=== PATIENT | female | born 1955 | race Caucasian/White ===

== ENCOUNTER 2022-03-10 06:55 | Inpatient (IN) | payer MEDICARE ==
[2022-03-10] MEDS ORDERED: SODIUM CHLORIDE 0.9% 1,000 ML IV ONE (07:05)
[2022-03-10] MEDS ORDERED: ASPIRIN 325 MG TAB ONE (07:05)
--- NOTE | 2022-03-10 07:07 | P.CRDCN ---
History of Present Illness History of present illness: HISTORY OF PRESENTING ILLNESS This is a pleasant 66-year-old with past medical history significant for depression/anxiety and no other medical problems. She has never had any prior cardiology complaints. She states she has had off-and-on mild upset stomach and heartburn type sensation or last 2 days however is fairly mild and then woke her up from her sleep at 5 AM this morning and felt somewhat diaphoretic. Patient therefore presented to [facility] and was found to have ST elevation. EKG showed sinus rhythm with ST elevation V1 and V2 and a lateral leads. Patient therefore was transferred to [facility] for heart catheterization and possible PCI. She denies any hematochezia or melena. No ALLERGIES other than penicillin. REVIEW OF SYSTEMS At the time of my exam: CONSTITUTIONAL: Denies fever or chills. CARDIOVASCULAR: +chest/ epigastric pain, +mild shortness of breath, no orthopnea, PND or palpitations. RESPIRATORY: Denies cough. GASTROINTESTINAL: Denies abdominal pain, diarrhea, constipation, +nausea no vomiting. MUSCULOSKELETAL: Denies myalgias. NEUROLOGIC: Denies numbness, tingling or weakness. ENDOCRINE: Denies fatigue, weight change, polydipsia or polyurina. GENITOURINARY: Denies burning, hematuria or urgency with micturation. HEMATOLOGIC: Denies history of anemia or bleeding. PHYSICAL EXAMINATION Vital signs reviewed. CONSTITUTIONAL: Mildly ill-appearing HEENT: Head is normocephalic. Pupils are equal, round. Sclerae anicteric. Mucous membranes of the mouth are moist. No JVD. No carotid bruit. CHEST EXAMINATION: Lungs are clear to auscultation. No chest wall tenderness is noted on palpation or with deep breathing. HEART EXAMINATION: Regular rate and rhythm. S1, S2 heard. No murmurs, gallops or rub. ABDOMEN: Soft, nontender. Positive bowel sounds. EXTREMITIES: 2+ peripheral pulses, no lower extremity edema and no calf tenderne ss. NEUROLOGIC EXAMINATION: Patient is awake, alert and oriented x3. ASSESSMENT 1. Anterolateral STEMI 2. History of depression/anxiety PLAN Discussed findings of EKG and risks and benefits of heart catheterization and possible PCI and patient is agreeable. Aspirin, heparin, check 2-D echo. Further recommendations to follow.
[2022-03-10] MEDS ORDERED: fentaNYL (PF) 50 MCG/ML 2 ML AMP ONE (07:08)
[2022-03-10] MEDS ORDERED: HEPARIN SODIUM 1,000 UN/ML (10ML VL) ONE (07:08)
[2022-03-10] MEDS ORDERED: LIDOCAINE 1% INJ 10MG/ML (5 ML VIAL-PF) SQ ONE (07:10)
[2022-03-10] MEDS ORDERED: fentaNYL (PF) 50 MCG/ML 2 ML AMP IV ONE (07:10)
[2022-03-10] MEDS ORDERED: MIDAZOLAM 2 MG/2 ML VIAL IV ONE (07:10)
[2022-03-10] MEDS ORDERED: VERAPAMIL SYRINGE (5 MG/10 ML) INTRAARTER ONE (07:14)
[2022-03-10] MEDS ORDERED: TICAGRELOR 90 MG TAB ONE (07:20)
[2022-03-10] MEDS ORDERED: TICAGRELOR 90 MG TAB PO ONE (07:20)
[2022-03-10] MEDS: HEPARIN SODIUM 1,000 UN/ML (10ML VL) IV ONE ×3 (07:20→07:41)
[2022-03-10] MEDS: NITROGLYCERIN 1000MCG/10ML SYRINGE INTRACORON ONE ×4 (07:34→07:50)
[2022-03-10] MEDS ORDERED: IOPAMIDOL-370 125ML BTL INJ ONE (07:45)
[2022-03-10] MEDS ORDERED: IOPAMIDOL-370 100ML BTL INJ ONE (07:55)
[2022-03-10] MEDS ORDERED: ZOLPIDEM 5 MG TAB PO PRN (08:07)
[2022-03-10] MEDS ORDERED: NITROGLYCERIN SL TABS 0.4 MG TAB SUBLINGUAL PRN (08:07)
[2022-03-10] MEDS ORDERED: ATROPINE SULFATE 0.1 MG/ML 10ML SYRINGE IV PRN (08:07)
[2022-03-10] MEDS ORDERED: RX INFO: IV CONTRAST WAS GIVEN 1 EACH MISC MISCELLANE PRN (08:07)
--- NOTE | 2022-03-10 08:07 | P.PRCINT ---
Percutaneous Coronary Int. - Percutaneous Coronary Intervention Percutaneous Coronary Intervention: PROCEDURES PERFORMED: Left heart catheterization, bilateral coronary angiography, PCI proximal LAD with a 3.0 x 15 mm Xience TJ post dilated with a 3.25 NC balloon, PCI mid LAD with a 2.75 x 8mm Xience TJ INDICATION: Anterior STEMI HISTORY: Patient is a pleasant 66-year-old female with family history of CAD, anxiety and GERD who presents with heartburn sensation as well as chest pain with associated diaphoresis and was found to have anterior lateral STEMI. She was transferred to [facility] from [facility]. CONSENT:I have discussed the risks, benefits and alternative therapies for the a rodolfo-mentioned procedure and for both sedation/analgesia as well as necessary blood product administration, if indicated, as they pertain to this patient. The patient has indicated understanding and acceptance of the risks and procedures discussed. PROCEDURE: After the risks, benefits and alternatives of the above mentioned procedure explained in detail with the patient, informed consent was obtained. Patient was taken to the catheterization lab and prepped and draped in usual fashion. 1% lidocaine was used to anesthetize the right radial artery. A 6- Serbian sheath was placed in the right radial artery using modified Seldinger technique. Left coronary angiography was performed with a 5-Serbian JL 3.5 catheter and right coronary angiography was performed with a 5-Serbian JR5 catheter in various views. The decision was made to perform PCI of the LAD. Heparin was given for ACT greater than 250. Initially a 6-Serbian CLS 3.0 catheter was attempted however somewhat of a superior takeoff and unable to reach. A 6-Serbian FL 3.5 catheter was also attempted however not able to easily engage. Therefore a 6-Serbian CLS 3.5 guide was used to engage the left main. A 0.014 BMW wire was advanced into the distal LAD. Predilation was performed with a 2.5 x 12 mm balloon. Next a 3.0 x 15 mm Xience TJ was placed proximally. There was a focal mid LAD 90% stenosis which was unimproved with any nitroglycerin and therefore PCI was performed of the mid LAD with a 2.75 x 8 mm Xience TJ. The proximal stent was postdilated with a 3.25 x 8 mm NC balloon. The wire was pulled and final an giograms were performed. Pre-intervention there was 100% stenosis and GINO 0 flow with an additional 90% mid LAD stenosis. Postintervention there was 0% stenosis and GINO-3 flow. There was mild to moderate diffuse distal LAD 40-50% stenosis felt best treated medically and likely some component of vasospasm. A 5-Serbian FR5 catheter was inserted into the left ventricle and pressure measurements were obtained. The right radial sheath was removed and a TR band was placed with hemostasis achieved. The patient tolerated the procedure well. Patient was transported back to the post catheterization holding area in stable condition. Conscious Sedation: Patient was monitored under the direct supervision of vision of myself for conscious sedation using Versed and fentanyl for a total duration of 50 minutes HEMODYNAMICS: Aorta: 105/71 LV: 93/8, LVEDP 15 SELECTIVE CORONARY ARTERIOGRAPHY: LEFT MAIN: The left main is a large caliber vessel which bifurcates into the LAD and circumflex. There is no significant stenosis. LEFT ANTERIOR DESCENDING CORONARY ARTERY: LAD is a large caliber vessel which wraps around to the apex. There is a proximal LAD 100% stenosis and a more focal mid LAD 90% stenosis. There is diffuse distal LAD 40-50% stenosis likely some component of vasospasm. LEFT CIRCUMFLEX CORONARY ARTERY: Left circumflex is a moderate caliber vessel with mild luminal irregularities. RIGHT CORONARY ARTERY: The right coronary artery is a large caliber vessel which gives off a PDA and PLV branch and is the dominant vessel. There is a mid RCA 50% stenosis and otherwise mild luminal irregularities. FINAL IMPRESSION: 1. CAD as described above including 100% proximal LAD, 90% mid LAD and 40-50% mid RCA stenosis. 2. S/p successful PCI proximal LAD with a 3.0 x 15 mm Xience TJ post dilated with a 3.25 NC balloon, PCI mid LAD with a 2.75 x 8mm Xience TJ 3. Borderline elevated left sided filling pressures PLAN: 1. Aggressive risk factor modification per most recent ACC/AHA guidelines. 2. Continue aspirin and Brillinta for a total of 12 months.
[2022-03-10 08:36] LABS: Glucose,Whole Blood 114 mg/dL (75-99)
--- NOTE | 2022-03-10 09:04 | P.PN ---
Subjective Progress Note Date: 03/10/22 The patient is a 66-year-old female with no significant past medical history who presented to the hospital this morning with new onset of chest discomfort with associated diaphoresis. The patient was subsequently diagnosed with an anterolateral ST elevated myocardial infarction. She underwent coronary an giogram where she received PCI to proximal and mid LAD. The patient is also noted to have an intermediate lesion in the mid RCA. The patient was interviewed and examined lying comfortably in ICU bed. She just returned from the [employer] lab[employer]. She states she is feeling much better since her stents were placed, although she may have some residual discomfort in her chest. No difficulty breathing. No heart racing or fluttering. GENERAL: Well-appearing, well-nourished and in no acute distress. NECK: Supple without JVD or thyromegaly. LUNGS: Breath sounds clear to auscultation bilaterally. Respiration equal and unlabored. No wheezes, rales or rhonchi. HEART: Regular rate and rhythm without murmurs, rubs or gallops. S1 and S2 heard. EXTREMITIES: Normal range of motion, no edema. No clubbing or cyanosis. Peripheral pulses intact and strong, TR band on the right wrist. TELEMETRY: Sinus mechanism IMPRESSION: ST elevated myocardial infarction, anterolateral, stenting to LAD PLAN: Echocardiogram pending Continue dual antiplatelet therapy and beta catarina Patient to be started on statin therapy Further recommendations will be based upon clinical course I am dictating on behalf of Dr Richard Rojas's history/physical and assessment/plan. Objective - Vital Signs Vital signs: Intake & Output 03/09/22 03/10/22 03/10/22 18:59 06:59 18:59 Intake Total 150 Balance 150 Weight 59 kg Intake: IV 150 - Labs Labs: Abnormal Lab Results - Last 24 Hours (Table) 03/10/22 Range/Units 08:35 POC Glucose (mg/dL) 114 H (75-99) mg/dL
[2022-03-10] MEDS: MAG HYDROX/AL HYDROX/SIMETH 30 ML CUP PO PRN (09:30)
[2022-03-10] MEDS: METOPROLOL TARTRATE 12.5 MG TAB PO SCH ×2 (09:30→20:03)
[2022-03-10] MEDS: SODIUM CHLORIDE 0.9% 1,000 ML in EMPTY BAG 1 BAG IV SCH (09:31)
[2022-03-10 10:22] VITALS: BMI 20.9
--- NOTE | 2022-03-10 12:01 | CA ---
Transthoracic Echo Report Name: La Matthews Age: 66 Gender: F : 1955 Exam Date: 03/10/2022 09:50 Exam Location: [place] [facility] Ht (in): 66 Wt (lb): 130 Ordering Physician: Rachel Hargrove Attending/Referring Phys: [id number], [employer] Teacher Valerie Yanez RDCS Procedure CPT: Indications: stemi Cardiac Hx: Technical Quality: Fair Contrast 1: Total Dose (mL): Contrast 2: Total Dose (mL): MEASUREMENTS (Male / Female) Normal Values 2D ECHO LV Diastolic Diameter PLAX 4.4 cm 4.2 - 5.9 / 3.9 - 5.3 cm LV Systolic Diameter PLAX 2.8 cm IVS Diastolic Thickness 1.3 cm 0.6 - 1.0 / 0.6 - 0.9 cm LVPW Diastolic Thickness 1.2 cm 0.6 - 1.0 / 0.6 - 0.9 cm LV Relative Wall Thickness 0.6 RV Internal Dim ED PLAX 2.7 cm LA Volume 56.1 cm??? 18 - 58 / 22 - 52 cm??? M-MODE Aortic Root Diameter MM 3.1 cm LA Systolic Diameter MM 3.3 cm LA Ao Ratio MM 1.1 AV Cusp Separation MM 1.9 cm DOPPLER AV Peak Velocity 96.0 cm/s AV Peak Gradient 3.7 mmHg LVOT Peak Velocity 90.1 cm/s LVOT Peak Gradient 3.2 mmHg MV Area PHT 2.7 cm??? Mitral E Point Velocity 54.7 cm/s Mitral A Point Velocity 56.1 cm/s Mitral E to A Ratio 1.0 MV Deceleration Time 276.1 ms MV E' Velocity 4.5 cm/s Mitral E to MV E' Ratio 12.1 TR Peak Velocity 214.9 cm/s TR Peak Gradient 18.5 mmHg Right Ventricular Systolic Press 23.5 mmHg FINDINGS Left Ventricle Mildly increased left ventricular wall thickness. Left ventricular cavity size normal. [place] hypokinetic. Apical anterior, Apical Inferior, Apical septal, Apical lateral wall Hypokinesis. Left ventricular ejection fraction is estimated at 30 to 35%. Right Ventricle Normal right ventricular size and function. Right ventricular systolic pressure within normal limits. Right Atrium Normal right atrial size. Left Atrium Mildly increased left atrial volume. No evidence for an atrial septal defect. Mitral Valve Mild mitral annular calcification. Mitral valve thickened. Mild mitral regurgitation. Aortic Valve Trileaflet aortic valve. Aortic valve sclerosis. No aortic valve stenosis or regurgitation. Tricuspid Valve Structurally normal tricuspid valve. Mild tricuspid regurgitation. Pulmonic Valve Structurally normal pulmonic valve. Trace pulmonic regurgitation. Pericardium No pericardial effusion. Aorta Normal size aortic root and proximal ascending aorta. CONCLUSIONS #1. Normal liver and left ankle size with severe hypokinesia of the apical segment anteroapical and inferoapical segment with severely impaired LV function and an ejection fraction of 30-35%. #2. Mild mitral regurgitation and tricuspid regurgitation Previewed by: Dr. Heath Kearney MD (Electronically Signed) Final Date: 10 March 2022 12:00
[2022-03-10] MEDS: FLUoxetine HCL 20 MG CAP PO SCH (12:24)
[2022-03-10] MEDS: ACETAMINOPHEN TAB 325 MG TAB PO PRN ×2 (12:24→20:07)
[2022-03-10] MEDS: PANTOPRAZOLE 40 MG/10 ML VIAL IVP SCH (12:25)
--- NOTE | 2022-03-10 13:54 | P.HPIM ---
History of Present Illness H&P Date: 03/10/22 Chief Complaint: Chest pain Patient is a 66-year-old female with a known history of anxiety/depression and GERD presents to ER with complaints of chest pain. Patient states that she woke up around 5 AM this morning with mid retrosternal chest pain. Initially she thought it might be due to her GERD symptoms but pain is not relieving. Associated shortness of breath and left arm aching feeling. Did have nausea. No episodes of vomiting. She felt diaphoretic and told her her roommate who brought her to ER. Initially patient presented to [facility] and found to have ST elevation in the anterior leads. She was transferred to [facility] for cardiac catheterization and stent placement. Otherwise patient denies any cough or sputum production. Recent illnesses. No exertional dyspnea. No leg swelling. No dizziness or palpitations. Patient underwent cardiac catheterization and stent placement x2 to LAD and patient was transferred to MICU for monitoring. Review of Systems Constitutional: Patient denies any fever or chills . No generalized weakness or weight loss. Abdomen: Patient denied nausea vomiting and diarrhea and abdominal pain. Cardiovascular: Patient denies any chest pain or short of breath no palpitations. Respiratory: patient denied any cough is from production. No shortness of breath Neurologic: Patient denied any numbness or tingling headache. Musculoskeletal: Patient denies any complaints of joint swelling or deformity. Skin: Negative Psychiatric: Negative Endocrine: No heat or cold intolerance. No recent weight gain. Genitourinary: No dysuria or hematuria. All other 14 point ROS negative except the above Past Medical History Past Medical History: GERD/Reflux, Myocardial Infarction (non Q-wave) Last Myocardial Infarction Date:: t History of Any Multi-Drug Resistant Organisms: None Reported Past Surgical History: No Surgical Hx Reported, Heart Catheterization With Stent Past Anesthesia/Blood Transfusion Reactions: No Reported Reaction Date of Last Stent Placement:: 03/10/2022 Past Psychological History: Anxiety, Depression Smoking Status: Current some day smoker Medications and Allergies Home Medications Medication Instructions Recorded Confirmed Type FLUoxetine HCL 40 mg PO DAILY 03/10/22 03/10/22 History Omeprazole 20 mg PO DAILY 03/10/22 03/10/22 History Allergies Allergy/AdvReac Type Severity Reaction Status Date / Time Penicillins AdvReac Rash/Hives Verified 03/10/22 11:29 Physical Exam Vitals: Vital Signs Temp Pulse Resp BP Pulse Ox 03/10/22 11:30 67 7 L 116/73 98 03/10/22 11:00 66 10 L 114/74 99 03/10/22 10:30 65 12 114/74 98 03/10/22 10:00 65 8 L 121/66 99 03/10/22 09:30 41 H 121/66 96 03/10/22 09:00 98.0 F 67 10 L 101/73 97 03/10/22 08:30 49 H 101/73 96 03/10/22 08:21 17 Intake and Output 03/09/22 03/10/22 03/10/22 22:59 06:59 14:59 Intake Total 866 Output Total 0 Balance 866 Intake: IV 150 Intake, IV Titration 236 Amount Sodium Chloride 0.9% 1, 236 000 ml In Empty Bag 1 bag @ 1 ML/KG/HR 59 mls/hr IV .[id number] [facility] Rx#: [id number] Oral 480 Output: Urine 0 Other: Weight 59 kg PHYSICAL EXAMINATION: Patient is lying in the bed comfortably, no acute distress, awake alert and oriented.. HEENT: Normocephalic. Neck is supple. Pupils reactive. Nostrils clear. Oral cavity is moist. Neck reveals no JVD, carotid bruits, or thyromegaly. CHEST EXAMINATION: Trachea is central. Symmetrical expansion. Lung musa clear to auscultation and percussion. CARDIAC: Normal S1, S2 with no gallops. No murmurs ABDOMEN: Soft. Bowel sounds normal. No organomegaly. No abdominal bruits. Extremities: reveal no edema. No clubbing or cyanosis Neurologically awake, alert, oriented x3 with well-coordinated movements. No focal deficits noted Skin: No rash or skin lesions. Psychiatric: Coperative. Nonsuicidal Musculoskeletal: No joint swelling or deformity. Normal range of motion. Results Labs: Abnormal Lab Results - Last 24 Hours (Table) 03/10/22 Range/Units 08:35 POC Glucose (mg/dL) 114 H (75-99) mg/dL Thrombosis Risk Factor Assmnt - DVT/VTE Prophylaxis DVT/VTE Prophylaxis: Pharmacologic Prophylaxis ordered - Choose All That Apply Any of the Below Risk Factors Present?: Yes Each Factor Represents 1 point: Acute [place] Each Risk Factor Represents 2 Points: Age 61-74 years Thrombosis Risk Factor Assessment Total Risk Factor Score: 3 Thrombosis Risk Factor Assessment Level: Moderate Risk Assessment and Plan Assessment: Acute ST elevated [place] status post stent placement x2 to LAD Anxiety/depression GERD DVT prophylaxis with heparin subcu Plan: Patient will be continued on telemetry monitoring, continue with aspirin, Brilinta and metoprolol was started. Continue with statins and close monitoring in the MICU. Cardiology is on board. Current with home medications and follow- up closely. Time with Patient: Greater than 30
[2022-03-10] MEDS: HEPARIN SODIUM,PORCINE/PF 5,000 UNIT/0.5 ML SYRINGE SQ SCH (19:10)
[2022-03-10] MEDS: ATORVASTATIN 80 MG TAB PO SCH (20:03)
[2022-03-11] MEDS: HEPARIN SODIUM,PORCINE/PF 5,000 UNIT/0.5 ML SYRINGE SQ SCH ×3 (00:15→18:52)
[2022-03-11 06:12] LABS: Basophils # (A) 0.1 k/uL (0-0.2); Basophils % (A) 1 %; Eosinophils # (A) 0.1 k/uL (0-0.7); Eosinophils % (A) 1 %; HGB 11.4 gm/dL (11.4-16.0); Hypochromasia Slight; Lymphocytes # (A) 1.7 k/uL (1.0-4.8); Lymphocytes % (A) 21 %; MCH 25.6 pg (25.0-35.0); MCHC 30.1 g/dL (31.0-37.0); MCV 84.9 fL (80.0-100.0); Mean Platelet Volume 7.2; Monocytes # (A) 0.4 k/uL (0-1.0); Monocytes % (A) 5 %; Neutrophils # (A) 5.7 k/uL (1.3-7.7); Neutrophils % (A) 72 %; Platelet Count 326 k/uL (150-450); RBC 4.48 m/uL (3.80-5.40); RDW 14.6 % (11.5-15.5); WBC 7.9 k/uL (3.8-10.6)
[2022-03-11] MEDS: PANTOPRAZOLE 40 MG/10 ML VIAL IVP SCH (06:54)
[2022-03-11 06:55] LABS: African American GFR (CKD) 85 (>60 ml/min/1.73 sqM); Anion Gap 4 mmol/L; Blood Urea Nitrogen 17 mg/dL (7-17); Calcium 8.7 mg/dL (8.4-10.2); Carbon Dioxide 25 mmol/L (22-30); Chloride 104 mmol/L (98-107); Glucose 101 mg/dL (74-99); Non-African American GFR(CKD) 74 (>60 ml/min/1.73 sqM); Potassium 4.6 mmol/L (3.5-5.1); Sodium 133 mmol/L (137-145)
[2022-03-11] MEDS: SODIUM CHLORIDE 0.9% 1,000 ML in EMPTY BAG 1 BAG IV SCH ×2 (08:34→18:52)
[2022-03-11] MEDS: METOPROLOL TARTRATE 25 MG TAB PO SCH ×2 (08:35→20:54)
[2022-03-11] MEDS: FLUoxetine HCL 20 MG CAP PO SCH (08:35)
[2022-03-11] MEDS: TICAGRELOR 90 MG TAB PO SCH ×2 (08:35→20:54)
[2022-03-11] MEDS: ASPIRIN 81 MG PO SCH (08:35)
--- NOTE | 2022-03-11 09:10 | P.PN ---
Subjective Progress Note Date: 03/11/22 The patient is a 66-year-old female with no significant past medical history who presented to the hospital this morning with new onset of chest discomfort with associated diaphoresis. The patient was subsequently diagnosed with an anterolateral ST elevated myocardial infarction. She underwent coronary an giogram where she received PCI to proximal and mid LAD. The patient is also noted to have an intermediate lesion in the mid RCA. Echocardiogram reveals reduced LV function at 30-35% with apical hypokinesis. No significant valvular abnormalities. The patient was interviewed and examined lying comfortably in ICU bed. She states she did well overnight. She is feeling much better since her initial presentation. No chest pain or chest pressure. No heart racing or fluttering. No dizziness or orthopnea. GENERAL: Well-appearing, well-nourished and in no acute distress. NECK: Supple without JVD or thyromegaly. LUNGS: Breath sounds clear to auscultation bilaterally. Respiration equal and unlabored. No wheezes, rales or rhonchi. HEART: Regular rate and rhythm without murmurs, rubs or gallops. S1 and S2 heard. EXTREMITIES: Normal range of motion, no edema. No clubbing or cyanosis. Periph eral pulses intact and strong, +2 pulse right wrist. Minimal bruising VITALS: Blood pressure 106/71 pulse 66, temp 98.4F, SpO2 93% on room air TELEMETRY: Sinus mechanism with heart rates in the 60s to 70s LAB DATA: WBC 7.9, hemoglobin 11.4, hematocrit 38.0, platelet 326, sodium 133, potassium 4 .6, BUN 17, creatinine 0.82, TSH 2.5 IMPRESSION: ST elevated myocardial infarction, anterolateral, stenting to LAD Ischemic cardiomyopathy, EF 30-35% History of anxiety and depression PLAN: Increase metoprolol to 25 mg twice daily Consideration for starting spironolactone Patient may be transferred to stepdown unit Further recommendations will be based upon clinical course I am dictating on behalf of Dr Richard Rojas's history/physical and assessment/plan. Objective - Vital Signs Vital signs: Vital Signs Temp 98.4 F 03/11/22 08:30 Pulse 66 03/11/22 08:30 Resp 18 03/11/22 08:30 BP 106/71 03/11/22 08:30 Pulse Ox 93 L 03/11/22 08:30 FiO2 Intake & Output 03/10/22 03/11/22 03/11/22 18:59 06:59 18:59 Intake Total 1639 59 240 Output Total 350 600 0 Balance 1289 -541 240 Weight 59 kg 71.3 kg Intake: IV 150 Intake, IV Titration 649 59 Amount Sodium Chloride 0.9% 1, 649 59 000 ml In Empty Bag 1 bag @ 1 ML/KG/HR 59 mls/hr IV .[id number] [facility] Rx#: [id number] Oral 840 240 Output: Urine 350 600 0 - Labs CBC & Chem 7: 03/11/22 05:58 03/11/22 05:58 Labs: Abnormal Lab Results - Last 24 Hours (Table) 03/11/22 03/11/22 Range/Units 05:58 05:58 MCHC 30.1 L (31.0-37.0) g/dL Sodium 133 L (137-145) mmol/L Glucose 101 H (74-99) mg/dL
[2022-03-11 17:34] LABS: Chol/HDL Ratio 4.71 Ratio; LDL Cholesterol,Calculated 152.1 mg/dL (0.0-131.0)
--- NOTE | 2022-03-11 20:52 | P.PN ---
Subjective Progress Note Date: 03/11/22 Patient is a 66-year-old female with a known history of anxiety/depression and GERD presents to ER with complaints of chest pain. Patient states that she woke up around 5 AM this morning with mid retrosternal chest pain. Initially she thought it might be due to her GERD symptoms but pain is not relieving. Associated shortness of breath and left arm aching feeling. Did have nausea. No episodes of vomiting. She felt diaphoretic and told her her roommate who brought her to ER. Initially patient presented to [facility] and found to have ST elevation in the anterior leads. She was transferred to [facility] for cardiac catheterization and stent placement. Otherwise patient denies any cough or sputum production. Recent illnesses. No exertional dyspnea. No leg swelling. No dizziness or palpitations. Patient underwent cardiac catheterization and stent placement x2 to LAD and patient was transferred to MICU for monitoring. 03/11/2022 Patient is seen in follow up today and is status post stents being placed to the LAD. Cardiology following and recommend to continue telemetry monitoring. Patient possibly to be transferred out of the ICU to selective unit today if bed is available. Patient is afebrile and denies chest pain or shortness of breath. Patient reports to being lethargic today and not much sleep last night. Patient encouraged to increase activity as tolerated and encouraged oral intake. Review of systems: Constitutional: reports of fatigue, no fever, or chills Cardiovascular: No reports of chest pain or palpitations Respiratory: No reports of shortness of breath or cough GI: No reports of nausea, no reports of of vomiting : No reports of dysuria or retention Neurovascular: no reports of generalized weakness All medications have been reviewed PHYSICAL EXAMINATION: Patient is lying in the bed comfortably, no acute distress, awake alert and oriented.. HEENT: Normocephalic. Neck is supple. Pupils reactive. Nostrils clear. Oral cavity is moist. Neck reveals no JVD, carotid bruits, or thyromegaly. CHEST EXAMINATION: Trachea is central. Symmetrical expansion. Lung musa clear to auscultation and percussion. CARDIAC: Normal S1, S2 with no gallops. No murmurs ABDOMEN: Soft. Bowel sounds normal. No organomegaly. No abdominal bruits. Extremities: reveal no edema. No clubbing or cyanosis Neurologically awake, alert, oriented x3 with well-coordinated movements. No focal deficits noted Skin: No rash or skin lesions. Psychiatric: Cooperative. Non-suicidal Musculoskeletal: No joint swelling or deformity. Normal range of motion. Assessment: Acute ST elevated [place] status post stent placement x2 to LAD Anxiety/depression GERD DVT prophylaxis with heparin subcu GI prophylaxis Full code Plan: Patient will be continued on telemetry monitoring, continue with aspirin, Brilinta and metoprolol was started. Continue with statins and close monitoring in the MICU. Possible transfer to selective unit out of ICU today. Cardiology is on board. Encouraged oral intake and increased activity as tolerated. Discussed lifestyle modifications and diet preferences. Follow up with am labs and possible discharge in 24 hours. The impression and plan of care has been dictated by Alanna Bingham, Nurse Practitioner as directed. Dr. Kati MD I have performed a history and examination and MDM of this patient, discussed the same with the dictator, and agree with the dictator's assessment and plan as written ,documented as a scribe. Based on total visit time, I have performed more than 50% of the visit. Objective - Vital Signs Vital signs: Vital Signs Temp 98.4 F 03/11/22 08:30 Pulse 66 03/11/22 08:30 Resp 18 03/11/22 08:30 BP 106/71 03/11/22 08:30 Pulse Ox 93 L 03/11/22 08:30 FiO2 Intake & Output 03/10/22 03/11/22 03/11/22 18:59 06:59 18:59 Intake Total 1639 59 240 Output Total 350 600 0 Balance 1289 -541 240 Weight 59 kg 71.3 kg Intake: IV 150 Intake, IV Titration 649 59 Amount Sodium Chloride 0.9% 1, 649 59 000 ml In Empty Bag 1 bag @ 1 ML/KG/HR 59 mls/hr IV .[id number] [facility] Rx#: [id number] Oral 840 240 Output: Urine 350 600 0 - Labs CBC & Chem 7: 03/11/22 05:58 03/11/22 05:58 Labs: Abnormal Lab Results - Last 24 Hours (Table) 03/11/22 03/11/22 Range/Units 05:58 05:58 MCHC 30.1 L (31.0-37.0) g/dL Sodium 133 L (137-145) mmol/L Glucose 101 H (74-99) mg/dL
[2022-03-11] MEDS: ATORVASTATIN 80 MG TAB PO SCH (20:53)
[2022-03-11 22:11] LABS: Glucose,Whole Blood 110 mg/dL (75-99)
[2022-03-12] MEDS: HEPARIN SODIUM,PORCINE/PF 5,000 UNIT/0.5 ML SYRINGE SQ SCH ×4 (00:33→23:24)
[2022-03-12] MEDS: PANTOPRAZOLE 40 MG TABLET PO SCH (06:26)
[2022-03-12 07:44] LABS: Calcium 8.7 mg/dL (8.4-10.2); Potassium 4.7 mmol/L (3.5-5.1)
[2022-03-12] MEDS ORDERED: SPIRONOLACTONE 25 MG TAB PO SCH ×2 (09:15→21:00)
[2022-03-12] MEDS: FLUoxetine HCL 20 MG CAP PO SCH (09:35)
[2022-03-12] MEDS: ASPIRIN 81 MG PO SCH (09:36)
[2022-03-12] MEDS: TICAGRELOR 90 MG TAB PO SCH ×2 (09:36→19:40)
[2022-03-12] MEDS: METOPROLOL TARTRATE 25 MG TAB PO SCH ×2 (09:36→19:40)
--- NOTE | 2022-03-12 11:05 | XR ---
EXAMINATION TYPE: XR chest 1V portable DATE OF EXAM: 03/12/2022 COMPARISON: NONE HISTORY: Shortness of breath TECHNIQUE: Single frontal view of the chest is obtained. FINDINGS: Minimal bilateral apical pleural thickening. Suspected COPD changes. Grossly unremarkable lungs other constantino. No sizable pleural effusion or definite pneumothorax. No cardiomegaly. Questionable small sliding hia pa hernia. No gross aggressive bone lesion. IMPRESSION: As above.
--- NOTE | 2022-03-12 13:04 | P.PN ---
Subjective This is a pleasant 66-year-old with past medical history significant for depression/anxiety and no other medical problems. She has never had any prior cardiology complaints. 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 Patient initially presented to [facility] with off-and-on mild upset stomach and heartburn type sensation or last 2 days, she woke her up from her sleep felt somewhat diaphoretic. Patient therefore presented to [facility] and was found to have ST elevation. EKG showed sinus rhythm with ST elevation V1 and V2 and a lateral leads. Patient was transferred to [facility] for heart catheterization and possible PCI. 03/10/2022- Patient underwent cardiac catheterization with Dr. Loyd, which revealed 100% proximal LAD, 90% mid LAD and 40-50% mid RCA stenosis. She underwent successful PCI to proximal LAD and mid LAD. Echocardiogram revealed reduced LV function at 30-35% with apical hypokinesis. No significant valvular abnormalities. 03/12/2022 Patient seen and examined at bedside, no acute distress. She denies any chest pain. Overnight she did wake up with shortness of breath x 1. No acute events on telemetry. No hypertension noted. no hypoxia. She was placed back on Oxygen and no further events occurred. Blood pressure 104/65, heart rate 61, she is maintaining sinus mechanism with heart rate in the 60s to 70s. She is currently maintained on dual antiplatelet therapy with aspirin and Brilinta, atorvastatin 80 mg nightly, metoprolol tartrate 25 mg twice a day. PHYSICAL EXAMINATION Vital signs reviewed. CONSTITUTIONAL: No acute distress. HEENT: Neck Supple. No JVD. No carotid bruit. CHEST EXAMINATION: Lungs are clear to auscultation. No chest wall tenderness is noted on palpation or with deep breathing. HEART EXAMINATION: Regular rate and rhythm. S1, S2 heard. No murmurs, gallops or rub. ABDOMEN: Soft, nontender. Positive bowel sounds. EXTREMITIES: 2+ peripheral pulses, no lower extremity edema and no calf tenderness. NEUROLOGIC EXAMINATION: Patient is awake, alert and oriented x3. SKIN: right radial cath site clean dry intact no hematoma ASSESSMENT Anterolateral STEMI Status post PCI to proximal LAD and mid LAD on 03/10/2022 Ischemic cardiomyopathy with EF 30-35% Hypotension Dyslipidemia History of depression/anxiety Episode of shortness of breath 6/7 night, possibly related to Brilinta will monitor PLAN Add Spironolactone 12.5mg daily Check BMP tomorrow Dual antiplatelet therapy with aspirin and Brilinta Continue statin and metoprolol Not on ACEI secondary to hypotension Case management consulted for Brilinta coverage, $141 for 3 month supply, 1 month free. Continue to monitor patient for additional 24 hours. Further recommendations based on clinical course Nurse practitioner note has been reviewed by physician. Signing provider agrees with the documented findings, assessment, and plan of care. Objective - Vital Signs Vital signs: Vital Signs Temp 98.1 F 03/12/22 08:00 Pulse 61 03/12/22 12:00 Resp 18 03/12/22 12:00 BP 104/65 03/12/22 12:00 Pulse Ox 98 03/12/22 12:00 FiO2 Intake & Output 03/11/22 03/12/22 03/12/22 18:59 06:59 18:59 Intake Total 1080 240 Output Total 600 Balance 480 240 Intake: Oral 1080 240 Output: Urine 600 Other: Voiding Method Toilet # Voids 0 - Labs CBC & Chem 7: 03/11/22 05:58 03/12/22 06:37 Labs: Abnormal Lab Results - Last 24 Hours (Table) 03/11/22 03/11/22 03/12/22 Range/Units 05:58 22:08 06:37 Sodium 131 L (137-145) mmol/L Carbon Dioxide 21 L (22-30) mmol/L Glucose 100 H (74-99) mg/dL POC Glucose (mg/dL) 110 H (75-99) mg/dL Triglycerides 165.00 H (0.00-149.00) mg/dL Cholesterol 235.00 H (0.00-200.00) mg/dL LDL Cholesterol, Calc 152.1 H (0.0-131.0) mg/dL
--- NOTE | 2022-03-12 14:39 | P.PN ---
Subjective Progress Note Date: 03/12/22 Patient is a 66-year-old female with a known history of anxiety/depression and GERD presents to ER with complaints of chest pain. Patient states that she woke up around 5 AM this morning with mid retrosternal chest pain. Initially she thought it might be due to her GERD symptoms but pain is not relieving. Associated shortness of breath and left arm aching feeling. Did have nausea. No episodes of vomiting. She felt diaphoretic and told her her roommate who brought her to ER. [facility] patient presented to [facility] and found to have ST elevation in the anterior leads. She was transferred to [facility] for cardiac catheterization and stent placement. Otherwise patient denies any cough or sputum production. Recent illnesses. No exertional dyspnea. No leg swelling. No dizziness or palpitations. Patient underwent cardiac catheterization and stent placement x2 to LAD and patient was transferred to MICU for monitoring. 03/11/2022 Patient is seen in follow up today and is status post stents being placed to the LAD. Cardiology following and recommend to continue telemetry monitoring. Patient possibly to be transferred out of the ICU to selective unit today if bed is available. Patient is afebrile and denies chest pain or shortness of breath. Patient reports to being lethargic today and not much sleep last night. Patient encouraged to increase activity as tolerated and encouraged oral intake. 03/12/2022 Patient is seen in follow-up today currently maintained on 2 L as patient reports she had some mild shortness of breath overnight and was placed on oxygen and is feeling better. Patient blood pressure on the lower side as well with multiple medication adjustments with cardiology following closely. Case management working on insurance verification of coverage for HOSTEXta. Will order chest x-ray. Sodium on the lower side at 131 and patient reports tonight eating very much and not having much of an appetite. Patient also reports she d id have severe epigastric discomfort prior to ER admission which has since resolved. Patient is maintained on Protonix and will continue for now. Patient is afebrile and denies any chest pain. Patient was also started on low- dose Aldactone and encourage the patient to increase activity as tolerated and will also order incentive spirometer. Family member at the bedside and questions and concerns were answered. Review of systems: Constitutional: reports of fatigue, no fever, or chills Cardiovascular: No reports of chest pain or palpitations Respiratory: No reports of shortness of breath or cough GI: No reports of nausea, no reports of of vomiting : No reports of dysuria or retention Neurovascular: no reports of generalized weakness All medications have been reviewed Active Medications Acetaminophen (Acetaminophen Tab 325 Mg Tab) 650 mg PO Q4HR PRN PRN Reason: Fever and/ or MILD Pain Last Admin: 03/10/22 20:07 Dose: 650 mg Al Hydroxide/Mg Hydroxide (Mag Hydrox/Al Hydrox/Simeth 30 Ml Cup) 30 ml PO Q4HR PRN PRN Reason: Heartburn Last Admin: 03/10/22 09:30 Dose: 30 ml Aspirin (Aspirin 81 Mg) 81 mg PO DAILY [facility] Last Admin: 03/12/22 09:36 Dose: 81 mg Atorvastatin Calcium (Atorvastatin 80 Mg Tab) 80 mg PO HS [facility] Last Admin: 03/11/22 20:53 Dose: 80 mg Atropine Sulfate (Atropine Sulfate 0.1 Mg/Ml 10ml Syringe) 0.5 mg IV ONCE PRN PRN Reason: Symptomatic Bradycardia Fluoxetine HCl (Fluoxetine Hcl 20 Mg Cap) 40 mg PO DAILY [facility] Last Admin: 03/12/22 09:35 Dose: 40 mg Heparin Sodium (Porcine) (Heparin Sodium,Porcine/Pf 5,000 Unit/0.5 Ml Syringe) 5,000 unit SQ Q8HR [facility] Last Admin: 03/12/22 09:36 Dose: 5,000 unit Sodium Chloride 1,000 ml/ IV (Solution) 1,000 mls @ 59 mls/hr IV .[id number] [facility] Last Admin: 03/11/22 18:52 Dose: Not Given Metoprolol Tartrate (Metoprolol Tartrate 25 Mg Tab) 25 mg PO BID [facility] Last Admin: 03/12/22 09:36 Dose: 25 mg Nitroglycerin (Nitroglycerin Sl Tabs 0.4 Mg Tab) 0.4 mg SUBLINGUAL Q5M PRN PRN Reason: Chest Pain Pantoprazole Sodium (Pantoprazole 40 Mg Tablet) 40 mg PO [id number] [facility] Last Admin: 03/12/22 06:26 Dose: 40 mg Spironolactone (Spironolactone 25 Mg Tab) 12.5 mg PO DAILY [facility] Last Admin: 03/12/22 09:36 Dose: 12.5 mg Ticagrelor (Ticagrelor 90 Mg Tab) 90 mg PO BID [facility]; Protocol Last Admin: 03/12/22 09:36 Dose: 90 mg Zolpidem Tartrate (Zolpidem 5 Mg Tab) 5 mg PO HS PRN PRN Reason: Insomnia PHYSICAL EXAMINATION: Patient is sitting up in the bed comfortably, no acute distress, awake alert and oriented.. HEENT: Normocephalic. Neck is supple. Pupils reactive. Nostrils clear. Oral cavity is moist. Neck reveals no JVD, carotid bruits, or thyromegaly. CHEST EXAMINATION: Trachea is central. Symmetrical expansion. Diminished breath sounds bilaterally otherwise Lung musa clear to auscultation and percussion. CARDIAC: Normal S1, S2 with no gallops. No murmurs ABDOMEN: Soft. Bowel sounds normal. No organomegaly. No abdominal bruits. Extremities: reveal no edema. No clubbing or cyanosis Neurologically awake, alert, oriented x3 with well-coordinated movements. No focal deficits noted Skin: No rash or skin lesions. Psychiatric: Cooperative. Non-suicidal Musculoskeletal: No joint swelling or deformity. Normal range of motion. Assessment: Acute ST elevated CT status post stent placement x2 to LAD Anxiety/depression GERD DVT prophylaxis with heparin subcu GI prophylaxis Full code Plan: Patient will be continued on telemetry monitoring, continue with aspirin, Brilinta and metoprolol and low-dose Aldactone also being added. Patient is currently on the selected unit on 3 S. Patient had some shortness of breath overnight and was placed on 2 L of oxygen and reports some continued shortness of breath and chest x-ray was done which showed minimal bilateral apical pleural thickening suspected COPD changes with grossly unremarkable lungs otherwise with no sizable pleural effusion or definite pneumothorax with a questionable small sliding hiatal hernia. Will add incentive spirometer and encouraged increased activity as tolerated. Will follow-up with repeat labs in the morning and continue to monitor closely. Cardiology is on board. Discussed lifestyle modifications and diet preferences. Follow up with am labs and possible discharge in 24-48 hours. The impression and plan of care has been dictated by Alanna Bingham, Nurse Practitioner as directed. Dr. Kati MD I have performed a history and examination and MDM of this patient, discussed the same with the dictator, and agree with the dictator's assessment and plan as written ,documented as a scribe. Based on total visit time, I have performed more than 50% of the visit. Objective - Vital Signs Vital signs: Vital Signs Temp 98 F 03/12/22 04:00 Pulse 69 03/12/22 04:00 Resp 18 03/12/22 04:00 BP 109/66 03/12/22 04:00 Pulse Ox 96 03/12/22 04:00 FiO2 Intake & Output 03/11/22 03/12/22 03/12/22 18:59 06:59 18:59 Intake Total 1080 Output Total 600 Balance 480 Intake: Oral 1080 Output: Urine 600 Other: Voiding Method Toilet # Voids 0 - Labs CBC & Chem 7: 03/11/22 05:58 03/12/22 06:37 Labs: Abnormal Lab Results - Last 24 Hours (Table) 03/11/22 03/11/22 03/12/22 Range/Units 05:58 22:08 06:37 Sodium 131 L (137-145) mmol/L Carbon Dioxide 21 L (22-30) mmol/L Glucose 100 H (74-99) mg/dL POC Glucose (mg/dL) 110 H (75-99) mg/dL Triglycerides 165.00 H (0.00-149.00) mg/dL Cholesterol 235.00 H (0.00-200.00) mg/dL LDL Cholesterol, Calc 152.1 H (0.0-131.0) mg/dL
[2022-03-12] MEDS: SODIUM CHLORIDE 0.9% 1,000 ML in EMPTY BAG 1 BAG IV SCH (19:07)
[2022-03-12] MEDS: ALPRAZolam 0.25 MG TAB PO PRN (19:40)
[2022-03-12] MEDS: ATORVASTATIN 80 MG TAB PO SCH (19:40)
[2022-03-13] MEDS: SODIUM CHLORIDE 0.9% 1,000 ML in EMPTY BAG 1 BAG IV SCH ×2 (05:49→20:04)
[2022-03-13] MEDS: PANTOPRAZOLE 40 MG TABLET PO SCH (06:02)
[2022-03-13 08:06] LABS: Calcium 8.9 mg/dL (8.4-10.2); Magnesium 2.1 mg/dL (1.6-2.3); Potassium 4.5 mmol/L (3.5-5.1)
[2022-03-13] MEDS ORDERED: SODIUM CHLORIDE 0.9% 500 ML 250 ML IV ONE (08:54)
[2022-03-13] MEDS: FLUoxetine HCL 20 MG CAP PO SCH (09:14)
[2022-03-13] MEDS: ASPIRIN 81 MG PO SCH (09:15)
[2022-03-13] MEDS: TICAGRELOR 90 MG TAB PO SCH ×2 (09:15→20:11)
[2022-03-13] MEDS: METOPROLOL TARTRATE 25 MG TAB PO SCH ×2 (09:15→20:11)
[2022-03-13] MEDS: HEPARIN SODIUM,PORCINE/PF 5,000 UNIT/0.5 ML SYRINGE SQ SCH ×3 (09:15→22:51)
--- NOTE | 2022-03-13 13:14 | P.PN ---
Subjective This is a pleasant 66-year-old with past medical history significant for depression/anxiety and no other medical problems. She has never had any prior cardiology complaints. 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 Patient initially presented to [facility] with off-and-on mild upset stomach and heartburn type sensation or last 2 days, she woke her up from her sleep felt somewhat diaphoretic. Patient therefore presented to [facility] and was found to have ST elevation. EKG showed sinus rhythm with ST elevation V1 and V2 and a lateral leads. Patient was transferred to [facility] for heart catheterization and possible PCI. 03/10/2022- Patient underwent cardiac catheterization with Dr. Loyd, which revealed 100% proximal LAD, 90% mid LAD and 40-50% mid RCA stenosis. She underwent successful PCI to proximal LAD and mid LAD. Echocardiogram revealed reduced LV function at 30-35% with apical hypokinesis. No significant valvular abnormalities. 03/13/2022 Patient seen and examined at bedside, she states she is not feeling well. BP is low after starting spironolactone. Some symptoms of chest tightness and shortness of breath. No further acute shortness of breath overnight. No acute events on telemetry. Blood pressure 87/61, heart rate 59, she is maintaining sinus mechanism with heart rate in the 55 to 60s. She is currently maintained on dual antiplatelet therapy with aspirin and Brilinta, atorvastatin 80 mg nightly, metoprolol tartrate 25 mg twice a day, Spironolactone 12.5mg daily Sodium 134, potassium 4.5, BUN 14, serum creatinine 0.9, magnesium 2.1 PHYSICAL EXAMINATION Vital signs reviewed. CONSTITUTIONAL: No acute distress. HEENT: Neck Supple. No JVD. No carotid bruit. CHEST EXAMINATION: Lungs are clear to auscultation. No chest wall tenderness is noted on palpation or with deep breathing. HEART EXAMINATION: Regular rate and rhythm. S1, S2 heard. No murmurs, gallops or rub. ABDOMEN: Soft, nontender. Positive bowel sounds. EXTREMITIES: 2+ peripheral pulses, no lower extremity edema and no calf tenderness. NEUROLOGIC EXAMINATION: Patient is awake, alert and oriented x3. SKIN: right radial cath site clean dry intact no hematoma ASSESSMENT Anterolateral STEMI Status post PCI to proximal LAD and mid LAD on 03/10/2022 Ischemic cardiomyopathy with EF 30-35% Hypotension Dyslipidemia History of depression/anxiety Episode of shortness of breath 6/7 night, possibly related to Brilinta will monitor PLAN Stop Spironolactone Check BMP and CBC tomorrow Dual antiplatelet therapy with aspirin and Brilinta Continue statin and metoprolol Not on ACEI or spironolactone secondary to hypotension Case management consulted for Brilinta coverage, $141 for 3 month supply, 1 month free. Discussed with patient Continue to monitor patient for additional 24-48 hours Further recommendations based on clinical course Nurse practitioner note has been reviewed by physician. Signing provider agrees with the documented findings, assessment, and plan of care. Objective - Vital Signs Vital signs: Vital Signs Temp 97.8 F 03/13/22 07:40 Pulse 56 L 03/13/22 12:00 Resp 18 03/13/22 12:00 BP 103/51 03/13/22 12:00 Pulse Ox 100 03/13/22 12:00 FiO2 Intake & Output 03/12/22 03/13/22 03/13/22 18:59 06:59 18:59 Intake Total 480 240 Balance 480 240 Intake: Oral 480 240 Other: Voiding Method Toilet # Voids 3 1 - Labs CBC & Chem 7: 03/11/22 05:58 03/13/22 07:01 Labs: Abnormal Lab Results - Last 24 Hours (Table) 03/13/22 Range/Units 07:01 Sodium 134 L (137-145) mmol/L Glucose 102 H (74-99) mg/dL
--- NOTE | 2022-03-13 15:11 | P.PN ---
Subjective Progress Note Date: 03/13/22 Patient is a 66-year-old female with a known history of anxiety/depression and GERD presents to ER with complaints of chest pain. Patient states that she woke up around 5 AM this morning with mid retrosternal chest pain. Initially she thought it might be due to her GERD symptoms but pain is not relieving. Associated shortness of breath and left arm aching feeling. Did have nausea. No episodes of vomiting. She felt diaphoretic and told her her roommate who brought her to ER. Initially patient presented to [facility] and found to have ST elevation in the anterior leads. She was transferred to [facility] for cardiac catheterization and stent placement. Otherwise patient denies any cough or sputum production. Recent illnesses. No exertional dyspnea. No leg swelling. No dizziness or palpitations. Patient underwent cardiac catheterization and stent placement x2 to LAD and patient was transferred to MICU for monitoring. 03/11/2022 Patient is seen in follow up today and is status post stents being placed to the LAD. Cardiology following and recommend to continue telemetry monitoring. Patient possibly to be transferred out of the ICU to selective unit today if bed is available. Patient is afebrile and denies chest pain or shortness of breath. Patient reports to being lethargic today and not much sleep last night. Patient encouraged to increase activity as tolerated and encouraged oral intake. 03/12/2022 Patient is seen in follow-up today currently maintained on 2 L as patient reports she had some mild shortness of breath overnight and was placed on oxygen and is feeling better. Patient blood pressure on the lower side as well with multiple medication adjustments with cardiology following closely. Case management working on insurance verification of coverage for [employer]. Will order chest x-ray. Sodium on the lower side at 131 and patient reports tonight eating very much and not having much of an appetite. Patient also reports she d id have severe epigastric discomfort prior to ER admission which has since resolved. Patient is maintained on Protonix and will continue for now. Patient is afebrile and denies any chest pain. Patient was also started on low- dose Aldactone and encourage the patient to increase activity as tolerated and will also order incentive spirometer. Family member at the bedside and questions and concerns were answered. 03/13/2022 Patient is seen this morning with daughter at the bedside continues to have some weakness and intermittent shortness of breath and continued on 2 L via nasal cannula. Patient also having some hypotension and was recently started on Aldactone although being discontinued with cardiology following closely. Sodium has improved on today's labs and is currently 134 other labs within normal limits. Plan is for close observation with continue telemetry overnight and repeat labs in the a.m. and evaluate patient in the morning. Patient is getting a small IV fluid bolus for a blood pressure of 89/47 and will continue to monitor with frequent vital signs. This was discussed with the patient as well as the nursing staff. Patient is afebrile and denies chest pains or shortness of breath. Patient oxygen saturation is 99-100% on 2 L and discussed with nursing staff as well about weaning and monitoring while patient is up with exertion her oxygen saturations. Also discussed with the patient at length about getting up slowly and sitting at the edge of the bed for 1-2 minutes and then proceeding with getting up and is feeling any dizziness or lightheadedness to let nursing staff know. Review of systems: Constitutional: reports of fatigue, no fever, or chills, reports not feeling well and was low blood pressure Cardiovascular: No reports of chest pain or palpitations Respiratory: No reports of shortness of breath or cough GI: No reports of nausea, no reports of of vomiting, not much of an appetite at this time : No reports of dysuria or retention Neurovascular: no reports of generalized weakness All medications have been reviewed Active Medications Acetaminophen (Acetaminophen Tab 325 Mg Tab) 650 mg PO Q4HR PRN PRN Reason: Fever and/ or MILD Pain Last Admin: 03/10/22 20:07 Dose: 650 mg Al Hydroxide/Mg Hydroxide (Mag Hydrox/Al Hydrox/Simeth 30 Ml Cup) 30 ml PO Q4HR PRN PRN Reason: Heartburn Last Admin: 03/10/22 09:30 Dose: 30 ml Alprazolam (Alprazolam 0.25 Mg Tab) 0.25 mg PO BID PRN PRN Reason: Anxiety Last Admin: 03/12/22 19:40 Dose: 0.25 mg Aspirin (Aspirin 81 Mg) 81 mg PO DAILY MANUELA Last Admin: 03/13/22 09:15 Dose: 81 mg Atorvastatin Calcium (Atorvastatin 80 Mg Tab) 80 mg PO HS MANUELA Last Admin: 03/12/22 19:40 Dose: 80 mg Atropine Sulfate (Atropine Sulfate 0.1 Mg/Ml 10ml Syringe) 0.5 mg IV ONCE PRN PRN Reason: Symptomatic Bradycardia Fluoxetine HCl (Fluoxetine Hcl 20 Mg Cap) 40 mg PO DAILY [facility] Last Admin: 03/13/22 09:14 Dose: 40 mg Heparin Sodium (Porcine) (Heparin Sodium,Porcine/Pf 5,000 Unit/0.5 Ml Syringe) 5,000 unit SQ Q8HR [facility] Last Admin: 03/13/22 09:15 Dose: 5,000 unit Sodium Chloride 1,000 ml/ IV (Solution) 1,000 mls @ 59 mls/hr IV .[id number] [facility] Last Admin: 03/13/22 05:49 Dose: Not Given Metoprolol Tartrate (Metoprolol Tartrate 25 Mg Tab) 25 mg PO BID [facility] Last Admin: 03/13/22 09:15 Dose: 25 mg Nitroglycerin (Nitroglycerin Sl Tabs 0.4 Mg Tab) 0.4 mg SUBLINGUAL Q5M PRN PRN Reason: Chest Pain Pantoprazole Sodium (Pantoprazole 40 Mg Tablet) 40 mg PO [id number] [facility] Last Admin: 03/13/22 06:02 Dose: 40 mg Ticagrelor (Ticagrelor 90 Mg Tab) 90 mg PO BID [facility]; Protocol Last Admin: 03/13/22 09:15 Dose: 90 mg Zolpidem Tartrate (Zolpidem 5 Mg Tab) 5 mg PO HS PRN PRN Reason: Insomnia PHYSICAL EXAMINATION: Patient is sitting up in the bed comfortably, no acute distress, awake alert and oriented.. HEENT: Normocephalic. Neck is supple. Pupils reactive. Nostrils clear. Oral cavity is moist. Neck reveals no JVD, carotid bruits, or thyromegaly. CHEST EXAMINATION: Trachea is central. Symmetrical expansion. Diminished breath sounds bilaterally otherwise Lung musa clear to auscultation and percussion. CARDIAC: Normal S1, S2 with no gallops. No murmurs ABDOMEN: Soft. Bowel sounds normal. No organomegaly. No abdominal bruits. Extremities: reveal no edema. No clubbing or cyanosis Neurologically awake, alert, oriented x3 with well-coordinated movements. No focal deficits noted Skin: No rash or skin lesions. Psychiatric: Cooperative. Non-suicidal Musculoskeletal: No joint swelling or deformity. Normal range of motion. Assessment: Acute ST elevated [place] status post stent placement x2 to LAD Hypotension possibly secondary to Aldactone Anxiety/depression GERD DVT prophylaxis with heparin subcu GI prophylaxis Full code Plan: Patient will be continued on telemetry monitoring, continue with aspirin, Brilinta and metoprolol and Aldactone was discontinued today as patient is hypotensive. Given a small fluid bolus and recommend continue monitoring vital signs and continue with telemetry monitoring. Patient is currently on the selected unit on 3 S. Patient denying any further episodes of shortness of breath although continues on 2 L of oxygen and discussed with nursing staff about weaning FiO2 as tolerated and monitor vital signs and oxygen saturations while patient is up with exertion. incentive spirometer encouraged to be used at least 10 times every hour while awake and also increased activity as tolerated. Will follow-up with repeat labs in the morning and continue to monitor closely. Cardiology is on board. Discussed lifestyle modifications and diet preferences. Follow up with am labs and possible discharge in 24-48 hours. The impression and plan of care has been dictated by Alanna Bingham, Nurse Practitioner as directed. Dr. Kati MD I have performed a history and examination and MDM of this patient, discussed the same with the dictator, and agree with the dictator's assessment and plan as written ,documented as a scribe. Based on total visit time, I have performed more than 50% of the visit. Objective - Vital Signs Vital signs: Vital Signs Temp 97.8 F 03/13/22 07:40 Pulse 59 L 03/13/22 07:40 Resp 18 03/13/22 07:40 BP 89/47 03/13/22 07:40 Pulse Ox 99 03/13/22 07:40 FiO2 Intake & Output 03/12/22 03/13/22 03/13/22 18:59 06:59 18:59 Intake Total 480 Balance 480 Intake: Oral 480 Other: Voiding Method Toilet # Voids 3 1 - Labs CBC & Chem 7: 03/11/22 05:58 03/13/22 07:01 Labs: Abnormal Lab Results - Last 24 Hours (Table) 03/13/22 Range/Units 07:01 Sodium 134 L (137-145) mmol/L Glucose 102 H (74-99) mg/dL
[2022-03-13] MEDS: MAG HYDROX/AL HYDROX/SIMETH 30 ML CUP PO PRN (17:39)
[2022-03-13] MEDS: ATORVASTATIN 80 MG TAB PO SCH (20:11)
[2022-03-13] MEDS: ALPRAZolam 0.25 MG TAB PO PRN (20:11)
[2022-03-14] MEDS: PANTOPRAZOLE 40 MG TABLET PO SCH (06:54)
[2022-03-14] MEDS: HEPARIN SODIUM,PORCINE/PF 5,000 UNIT/0.5 ML SYRINGE SQ SCH (09:11)
[2022-03-14] MEDS: ASPIRIN 81 MG PO SCH (09:12)
[2022-03-14] MEDS: FLUoxetine HCL 20 MG CAP PO SCH (09:12)
[2022-03-14] MEDS: METOPROLOL TARTRATE 25 MG TAB PO SCH (09:12)
[2022-03-14] MEDS: TICAGRELOR 90 MG TAB PO SCH (09:12)
[2022-03-14 09:18] VITALS: RESP 17; TEMP 97.4
[2022-03-14 10:25] VITALS: BP 100/65; PULSE 64
[2022-03-14 12:29] LABS: Basophils % (A) 0 %; Eosinophils # (A) 0.1 k/uL (0-0.7); Eosinophils % (A) 1 %; HCT 35.4 % (34.0-46.0); HGB 11.1 gm/dL (11.4-16.0); Hypochromasia Moderate; Lymphocytes % (A) 12 %; MCH 26.6 pg (25.0-35.0); MCHC 31.3 g/dL (31.0-37.0); MCV 84.9 fL (80.0-100.0); Mean Platelet Volume 7.7; Monocytes # (A) 0.3 k/uL (0-1.0); Monocytes % (A) 4 %; Neutrophils # (A) 6.7 k/uL (1.3-7.7); Neutrophils % (A) 81 %; Platelet Count 297 k/uL (150-450); RBC 4.17 m/uL (3.80-5.40); WBC 8.3 k/uL (3.8-10.6)
--- NOTE | 2022-03-14 12:45 | P.PN ---
Subjective This is a pleasant 66-year-old with past medical history significant for depression/anxiety and no other medical problems. She has never had any prior cardiology complaints. She does not follow with a city director. Patient initially presented [facility] with off-and-on mild upset stomach and heartburn type sensation or last 2 days, she woke her up from her sleep felt somewhat diaphoretic. Patient therefore presented to [facility] and was found to have ST elevation. EKG showed sinus rhythm with ST elevation V1 and V2 and a lateral leads. Patient was transferred to [facility] for heart catheterization and possible PCI. 03/10/2022- Patient underwent cardiac catheterization with Dr. Loyd, which revealed 100% proximal LAD, 90% mid LAD and 40-50% mid RCA stenosis. She underwent successful PCI to proximal LAD and mid LAD. Echocardiogram revealed reduced LV function at 30-35% with apical hypokinesis. No significant valvular abnormalities. 03/13/2022 Patient seen and examined at bedside, she states she is not feeling well. BP is low after starting spironolactone. Some symptoms of chest tightness and shortness of breath. No further acute shortness of breath overnight. No acute events on telemetry. Blood pressure 87/61, heart rate 59, she is maintaining sinus mechanism with heart rate in the 55 to 60s. 03/14/2022 Patient seen and examined at bedside, she is feeling much better than yesterday. Denies any chest pain or shortness of breath. Spironolactone held. BP 109/63 HR 64, afebrile 98% on room air. She is currently maintained on dual antiplatelet therapy with aspirin and Brilinta, atorvastatin 80 mg nightly, metoprolol tartrate 25 mg twice a day PHYSICAL EXAMINATION Vital signs reviewed. CONSTITUTIONAL: No acute distress. HEENT: Neck Supple. No JVD. No carotid bruit. CHEST EXAMINATION: Lungs are clear to auscultation. No chest wall tenderness is noted on palpation or with deep breathing. HEART EXAMINATION: Regular rate and rhythm. S1, S2 heard. No murmurs, gallops or rub. ABDOMEN: Soft, nontender. Positive bowel sounds. EXTREMITIES: 2+ peripheral pulses, no lower extremity edema and no calf tenderness. NEUROLOGIC EXAMINATION: Patient is awake, alert and oriented x3. SKIN: right radial cath site clean dry intact no hematoma ASSESSMENT Anterolateral STEMI Status post PCI to proximal LAD and mid LAD on 03/10/2022 Ischemic cardiomyopathy with EF 30-35% Hypotension Dyslipidemia History of depression/anxiety Episode of shortness of breath 6/7 night, possibly related to Brilinta will monitor PLAN Orthostatics negative, patient is feeling well today, no acute events overnight. Patient cannot tolerate, ACEI or spironolactone secondary to hypotension Dual antiplatelet therapy with aspirin and Brilinta Continue statin and metoprolol Case management consulted for Brilinta coverage, $141 for 3 month supply, 1 month free. Discussed with patient she is agreeable From cardiology perspective, patient be discharged home. Follow up outpatient in one week with Dr. Loyd Nurse practitioner note has been reviewed by physician. Signing provider agrees with the documented findings, assessment, and plan of care. Objective - Vital Signs Vital signs: Vital Signs Temp 97.4 F L 03/14/22 08:00 Pulse 64 03/14/22 10:23 Resp 17 03/14/22 08:00 BP 100/65 03/14/22 10:23 Pulse Ox 98 03/14/22 10:23 FiO2 Intake & Output 03/13/22 03/14/22 03/14/22 18:59 06:59 18:59 Intake Total 600 240 Balance 600 240 Intake: Oral 600 240 Other: Voiding Method Toilet # Voids 1 1 - Labs CBC & Chem 7: 03/14/22 12:00 03/13/22 07:01 Labs: Abnormal Lab Results - Last 24 Hours (Table) 03/14/22 Range/Units 12:00 Hgb 11.1 L (11.4-16.0) gm/dL
[2022-03-14 13:03] LABS: Potassium 4.8 mmol/L (3.5-5.1)
--- NOTE | 2022-03-15 07:43 | P.DS ---
Providers Date of admission: 03/10/22 07:03 Expected date of discharge: 03/14/22 Attending physician: Emily Horn Consults: 03/10/22 08:07 Consult Physician Routine Consulting Provider: [facility] Consult Reason/Comments: Post Interventional patient Do you want consulting provider notified?: Already Contacted Primary care physician: Antonia Cee Hospital Course: Final Diagnosis Acute ST elevated [place] status post stent placement x2 to LAD Hypotension possibly secondary to Aldactone Anxiety/depression GERD DVT prophylaxis with heparin subcu GI prophylaxis Full code Discharge disposition Patient is being discharged in a stable condition with guarded prognosis to home. Patient will follow-up with Dr. Antonia Cee upon discharge. Patient will continue with brilinta bid and other cardiac medications as mentioned below. Patient needs follow up with Dr. Loyd in one week. Total time taken is greater than 35 minutes. Hospital course. 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 Patient will need close outpatient follow up with cardiology and pcp. Patient was started on low dose aldactone although unable to tolerate due to hypotension. Life style modifications including diet and exercise with restrictions discussed. Recommend follow up appointment and repeat labs in one week. Patient feeling much better and would like to go home. Daughter at the bedside with questions and concerns answered. Currently no reports of chest pain, shortness of breath, or palpitations. Patient is afebrile. No reports of nausea or vomiting and patient is tolerating diet. Patient will discharge home today. Physical exam: Gen: This is a 66 year old female awake and alert x 3. well developed and well nourished HEENT: Head is atraumatic, normocephalic. Pupils equal, round. Sclerae is anicteric. NECK: Supple. No JVD. No lymphadenopathy. No thyromegaly. LUNGS: diminished breath sounds bilaterally with no wheezing or rhonchi. No intercostal retractions. HEART: Regular rate and rhythm. No murmur. ABDOMEN: Soft.Bowel sounds are present. No masses. No tenderness. EXTREMITIES: No pedal edema. No calf tenderness. NEUROLOGICAL: Patient is awake, alert and oriented x3. Please refer to medication reconciliation sheet for a list of medications. The impression and plan of care has been dictated by Alanna Bingham, Nurse Practitioner as directed. Dr. Dena MD I have performed a history and examination and MDM of this patient, discussed the same with the dictator, and agree with the dictator's assessment and plan as written ,documented as a scribe. Based on total visit time, I have performed more than 50% of the visit. Patient Condition at Discharge: Stable Plan - Discharge Summary Discharge Rx Participant: No New Discharge Prescriptions: New Aspirin 81 mg PO DAILY 90 Days #90 tab Nitroglycerin Sl Tabs [Nitrostat] 0.4 mg SUBLINGUAL Q5M PRN #25 tab PRN Reason: Chest Pain Ticagrelor [Brilinta] 90 mg PO BID 90 Days #180 tab Atorvastatin [Lipitor] 80 mg PO HS 90 Days #90 tab Metoprolol Tartrate [Lopressor] 25 mg PO BID 30 Days #60 tab Acetaminophen Tab [Tylenol] 650 mg PO Q4HR PRN tab PRN Reason: Fever and/ or MILD Pain ALPRAZolam [Xanax] 0.25 mg PO BID PRN #6 tab PRN Reason: Anxiety Continue FLUoxetine HCL 40 mg PO DAILY Omeprazole 20 mg PO DAILY Discharge Medication List FLUoxetine HCL 40 mg PO DAILY 03/10/22 [History] Omeprazole 20 mg PO DAILY 03/10/22 [History] Aspirin 81 mg PO DAILY 90 Days #90 tab 03/12/22 [Rx] Atorvastatin [Lipitor] 80 mg PO HS 90 Days #90 tab 03/12/22 [Rx] Nitroglycerin Sl Tabs [Nitrostat] 0.4 mg SUBLINGUAL Q5M PRN #25 tab 03/12/22 [Rx] Ticagrelor [Brilinta] 90 mg PO BID 90 Days #180 tab 03/12/22 [Rx] ALPRAZolam [Xanax] 0.25 mg PO BID PRN #6 tab 03/14/22 [Rx] Acetaminophen Tab [Tylenol] 650 mg PO Q4HR PRN tab 03/14/22 [Rx] Metoprolol Tartrate [Lopressor] 25 mg PO BID 30 Days #60 tab 03/14/22 [Rx] Follow up Appointment(s)/Referral(s): Jeancarlos Loyd DO [STAFF PHYSICIAN] - 1 Week (office will call you to schedule- if you do not hear from them by Thursday -please call. ) Antonia Cee DO [Primary Care Provider] - 1 Week (please schedule follow up. ) Patient Instructions/Handouts: *Surgery [facility] - After Heart Catheterization - [facility] Instructions Activity/Diet/Wound Care/Special Instructions: Aly is $141 for a 90 day supply and will receive 1st month free. Activity Limited until follow-up Follow-up with cardiology and they will call you for an appointment, if not call them on Thursday afternoon Continue with heart healthy diet Continue with medications as prescribed When getting up get up slowly and sit at the side of the bed or chair for 1-2 minutes and slowly get up and if dizzy or lightheaded continue to sit down Follow-up with primary care provider on discharge Discharge Disposition: HOME SELF-CARE
== END 2022-03-14 15:15 | disposition home or self-care (01) | DRG 247 ==
LOC: 2SICU 07:03 → 3SCARD 03-11 23:57
PROVIDERS: ADMIT Hospitalist; ATTEND Hospitalist
PROC: B2111ZZ Fluoroscopy of Multiple Coronary Arteries using Low Osmolar Contrast (ICD-10-PCS; 2022-03-10)
PROC: B2151ZZ Fluoroscopy of Left Heart using Low Osmolar Contrast (ICD-10-PCS; 2022-03-10)
PROC: 027035Z Dilation of Coronary Artery, One Artery with Two Drug-eluting Intraluminal Devices, Percutaneous Approach (ICD-10-PCS; principal; 2022-03-10 06:58)
PROC: 4A023N7 Measurement of Cardiac Sampling and Pressure, Left Heart, Percutaneous Approach (ICD-10-PCS; 2022-03-10 06:58)
DX: I21.09 ST elevation (STEMI) myocardial infarction involving other coronary artery of anterior wall (principal); E78.5 Hyperlipidemia, unspecified; F17.200 Nicotine dependence, unspecified, uncomplicated; F32.A Depression, unspecified; F41.9 Anxiety disorder, unspecified; I25.10 Atherosclerotic heart disease of native coronary artery without angina pectoris; K21.9 Gastro-esophageal reflux disease without esophagitis; I25.5 Ischemic cardiomyopathy; Z79.899 Other long term (current) drug therapy; Z88.0 Allergy status to penicillin; Z82.49 Family history of ischemic heart disease and other diseases of the circulatory system; I95.2 Hypotension due to drugs; T50.0X5A Adverse effect of mineralocorticoids and their antagonists, initial encounter
CPT/HCPCS: 71045; 80048; 80061; 83735; 84443; 85025; 93306; 93458; 94760

== ENCOUNTER 2022-04-14 12:36 | Observation (INO) | payer MEDICARE ==
[2022-04-14] MEDS ORDERED: NITROGLYCERIN OINT 1 INCH/GM PACKET TOPICAL STA (12:50)
--- NOTE | 2022-04-14 12:52 | ED ---
General Adult HPI - General Stated complaint: Chest Pain Time Seen by Provider: 04/14/22 12:36 Source: patient, RN notes reviewed, old records reviewed - History of Present Illness Initial comments: This is a 66-year-old female who presents emergency Department complaining that she has chest pain for the last hour. Patient states the pressure sensation across her chest and she became really short of breath. Patient states that she took 2 nitroglycerin with the ambulance and an aspirin at home. Patient states it decreased the chest pressure but she still feels short of breath. Patient states she had a stent placed in March. Patient states she also has a strong family history. But she denies diabetes hypertension and she doesn't know about high cholesterol. Patient denies any recent fever chills or cough. Patient denies any back pain. Patient denies radiation of the pain. Patient denies any abdominal pain patient denies nausea vomiting diarrhea. Patient has swelling to legs or calf tenderness. - Related Data Home Medications Medication Instructions Recorded Confirmed FLUoxetine HCL 40 mg PO DAILY 03/10/22 04/14/22 Omeprazole 20 mg PO DAILY 03/10/22 04/14/22 busPIRone HCl [Buspar] 10 mg PO DAILY PRN 04/14/22 04/14/22 busPIRone HCl [Buspar] 10 mg PO HS 04/14/22 04/14/22 Previous Rx's Medication Instructions Recorded Aspirin 81 mg PO DAILY 90 Days #90 tab 03/12/22 Atorvastatin [Lipitor] 80 mg PO HS 90 Days #90 tab 03/12/22 Nitroglycerin Sl Tabs [Nitrostat] 0.4 mg SUBLINGUAL Q5M PRN #25 tab 03/12/22 Ticagrelor [Brilinta] 90 mg PO BID 90 Days #180 tab 03/12/22 Acetaminophen Tab [Tylenol] 650 mg PO Q4HR PRN tab 03/14/22 Metoprolol Tartrate [Lopressor] 25 mg PO BID 30 Days #60 tab 03/14/22 Allergies Allergy/AdvReac Type Severity Reaction Status Date / Time Penicillins Allergy Rash/Hives Verified 04/14/22 14:07 Review of Systems ROS Statement: Those systems with pertinent positive or pertinent negative responses have been documented in the HPI. ROS Other: All systems not noted in ROS Statement are negative. Past Medical History Past Medical History: GERD/Reflux, Myocardial Infarction (non Q-wave) Last Myocardial Infarction Date:: t History of Any Multi-Drug Resistant Organisms: None Reported Past Surgical History: No Surgical Hx Reported, Heart Catheterization With Stent Past Anesthesia/Blood Transfusion Reactions: No Reported Reaction Date of Last Stent Placement:: 03/10/2022 Past Psychological History: Anxiety, Depression Smoking Status: Current some day smoker General Exam - General Exam Comments Initial Comments: GENERAL: Patient is well-developed and well-nourished. Patient is nontoxic and well-hydrated and is in mild distress. ENT: Neck is soft and supple. No significant lymphadenopathy is noted. Oropharynx is clear. Moist mucous membranes. Neck has full range of motion without eliciting any pain. EYES: The sclera were anicteric and conjunctiva were pink and moist. Extraocular movements were intact and pupils were equal round and reactive to light. Eyelids were unremarkable. PULMONARY: Unlabored respirations. Good breath sounds bilaterally. No audible rales rhonchi or wheezing was noted. CARDIOVASCULAR: There is a regular rate and rhythm without any murmurs gallops or rubs. ABDOMEN: Soft and nontender with normal bowel sounds. SKIN: Skin is clear with no lesions or rashes and otherwise unremarkable. NEUROLOGIC: Patient is alert and oriented x3. Cranial nerves II through XII are grossly intact. Motor and sensory are also intact. Normal speech, volume and content. Symmetrical smile. MUSCULOSKELETAL: Normal extremities with adequate strength and full range of motion. No lower extremity swelling or edema. No calf tenderness. LYMPHATICS: No significant lymphadenopathy is noted PSYCHIATRIC: Normal psychiatric evaluation. Course Vital Signs 04/14/22 04/14/22 04/14/22 12:54 13:10 14:37 Temperature 98.6 F Pulse Rate 56 L 61 Respiratory 20 18 18 Rate Blood Pressure 109/62 103/68 O2 Sat by Pulse 97 96 Oximetry Medical Decision Making - Medical Decision Making EKG shows sinus bradycardia 56 bpm SC interval is on a 55 QRS is 78 QT interval 460 QTC is 451. Patient's EKG shows T-wave inversions in V1 2 and 3. Chest x-ray shows no acute abnormality. I will back into the patient's room to reevaluate the patient she stated her chest pain was improved though she was just feels overall weaker. I spoke with Dr. Esqueda he agreed to admit the patient admitted the patient I wrote admitting orders. - Lab Data Result diagrams: 04/14/22 13:10 04/14/22 13:10 Lab Results 04/14/22 04/14/22 04/14/22 Range/Units 13:10 13:10 13:10 WBC 6.9 (3.8-10.6) k/uL RBC 4.02 (3.80-5.40) m/uL Hgb 10.9 L (11.4-16.0) gm/dL Hct 33.7 L (34.0-46.0) % MCV 83.8 (80.0-100.0) fL MCH 27.0 (25.0-35.0) pg MCHC 32.2 (31.0-37.0) g/dL RDW 14.8 (11.5-15.5) % Plt Count 380 (150-450) k/uL MPV 7.8 Neutrophils % 81 % Lymphocytes % 11 % Monocytes % 5 % Eosinophils % 2 % Basophils % 0 % Neutrophils # 5.5 (1.3-7.7) k/uL Lymphocytes # 0.8 L (1.0-4.8) k/uL Monocytes # 0.3 (0-1.0) k/uL Eosinophils # 0.1 (0-0.7) k/uL Basophils # 0.0 (0-0.2) k/uL Hypochromasia Slight Sodium 134 L (137-145) mmol/L Potassium 4.6 (3.5-5.1) mmol/L Chloride 103 (98-107) mmol/L Carbon Dioxide 21 L (22-30) mmol/L Anion Gap 10 mmol/L BUN 18 H (7-17) mg/dL Creatinine 0.77 (0.52-1.04) mg/dL Est GFR (CKD-EPI)AfAm >90 (>60 ml/min/1.73 sqM) Est GFR (CKD-EPI)NonAf 80 (>60 ml/min/1.73 sqM) Glucose 116 H (74-99) mg/dL Calcium 8.6 (8.4-10.2) mg/dL Magnesium 1.9 (1.6-2.3) mg/dL Total Bilirubin 0.6 (0.2-1.3) mg/dL AST 27 (14-36) U/L ALT 11 (4-34) U/L Alkaline Phosphatase 93 (38-126) U/L Troponin I <0.012 (0.000-0.034) ng/mL Total Protein 5.9 L (6.3-8.2) g/dL Albumin 3.2 L (3.5-5.0) g/dL Disposition Clinical Impression: Chest pain Disposition: ADMITTED IP TO THIS HOSP Referrals: Antonia Cee DO [Primary Care Provider] - 1-2 days Time of Disposition: 15:16
--- NOTE | 2022-04-14 13:33 | XR ---
EXAMINATION TYPE: XR chest 2V DATE OF EXAM: 04/14/2022 COMPARISON: Chest x-ray March 12, 2022 HISTORY: Chest pain and shortness of breath. History of myocardial infarction. TECHNIQUE: Frontal and lateral views of the chest are obtained. FINDINGS: There is no suspicious new focal air space opacity, pleural effusion, or pneumothorax seen . The cardiac silhouette size remains within normal limits. The osseous structures are intact. Ove rlying EKG leads are redemonstrated. IMPRESSION: No acute process. No significant change from prior.
[2022-04-14 14:01] LABS: ALT 11 U/L (4-34); African American GFR (CKD) >90 (>60 ml/min/1.73 sqM); Albumin 3.2 g/dL (3.5-5.0); Anion Gap 10 mmol/L; Blood Urea Nitrogen 18 mg/dL (7-17); Calcium 8.6 mg/dL (8.4-10.2); Carbon Dioxide 21 mmol/L (22-30); Chloride 103 mmol/L (98-107); Glucose 116 mg/dL (74-99); Non-African American GFR(CKD) 80 (>60 ml/min/1.73 sqM); Sodium 134 mmol/L (137-145); Total Bilirubin 0.6 mg/dL (0.2-1.3); Total Protein 5.9 g/dL (6.3-8.2)
[2022-04-14 14:02] LABS: Basophils % (A) 0 %; Eosinophils # (A) 0.1 k/uL (0-0.7); Eosinophils % (A) 2 %; HCT 33.7 % (34.0-46.0); HGB 10.9 gm/dL (11.4-16.0); Hypochromasia Slight; Lymphocytes # (A) 0.8 k/uL (1.0-4.8); Lymphocytes % (A) 11 %; MCHC 32.2 g/dL (31.0-37.0); MCV 83.8 fL (80.0-100.0); Mean Platelet Volume 7.8; Monocytes # (A) 0.3 k/uL (0-1.0); Monocytes % (A) 5 %; Neutrophils # (A) 5.5 k/uL (1.3-7.7); Neutrophils % (A) 81 %; Platelet Count 380 k/uL (150-450); RBC 4.02 m/uL (3.80-5.40); RDW 14.8 % (11.5-15.5); WBC 6.9 k/uL (3.8-10.6)
[2022-04-14 14:06] LABS: AST 27 U/L (14-36); Alkaline Phosphatase 93 U/L (38-126); Magnesium 1.9 mg/dL (1.6-2.3); Potassium 4.6 mmol/L (3.5-5.1)
[2022-04-14 15:14] LABS: INR 0.9 (<1.2); Prothrombin Time 10.4 sec (9.0-12.0)
[2022-04-14 15:16] LABS: Partial Thromboplastin Time 21.2 sec (22.0-30.0)
[2022-04-14] MEDS ORDERED: NITROGLYCERIN SL TABS 0.4 MG TAB SUBLINGUAL PRN (15:16)
[2022-04-14] MEDS: NITROGLYCERIN OINT 1 INCH/GM PACKET TOPICAL SCH (17:49)
[2022-04-14] MEDS ORDERED: FLUoxetine HCL 10 MG CAP PO PRN (19:44)
[2022-04-14] MEDS ORDERED: busPIRone HCl 10 MG TAB PO PRN (20:18)
[2022-04-14] MEDS: TICAGRELOR 90 MG TAB PO SCH (20:23)
[2022-04-14] MEDS: METOPROLOL TARTRATE 25 MG TAB PO SCH (20:35)
[2022-04-14] MEDS ORDERED: ATORVASTATIN 80 MG TAB PO SCH (21:00)
[2022-04-14] MEDS ORDERED: FLUoxetine HCL 10 MG CAP PO SCH (21:00)
[2022-04-14] MEDS ORDERED: busPIRone HCl 10 MG TAB PO SCH (21:00)
[2022-04-15] MEDS: NITROGLYCERIN OINT 1 INCH/GM PACKET TOPICAL SCH ×2 (02:45→06:14)
[2022-04-15] MEDS ORDERED: PANTOPRAZOLE 40 MG TABLET PO SCH (07:30)
[2022-04-15 07:42] VITALS: PULSE 68; RESP 15
[2022-04-15] MEDS ORDERED: REGADENOSON 0.4 MG/5 ML SYRINGE IV PRN (08:28)
[2022-04-15] MEDS ORDERED: CAFFEINE CITRATE 60 MG/3 ML VIAL IV PRN (08:28)
[2022-04-15] MEDS ORDERED: AMINOPHYLLINE 500 MG/20 ML VIAL IV PRN (08:28)
[2022-04-15] MEDS: METOPROLOL TARTRATE 25 MG TAB PO SCH (08:41)
[2022-04-15] MEDS: TICAGRELOR 90 MG TAB PO SCH (08:48)
[2022-04-15] MEDS ORDERED: FLUoxetine HCL 20 MG CAP PO SCH (09:00)
[2022-04-15] MEDS ORDERED: FLUoxetine HCL 10 MG CAP PO SCH (09:00)
[2022-04-15] MEDS ORDERED: ASPIRIN 325 MG TAB PO SCH (09:00)
[2022-04-15] MEDS ORDERED: ASPIRIN 81 MG PO SCH (09:00)
[2022-04-15 09:36] LABS: Chol/HDL Ratio 2.81 Ratio; LDL Cholesterol,Calculated 53.1 mg/dL (0.0-131.0); VLDL Calculation 14.52 mg/dL (5.00-40.00)
--- NOTE | 2022-04-15 10:11 | P.CRDCN ---
History of Present Illness History of present illness: This is a 66 year old female with a past medical history of recent STEMI on 03/2022 s/p PCI to the mid and proximal LAD, ischemic cardiomyopathy with EF 30- 35%, mild mitral regurgitation, hypotension on aldactone last admission. She follows with Dr. Loyd. We are asked to see the patient in consultation for chest pain. Patient states yesterday she had episode of chest heaviness midster nal/left side of her chest, she had generalized fatigue/weakness, states she felt "shaky". She endorses her chest discomfort is similar to her prior GA last month but not as severe. She had some shortness of breath. She denies any associated lightheadedness, dizziness, nausea, vomiting or diaphoresis. She does endorse having diarrhea 4 days prior to episode. Chest discomfort is non- radiating, non-exertional. No specific aggravating or alleviating factors. She is compliant with her medications at home. She states she takes her blood pressure at home and it is not low. She is a non-diabetic, non-smoker. Chest discomfort has resolved since presentation to the hospital. DIAGNOSTICS EKG revealssinus bradycardia, heart rate 56, ST-T wave abnormalities suggest of prior anterior GA. EKG this morning with similar findings, T wave inversions in anterolateral leads. Last Cardiac Catheterization 03/10/2022 revealed coronary artery disease with 100% proximal LAD, 90% mid LAD and 40-50% mid RCA stenosis.Patient underwent successful PCI proximal LAD 03/10/2022 Echocardiogram revealed reduced LV function at 30-35% with apical hypokinesis. No significant valvular abnormalities. Telemetry tracings indicate sinus rhythm heart rate [id number] Chest xray no acute cardiopulmonary process Laboratory reviewed, troponin negative 3, WBC 6.9, hemoglobin 10.9, platelets 380, sodium 134, potassium 4.6, chloride 103,Co2 21, BUN 18, serum crit 0.7, magnesium 1.9, triglycerides 72, cholesterol 105, LDL 53, HDL 37 Current home medications include aspirin 81 mg daily, Brilinta 90 mg twice a day, metoprolol titrate 25 mg twice a day, when necessary nitro, atorvastatin 80 mg nightly REVIEW OF SYSTEMS At the time of my exam: CONSTITUTIONAL: Denies fever or chills. CARDIOVASCULAR: Denies chest pain, shortness of breath, orthopnea, PND or palpitations. RESPIRATORY: Denies cough. GASTROINTESTINAL: Denies abdominal pain, diarrhea, constipation, nausea or vomiting. MUSCULOSKELETAL: Denies myalgias. NEUROLOGIC: Denies numbness, tingling, headache or weakness. ENDOCRINE: Denies fatigue, weight change, polydipsia or polyurina. GENITOURINARY: Denies burning, hematuria or urgency with micturation. HEMATOLOGIC: Denies history of anemia or bleeding. PHYSICAL EXAMINATION Blood pressure 116/72, heart rate 60, afebrile, saturations 90% room air CONSTITUTIONAL: No apparent distress. HEENT: Head is normocephalic. Pupils are equal, round. Sclerae anicteric. Mucous membranes of the mouth are moist. No JVD. No carotid bruit. CHEST EXAMINATION: Lungs are clear to auscultation. No chest wall tenderness is noted on palpation or with deep breathing. HEART EXAMINATION: Regular rate and rhythm. S1, S2 heard. No murmurs, gallops or rub. ABDOMEN: Soft, nontender. Positive bowel sounds. EXTREMITIES: 2+ peripheral pulses, no lower extremity edema and no calf tenderness. SKIN:warm, dry NEUROLOGIC EXAMINATION: Patient is awake, alert and oriented x3. ASSESSMENT Chest pain, atypical, acute coronary syndrome has been ruled out Coronary artery disease s/p STEMI on 03/10/2022 s/p PCI to proximal LAD Ischemic cardiomyopathy with EF 30-35% Hypotension on aldactone last admission PLAN An acute coronary event has been ruled out with no EKG evidence of ischemia and negative cardiac enzymes. Perform Lexiscan stress test to assess for stress induced cardiac ischemia. If abnormal will consider coronary angiography. If stress test is negative for reversible ischemia, no further inpatient workup from a cardiology perspective and recommend close follow up outpatient with Dr. Loyd. Thank you kindly for this consultation. Nurse practitioner note has been reviewed by physician. Signing provider agrees with the documented findings, assessment, and plan of care. Past Medical History Past Medical History: Coronary Artery Disease (CAD), GERD/Reflux, Hyper lipidemia, Myocardial Infarction ([place]) Last Myocardial Infarction Date:: 03/10/22 History of Any Multi-Drug Resistant Organisms: None Reported Past Surgical History: Heart Catheterization With Stent, Tubal Ligation Past Anesthesia/Blood Transfusion Reactions: No Reported Reaction Date of Last Stent Placement:: 03/10/2022 Smoking Status: Former smoker - Past Family History Mother Family Medical History: CVA/TIA Additional Family Medical History / Comment(s): TIAs, stomach issues Father Family Medical History: Cancer, Diabetes Mellitus Additional Family Medical History / Comment(s): Heart problems Medications and Allergies Home Medications Medication Instructions Recorded Confirmed Type FLUoxetine HCL 40 mg PO DAILY 03/10/22 04/14/22 History Omeprazole 20 mg PO DAILY 03/10/22 04/14/22 History Aspirin 81 mg PO DAILY 90 Days #90 tab 03/12/22 04/14/22 Rx Atorvastatin [Lipitor] 80 mg PO HS 90 Days #90 tab 03/12/22 04/14/22 Rx Nitroglycerin Sl Tabs [Nitrostat] 0.4 mg SUBLINGUAL Q5M PRN #25 tab 03/12/22 04/14/22 Rx Ticagrelor [Brilinta] 90 mg PO BID 90 Days #180 tab 03/12/22 04/14/22 Rx Acetaminophen Tab [Tylenol] 650 mg PO Q4HR PRN tab 03/14/22 04/14/22 Rx Metoprolol Tartrate [Lopressor] 25 mg PO BID 30 Days #60 tab 03/14/22 04/14/22 Rx busPIRone HCl [Buspar] 10 mg PO DAILY PRN 04/14/22 04/14/22 History busPIRone HCl [Buspar] 10 mg PO HS 04/14/22 04/14/22 History Allergies Allergy/AdvReac Type Severity Reaction Status Date / Time Penicillins Allergy Rash/Hives Verified 04/14/22 14:07 Physical Exam Vitals: Vital Signs Temp Pulse Pulse Pulse Resp BP BP 04/15/22 07:40 98.3 F 68 15 116/72 04/15/22 06:20 98 F 62 14 105/65 04/15/22 02:00 16 04/15/22 01:36 98.3 F 66 16 110/69 04/14/22 19:17 98.2 F 57 L 16 103/64 04/14/22 18:10 97.7 F 59 L 16 108/65 04/14/22 17:21 97.4 F L 64 18 96/59 04/14/22 16:43 61 18 92/51 04/14/22 15:18 56 L 18 103/60 04/14/22 14:37 61 18 103/68 04/14/22 13:10 18 04/14/22 12:54 98.6 F 56 L 20 109/62 Pulse Ox 04/15/22 07:40 99 04/15/22 06:20 96 04/15/22 02:00 04/15/22 01:36 98 04/14/22 19:17 97 04/14/22 18:10 97 04/14/22 17:21 98 04/14/22 16:43 94 L 04/14/22 15:18 98 04/14/22 14:37 96 04/14/22 13:10 04/14/22 12:54 97 Intake and Output 04/14/22 04/15/22 04/15/22 22:59 06:59 14:59 Intake Total 100 150 Balance 100 150 Intake: Oral 100 150 Other: # Voids 1 1 Weight 65.771 kg Results 04/14/22 13:10 04/14/22 13:10 Cardiac Enzymes 04/14/22 04/14/22 04/14/22 Range/Units 13:10 13:10 16:10 AST 27 (14-36) U/L Troponin I <0.012 <0.012 (0.000-0.034) ng/mL 04/14/22 Range/Units 19:14 AST (14-36) U/L Troponin I <0.012 (0.000-0.034) ng/mL Coagulation 04/14/22 Range/Units 14:46 PT 10.4 (9.0-12.0) sec APTT 21.2 L (22.0-30.0) sec CBC 04/14/22 Range/Units 13:10 WBC 6.9 (3.8-10.6) k/uL RBC 4.02 (3.80-5.40) m/uL Hgb 10.9 L (11.4-16.0) gm/dL Hct 33.7 L (34.0-46.0) % Plt Count 380 (150-450) k/uL Comprehensive Metabolic Panel 04/14/22 Range/Units 13:10 Sodium 134 L (137-145) mmol/L Potassium 4.6 (3.5-5.1) mmol/L Chloride 103 (98-107) mmol/L Carbon Dioxide 21 L (22-30) mmol/L BUN 18 H (7-17) mg/dL Creatinine 0.77 (0.52-1.04) mg/dL Glucose 116 H (74-99) mg/dL Calcium 8.6 (8.4-10.2) mg/dL AST 27 (14-36) U/L ALT 11 (4-34) U/L Alkaline Phosphatase 93 (38-126) U/L Total Protein 5.9 L (6.3-8.2) g/dL Albumin 3.2 L (3.5-5.0) g/dL Current Medications Generic Name Dose Route Start Last Admin Trade Name Freq PRN Reason Stop Dose Admin Aspirin 81 mg 04/15/22 09:00 Aspirin 81 Mg PO DAILY MANUELA Atorvastatin Calcium 80 mg 04/14/22 21:00 04/14/22 20:23 Atorvastatin 80 Mg Tab PO 80 mg HS MANUELA Administration Buspirone HCl 10 mg 04/14/22 21:00 04/14/22 20:34 Buspirone Hcl 10 Mg Tab PO 10 mg HS MANUELA Administration Buspirone HCl 10 mg 04/14/22 20:18 Buspirone Hcl 10 Mg Tab PO DAILY PRN Anxiety Fluoxetine HCl 40 mg 04/15/22 09:00 Fluoxetine Hcl 20 Mg Cap PO DAILY MANUELA Metoprolol Tartrate 25 mg 04/14/22 21:00 04/14/22 20:35 Metoprolol Tartrate 25 Mg Tab PO Not Given BID MANUELA Nitroglycerin 0.4 mg 04/14/22 15:16 Nitroglycerin Sl Tabs 0.4 Mg Tab SUBLINGUAL Q5M PRN Chest Pain Pantoprazole Sodium 40 mg 04/15/22 07:30 04/15/22 06:28 Pantoprazole 40 Mg Tablet PO 40 mg AC-BID MANUELA Administration Ticagrelor 90 mg 04/14/22 21:00 04/14/22 20:23 Ticagrelor 90 Mg Tab PO 90 mg BID MANUELA Administration Intake and Output 04/14/22 04/15/22 04/15/22 22:59 06:59 14:59 Intake Total 100 150 Balance 100 150 Intake: Oral 100 150 Other: # Voids 1 1 Weight 65.771 kg 04/14/22 13:10 04/14/22 13:10
--- NOTE | 2022-04-15 11:32 | CA ---
Lexiscan Nuclear Stress Test Report Name: La Matthews Exam Date: 04/15/2022 10:27 Exam Location: [place] Stress Ht (in): 66 Wt (lb): 145 BSA: 1.74 Ordering Phys: Veena Auguste Referring Phys: MAYA, Technologist: Javier Tena Age: 66 Gender: F : 1955 Procedure CPT: Indications: Reflex order-Stress test ICD-10 Codes: Patient History: CP, DIFFICULTY IN BREATHING, ELEVATED CHOLESTEROL LEVELS, FAMILY HX OF HEART DISEASE, PRIOR TX, CARDIAC CATHERIZATION WITH STENTING X 2. Medications: Meds past 24 hrs: Pretest Chest Pain: STRESS TEST Lexiscan Protocol Exercise Duration (min:sec): 02:[address] Depressions (mm): Angina Score: Jones Score: Resting HR (bpm): 56 Peak HR (bpm): 107 Resting BP (mmHg): 118 / 69 Peak BP (mmHg): 131 / 80 MPHR: 152 Target HR: 129 % MPHR: 70 METS: 1.0 Total Dose: Peak Dose: Atropine: Double Product: 33881 BP Response: Normal Stress Termination: Stress Symptoms: Stress Summary: ECG ANALYSIS Resting ECG: Sinus mechanism with T-wave inversion in V1 and V2 Stress ECG: No evidence of ST segment changes CONCLUSIONS 1. Nondiagnostic a electrocardiographic stress test 2. Nuclear images will be reported separately. Dr. Xi Esqueda MD (Electronically Signed) Final Date: 15 April 2022 11:31
[2022-04-15 14:13] VITALS: BP 103/65; TEMP 98.2
--- NOTE | 2022-04-15 15:20 | NM ---
EXAMINATION TYPE: NM stress lexiscan cardiolite DATE OF EXAM: 04/15/2022 COMPARISON: NONE HISTORY: Chest pain TECHNIQUE: After the intravenous administration of 10.4 mCi Tc 99m Sestamibi - Cardiolite resting SP ECT images acquired 75 minutes post injection. The patient received 0.4mg Lexiscan, 24.7 mCi Tc 99m Sestamibi - Stress images obtained [address] injection FINDINGS: Review of stress and rest SPECT images demonstrates some decreased uptake along the anteroapical sept al left ventricle on stress and rest images with some possible decreased uptake on stress as compared to rest images at the apex, decreased uptake is present along the septum on stress as compared to re st images towards the base of the heart. Gated analysis shows normal wall motion with an estimated l eft ventricular ejection fraction of 57 %. IMPRESSION: Findings suggest prior infarct with some jorge-infarct left ventricular myocardial ischemia as well as some pharmacologically induced left ventricular myocardial ischemia
--- NOTE | 2022-04-16 13:45 | P.HPIM ---
History of Present Illness H&P Date: 04/15/22 Chief Complaint: Chest pain History and Physical and Discharge Summary: This is 66-year-old female with past medical history of recent STEMI on 2021 with stents to the LAD 2, ischemic cardiomyopathy, EF 30-35%, gastroesophageal reflux disease, hyperlipidemia, anxiety, former nicotine dependence, occasional marijuana use and multiple other medical uses presented to the ER with complaints of nonradiating mild left chest pressure accompanied by shortness of breath, diarrhea, fatigue after showering yesterday. Denies nausea or vomiting. Denies abdominal pain. Denies lightheadedness dizziness or focal deficits. Reports family history of [place] as well, her father. EKG reporting sinus bradycardia, T-wave inversions anterior lateral leads. Troponins negative 3. Electrolytes, renal function within normal limits. Afebrile, normal WBC, hem oglobin 10.9, platelets 380. Chest x-ray reporting no acute process, no significant change from prior. Evaluated by cardiology, scheduled for Lexiscan stress test. Review of Systems ROS Statement: Those systems with pertinent positive or pertinent negative responses have been documented in the HPI. ROS Other: All systems not noted in ROS Statement are negative. Past Medical History Past Medical History: Coronary Artery Disease (CAD), GERD/Reflux, Hyperlipidemia, Myocardial Infarction ([place]) Last Myocardial Infarction Date:: 03/10/22 History of Any Multi-Drug Resistant Organisms: None Reported Past Surgical History: Heart Catheterization With Stent, Tubal Ligation Past Anesthesia/Blood Transfusion Reactions: No Reported Reaction Date of Last Stent Placement:: 03/10/2022 Smoking Status: Former smoker - Past Family History Mother Family Medical History: CVA/TIA Additional Family Medical History / Comment(s): TIAs, stomach issues Father Family Medical History: Cancer, Diabetes Mellitus Additional Family Medical History / Comment(s): Heart problems Medications and Allergies Home Medications Medication Instructions Recorded Confirmed Type FLUoxetine HCL 40 mg PO DAILY 03/10/22 04/14/22 History Omeprazole 20 mg PO DAILY 03/10/22 04/14/22 History Aspirin 81 mg PO DAILY 90 Days #90 tab 03/12/22 04/14/22 Rx Atorvastatin [Lipitor] 80 mg PO HS 90 Days #90 tab 03/12/22 04/14/22 Rx Nitroglycerin Sl Tabs [Nitrostat] 0.4 mg SUBLINGUAL Q5M PRN #25 tab 03/12/22 04/14/22 Rx Ticagrelor [Brilinta] 90 mg PO BID 90 Days #180 tab 03/12/22 04/14/22 Rx Acetaminophen Tab [Tylenol] 650 mg PO Q4HR PRN tab 03/14/22 04/14/22 Rx Metoprolol Tartrate [Lopressor] 25 mg PO BID 30 Days #60 tab 03/14/22 04/14/22 Rx busPIRone HCl [Buspar] 10 mg PO DAILY PRN 04/14/22 04/14/22 History busPIRone HCl [Buspar] 10 mg PO HS 04/14/22 04/14/22 History Allergies Allergy/AdvReac Type Severity Reaction Status Date / Time Penicillins Allergy Rash/Hives Verified 04/14/22 14:07 Physical Exam Vitals: Vital Signs Temp Pulse Pulse Pulse Resp BP BP 04/15/22 07:40 98.3 F 68 15 116/72 04/15/22 06:20 98 F 62 14 105/65 04/15/22 02:00 16 04/15/22 01:36 98.3 F 66 16 110/69 04/14/22 19:17 98.2 F 57 L 16 103/64 04/14/22 18:10 97.7 F 59 L 16 108/65 04/14/22 17:21 97.4 F L 64 18 96/59 04/14/22 16:43 61 18 92/51 04/14/22 15:18 56 L 18 103/60 04/14/22 14:37 61 18 103/68 04/14/22 13:10 18 04/14/22 12:54 98.6 F 56 L 20 109/62 Pulse Ox 04/15/22 07:40 99 04/15/22 06:20 96 04/15/22 02:00 04/15/22 01:36 98 04/14/22 19:17 97 04/14/22 18:10 97 04/14/22 17:21 98 04/14/22 16:43 94 L 04/14/22 15:18 98 04/14/22 14:37 96 04/14/22 13:10 04/14/22 12:54 97 Intake and Output 04/14/22 04/15/22 04/15/22 22:59 06:59 14:59 Intake Total 100 150 Balance 100 150 Intake: Oral 100 150 Other: # Voids 1 1 Weight 65.771 kg Gen: Sitting up in bed, awake and alert x 3. well developed and well nourished HEENT: Head is atraumatic, normocephalic. Pupils equal, round. Sclerae is anicteric. NECK: Supple. No JVD. No lymphadenopathy. No thyromegaly. LUNGS: diminished breath sounds bilaterally with no wheezing or rhonchi. HEART: Regular rate and rhythm. No murmur. ABDOMEN: Soft.Bowel sounds are present. No masses. No tenderness. EXTREMITIES: No pedal edema. No calf tenderness. NEUROLOGICAL: Patient is awake, alert and oriented x3. Results CBC & Chem 7: 04/14/22 13:10 04/14/22 13:10 Labs: Abnormal Lab Results - Last 24 Hours (Table) 04/14/22 04/14/22 04/14/22 Range/Units 13:10 13:10 14:46 Hgb 10.9 L (11.4-16.0) gm/dL Hct 33.7 L (34.0-46.0) % Lymphocytes # 0.8 L (1.0-4.8) k/uL APTT 21.2 L (22.0-30.0) sec Sodium 134 L (137-145) mmol/L Carbon Dioxide 21 L (22-30) mmol/L BUN 18 H (7-17) mg/dL Glucose 116 H (74-99) mg/dL Total Protein 5.9 L (6.3-8.2) g/dL Albumin 3.2 L (3.5-5.0) g/dL HDL Cholesterol (40.00-60.00) mg/dL 04/15/22 Range/Units 04:00 Hgb (11.4-16.0) gm/dL Hct (34.0-46.0) % Lymphocytes # (1.0-4.8) k/uL APTT (22.0-30.0) sec Sodium (137-145) mmol/L Carbon Dioxide (22-30) mmol/L BUN (7-17) mg/dL Glucose (74-99) mg/dL Total Protein (6.3-8.2) g/dL Albumin (3.5-5.0) g/dL HDL Cholesterol 37.40 L (40.00-60.00) mg/dL Thrombosis Risk Factor Assmnt - Choose All That Apply Any of the Below Risk Factors Present?: Yes Each Risk Factor Represents 2 Points: Age 61-74 years Other congenital or acquired thrombophilia - If yes, enter type in comment: No Thrombosis Risk Factor Assessment Total Risk Factor Score: 2 Thrombosis Risk Factor Assessment Level: Low Risk Assessment and Plan Assessment: Acute chest pain, atypical with acute coronary syndrome ruled out as per cardiology Recent STEMI status post stent placement 2 to the LAD, Ischemic cardiomyopathy, EF 30-35% Hypotension on Aldactone on previous admission Hyperlipidemia Gastroesophageal reflux disease Anxiety Depression Prior nicotine use Occasional marijuana use Plan: Continue on current medication regime ,monitoring and symptomatic treatment. Evaluated by cardiology and has been scheduled for Lexiscan stress test. Patient will be discharged home today in a stable condition with guarded prognosis pending stress test results, final DC recommendations and clearance per cardiology. Discharge Medication List FLUoxetine HCL 40 mg PO DAILY 03/10/22 [History] Omeprazole 20 mg PO DAILY 03/10/22 [History] Aspirin 81 mg PO DAILY 90 Days #90 tab 03/12/22 [Rx] Atorvastatin [Lipitor] 80 mg PO HS 90 Days #90 tab 03/12/22 [Rx] Nitroglycerin Sl Tabs [Nitrostat] 0.4 mg SUBLINGUAL Q5M PRN #25 tab 03/12/22 [Rx] Ticagrelor [Brilinta] 90 mg PO BID 90 Days #180 tab 03/12/22 [Rx] Acetaminophen Tab [Tylenol] 650 mg PO Q4HR PRN tab 03/14/22 [Rx] Metoprolol Tartrate [Lopressor] 25 mg PO BID 30 Days #60 tab 03/14/22 [Rx] busPIRone HCl [Buspar] 10 mg PO DAILY PRN 04/14/22 [History] busPIRone HCl [Buspar] 10 mg PO HS 04/14/22 [History] The impression and plan of care has been dictated as directed. : I performed a history and examination of this patient, discussed the same with the dictator. I agree with the dictator's note ,documented as a scribe. Any additional findings or plans will be noted.
== END 2022-04-15 17:00 | disposition home or self-care (01) ==
LOC: EC 12:36 → 6NMEDSUR 15:17
PROVIDERS: ADMIT Family Medicine; ATTEND Family Medicine
DX: R07.89 Other chest pain (principal); I25.5 Ischemic cardiomyopathy; I25.10 Atherosclerotic heart disease of native coronary artery without angina pectoris; E78.5 Hyperlipidemia, unspecified; I25.2 Old myocardial infarction; K21.9 Gastro-esophageal reflux disease without esophagitis; R19.7 Diarrhea, unspecified; R00.1 Bradycardia, unspecified; F32.A Depression, unspecified; F41.9 Anxiety disorder, unspecified; F17.200 Nicotine dependence, unspecified, uncomplicated; Z79.82 Long term (current) use of aspirin; Z79.02 Long term (current) use of antithrombotics/antiplatelets; Z79.899 Other long term (current) drug therapy; Z88.0 Allergy status to penicillin; Z95.5 Presence of coronary angioplasty implant and graft; Z98.51 Tubal ligation status; Z82.3 Family history of stroke; Z83.3 Family history of diabetes mellitus; Z83.79 Family history of other diseases of the digestive system; Z82.49 Family history of ischemic heart disease and other diseases of the circulatory system; Z80.9 Family history of malignant neoplasm, unspecified
CPT/HCPCS: 99285; 36415; 93005; 93017; 80061; 80053; 83735; 84484; 85025; 85610; 85730; 71046; 78452; G0378 ×2; A9500; J2785

== ENCOUNTER 2022-05-26 06:41 | Observation (INO) | payer MEDICARE ==
[2022-05-26 07:15] LABS: Basophils % (A) 0 %; Eosinophils # (A) 0.1 k/uL (0-0.7); Eosinophils % (A) 1 %; HCT 36.8 % (34.0-46.0); HGB 11.4 gm/dL (11.4-16.0); Lymphocytes # (A) 1.3 k/uL (1.0-4.8); Lymphocytes % (A) 8 %; MCH 25.7 pg (25.0-35.0); MCHC 30.9 g/dL (31.0-37.0); MCV 83.2 fL (80.0-100.0); Mean Platelet Volume 7.4; Monocytes # (A) 0.6 k/uL (0-1.0); Monocytes % (A) 4 %; Neutrophils # (A) 13.6 k/uL (1.3-7.7); Neutrophils % (A) 86 %; Platelet Count 480 k/uL (150-450); RBC 4.42 m/uL (3.80-5.40); RDW 15.2 % (11.5-15.5); WBC 15.8 k/uL (3.8-10.6)
[2022-05-26 07:26] LABS: Albumin 3.8 g/dL (3.5-5.0); Calcium 9.2 mg/dL (8.4-10.2); Magnesium 1.9 mg/dL (1.6-2.3); Potassium 3.9 mmol/L (3.5-5.1); Total Protein 6.6 g/dL (6.3-8.2)
--- NOTE | 2022-05-26 07:33 | XR ---
EXAMINATION TYPE: XR chest 1V portable DATE OF EXAM: 05/26/2022 7:28 AM COMPARISON: Chest radiographs from 04/14/2022 TECHNIQUE: XR chest 1V portable Portable AP radiograph of the chest. CLINICAL INDICATION:Female, 66 years old with history of chest pain; FINDINGS: Lungs/Pleura: There is no evidence of pleural effusion, focal consolidation, or pneumothorax. Pulmonary vascularity: Unremarkable. Heart/mediastinum: Cardiomediastinal silhouette is unremarkable. Musculoskeletal: No acute osseous pathology. IMPRESSION: No acute cardiopulmonary disease/process.
[2022-05-26 07:39] LABS: INR 0.9 (<1.2); Prothrombin Time 10.3 sec (9.0-12.0)
[2022-05-26 08:01] LABS: Partial Thromboplastin Time 21.5 sec (22.0-30.0)
--- NOTE | 2022-05-26 08:06 | ED ---
Chest Pain HPI - General Chief Complaint: Chest Pain Stated Complaint: Chest pain Time Seen by Provider: 05/26/22 07:10 Source: patient Mode of arrival: ambulatory Limitations: no limitations - History of Present Illness Initial Comments: 66-year-old female with past medical history of coronary artery disease, hyperlipidemia who presents to emergency room with reported chest pain. Patient had a heart attack back in March where she received 2 stents. She follows with Dr. Loyd. Presents today with chest pain that has been worsening over the past week and a half. She took a fall and landed on her left chest wall therefore she was unsure if it was related to her injury versus cardiac in nature. States that her pain has not been improving. Awoke this morning and felt shaky, short of breath. Upon hospital arrival the patient had a blood pressure of 64/45. Recently had her Toprol dose changed to 12.5 due to hypotension. She has been taking her Brillinta as directed without any missed doses. This morning she took one nitro and when she did not have improvement in her symptoms, she should proceeded to the emergency department. Upon review the patient's chart she had a stress test performed on April 15 which demonstrated prior infarct as well as some pharmacologically induced left ventricular myocardial ischemia. Chest pain currently is 3 out of 10. No ripping or tearing sedation to her back. No other alleviating, precipitating or modifying factors - Related Data Home Medications Medication Instructions Recorded Confirmed FLUoxetine HCL 40 mg PO DAILY 03/10/22 05/26/22 Omeprazole 20 mg PO DAILY 03/10/22 05/26/22 Metoprolol Tartrate [Lopressor] 12.5 mg PO BID 05/26/22 05/26/22 busPIRone HCL 15 mg PO HS 05/26/22 05/26/22 Previous Rx's Medication Instructions Recorded Aspirin 81 mg PO DAILY 90 Days #90 tab 03/12/22 Atorvastatin [Lipitor] 80 mg PO HS 90 Days #90 tab 03/12/22 Nitroglycerin Sl Tabs [Nitrostat] 0.4 mg SUBLINGUAL Q5M PRN #25 tab 03/12/22 Ticagrelor [Brilinta] 90 mg PO BID 90 Days #180 tab 03/12/22 Acetaminophen Tab [Tylenol] 650 mg PO Q4HR PRN tab 03/14/22 Allergies Allergy/AdvReac Type Severity Reaction Status Date / Time Penicillins Allergy Rash/Hives Verified 05/26/22 08:02 Review of Systems ROS Statement: Those systems with pertinent positive or pertinent negative responses have been documented in the HPI. ROS Other: All systems not noted in ROS Statement are negative. EKG Findings - EKG Comments: EKG Findings:: EKG done at 650 demonstrates sinus rhythm with a rate of 76. NV interval 142. QRS 79. QTC 410. Inverted T waves V2 V3. No acute ST segment elevation. Repeat EKG done at 657 continues to demonstrate sinus rhythm with ST depression V2 V3. No acute ST segment elevation. Rate of 67. NV interval 152. QRS 90. QTC of 426. Past Medical History Past Medical History: Coronary Artery Disease (CAD), GERD/Reflux, Hyperlipidemia, Myocardial Infarction ([place]) Last Myocardial Infarction Date:: 03/10/22 History of Any Multi-Drug Resistant Organisms: None Reported Past Surgical History: Heart Catheterization With Stent, Tubal Ligation Past Anesthesia/Blood Transfusion Reactions: No Reported Reaction Date of Last Stent Placement:: 03/10/2022 Smoking Status: Former smoker - Past Family History Mother Family Medical History: CVA/TIA Additional Family Medical History / Comment(s): TIAs, stomach issues Father Family Medical History: Cancer, Diabetes Mellitus Additional Family Medical History / Comment(s): Heart problems General Exam Limitations: no limitations General appearance: alert, in no apparent distress Head exam: Present: atraumatic, normocephalic, normal inspection Eye exam: Present: normal appearance, PERRL, EOMI. Absent: scleral icterus, conjunctival injection, periorbital swelling ENT exam: Present: normal exam, mucous membranes moist Neck exam: Present: normal inspection. Absent: tenderness, meningismus, lymphadenopathy Respiratory exam: Present: normal lung sounds bilaterally. Absent: respiratory distress, wheezes, rales, rhonchi, stridor Cardiovascular Exam: Present: regular rate, normal rhythm, normal heart sounds. Absent: systolic murmur, diastolic murmur, rubs, gallop, clicks GI/Abdominal exam: Present: soft, normal bowel sounds. Absent: distended, tenderness, guarding, rebound, rigid Extremities exam: Present: normal inspection, full ROM, normal capillary refill. Absent: tenderness, pedal edema, joint swelling, calf tenderness Back exam: Present: normal inspection Neurological exam: Present: alert, oriented X3, CN II-XII intact Psychiatric exam: Present: normal affect, normal mood Skin exam: Present: warm, dry, intact, normal color. Absent: rash Course Vital Signs 05/26/22 05/26/22 05/26/22 06:50 06:53 07:31 Temperature 98.3 F Pulse Rate 84 62 Pulse Rate [ 80 Apical] Respiratory 16 16 Rate Blood Pressure 64/45 112/66 Blood Pressure [Right Arm] O2 Sat by Pulse 98 96 Oximetry 05/26/22 05/26/22 05/26/22 08:20 09:54 11:18 Temperature 98.2 F 97.7 F Pulse Rate 75 67 Pulse Rate [ 67 Apical] Respiratory 16 16 Rate Blood Pressure 105/68 110/64 Blood Pressure 115/56 [Right Arm] O2 Sat by Pulse 96 99 97 Oximetry Chest Pain MDM - MDM Upon arrival patient was placed into room 7. Thorough history and physical exam was performed. Patient does have remarkably low blood pressure upon presentation and therefore IV was accessed and the patient was given a liter bolus. She did have improvement in her blood pressure. Labs were conducted and reviewed. Troponin is 0.017. Chest x-ray demonstrates no acute process. Due to the patient's symptoms, hypotension with recent normal stress test I will admit for cardiology consultation. Patient agreeable to this. Spoke with Dr. Alexis who was agreeable to admission Disposition Clinical Impression: Chest pain Disposition: ADMITTED IP TO THIS HOSP Condition: Stable Is patient prescribed a controlled substance at d/c from ED?: No Time of Disposition: 08:18 Decision to Admit Reason: Admit from EC Decision Date: 05/26/22 Decision Time: 08:18
[2022-05-26] MEDS ORDERED: NALOXONE 0.4 MG/ML 1 ML VIAL IV PRN (08:18)
[2022-05-26] MEDS: SODIUM CHLORIDE 0.9% 1,000 ML IV SCH ×2 (09:58→22:34)
[2022-05-26] MEDS ORDERED: NITROGLYCERIN SL TABS 0.4 MG TAB SUBLINGUAL PRN (11:55)
[2022-05-26] MEDS ORDERED: ALPRAZolam 0.25 MG TAB PO PRN (11:55)
[2022-05-26] MEDS ORDERED: ALPRAZolam 0.5 MG TAB PO PRN (11:55)
--- NOTE | 2022-05-26 11:55 | P.CRDCN ---
History of Present Illness Consult date: 05/26/22 History of present illness: History of Present Illness: The patient is a 66-year-old female known history of hyperlipidemia, hypertension and CAD who presented with an acute episode of dyspnea, chest discomfort and diaphoresis that occurred at night. The patient has a known history of CAD, followed by Dr. Loyd, presented to March with STEMI and underwent cardiac catheterization and was found to have significant obstructive disease involving the proximal LAD and received a stent in the proximal LAD 3.0 x 15 and 2.75 x 8 in the midsegment. She was readmitted to the hospital in April 14 with chest discomfort and at that time had no acute troponin changes, or MPI showed prior myocardial infarction in the anteroapical septal wall with some jorge-infarct ischemia. Ejection fraction was reported to be 57% although on her echocardiogram done in March she had moderate severe impairment in the systolic function. She was treated medically after admission in April and has done reasonably well, feeling fatigued and dyspneic but no chest discomfort. She has been attending rehab. She is pain-free at the time of my evaluation. She denies any dizziness or palpitation, no PND, orthopnea or peripheral edema. She has been in sinus mechanism Medications: Aspirin, Brilinta 90 mg twice a day, metoprolol 12-1/2 mg twice a day, Lipitor 80 mg daily, fluoxetine, buspirone Review of Systems: Respiratory: She has dyspnea on exertion but no recent wheezing, cough GI: No nausea or vomiting . No history of peptic ulcer disease. No recent GI bleed. : No hematuria or dysuria. Nervous System: No stroke or seizure. Physical Examination: 66-year-old female alert, oriented in no acute distress,Blood pressure 110/60, Heart rate 60 Head: Normocephalic. Eyes: Sclerae nonicteric. Neck: Good carotid upstroke, no bruit, no jugular venous distention. Lungs: Clear to auscultation. Heart: Regular rate and rhythm, S1-S2, no S3, no rub. Systolic ejection murmur. Abdomen: Soft nontender, positive bowel sounds no organomegaly. Extremities: No edema, intact distal pulses. Labs: BUN 14, creatinine 0.85, hemoglobin 11.4, troponin less than 0.012 0.017. NT proBNP 756, chest x-ray no acute infiltrate EKG: Sinus mechanism with T-wave inversion anteriorly no acute new changes Impression: 1. Symptoms of chest discomfort of unclear etiology in a patient with known history of CAD 2. Status post LAD stenting in March in the setting of her myocardial infarction 3. Prior history of cardiomyopathy 4. History of hypertension Plan: 1. resume home medications 2. Start heparin 3. Obtain an echocardiogram with Doppler 4. Proceed with cardiac catheterization to be done tomorrow by Dr. Loyd, I discussed with the patient and her family the risks and the complications 5. Thank you for this consult we will follow with you. Past Medical History Past Medical History: Coronary Artery Disease (CAD), GERD/Reflux, Hyperlipidemia, Myocardial Infarction ([place]) Additional Past Medical History / Comment(s): Recent hypotension, ischemic cardiomyopathy Last Myocardial Infarction Date:: 03/10/22 History of Any Multi-Drug Resistant Organisms: None Reported Past Surgical History: Heart Catheterization With Stent, Tubal Ligation Past Anesthesia/Blood Transfusion Reactions: No Reported Reaction Additional Past Anesthesia/Blood Transfusion Reaction / Comment(s): Pt has motion sickness Date of Last Stent Placement:: 03/10/2022 Smoking Status: Former smoker - Past Family History Mother Family Medical History: CVA/TIA Additional Family Medical History / Comment(s): TIAs, stomach issues Father Family Medical History: Cancer, Diabetes Mellitus Additional Family Medical History / Comment(s): Heart problems Medications and Allergies Home Medications Medication Instructions Recorded Confirmed Type FLUoxetine HCL 40 mg PO DAILY 03/10/22 05/26/22 History Omeprazole 20 mg PO DAILY 03/10/22 05/26/22 History Aspirin 81 mg PO DAILY 90 Days #90 tab 03/12/22 05/26/22 Rx Atorvastatin [Lipitor] 80 mg PO HS 90 Days #90 tab 03/12/22 05/26/22 Rx Nitroglycerin Sl Tabs [Nitrostat] 0.4 mg SUBLINGUAL Q5M PRN #25 tab 03/12/22 05/26/22 Rx Ticagrelor [Brilinta] 90 mg PO BID 90 Days #180 tab 03/12/22 05/26/22 Rx Acetaminophen Tab [Tylenol] 650 mg PO Q4HR PRN tab 03/14/22 05/26/22 Rx Metoprolol Tartrate [Lopressor] 12.5 mg PO BID 05/26/22 05/26/22 History busPIRone HCL 15 mg PO HS 05/26/22 05/26/22 History Allergies Allergy/AdvReac Type Severity Reaction Status Date / Time Penicillins Allergy Rash/Hives Verified 05/26/22 08:02 Physical Exam Vitals: Vital Signs Temp Pulse Pulse Resp BP Pulse Ox 05/26/22 11:18 97.7 F 67 16 110/64 97 05/26/22 09:54 75 16 105/68 99 05/26/22 07:31 62 16 112/66 96 05/26/22 06:53 80 05/26/22 06:50 98.3 F 84 16 64/45 98 Intake and Output 05/25/22 05/26/22 05/26/22 22:59 06:59 14:59 Other: Weight 65.771 kg 65.771 kg Results 05/26/22 07:00 05/26/22 07:00 Cardiac Enzymes 05/26/22 05/26/22 05/26/22 Range/Units 07:00 07:00 09:43 AST 20 (14-36) U/L Troponin I 0.017 <0.012 (0.000-0.034) ng/mL Coagulation 05/26/22 Range/Units 07:00 PT 10.3 (9.0-12.0) sec APTT 21.5 L (22.0-30.0) sec CBC 05/26/22 Range/Units 07:00 WBC 15.8 H (3.8-10.6) k/uL RBC 4.42 (3.80-5.40) m/uL Hgb 11.4 (11.4-16.0) gm/dL Hct 36.8 (34.0-46.0) % Plt Count 480 H (150-450) k/uL Comprehensive Metabolic Panel 05/26/22 Range/Units 07:00 Sodium 133 L (137-145) mmol/L Potassium 3.9 (3.5-5.1) mmol/L Chloride 100 (98-107) mmol/L Carbon Dioxide 22 (22-30) mmol/L BUN 14 (7-17) mg/dL Creatinine 0.85 (0.52-1.04) mg/dL Glucose 115 H (74-99) mg/dL Calcium 9.2 (8.4-10.2) mg/dL AST 20 (14-36) U/L ALT 10 (4-34) U/L Alkaline Phosphatase 129 H (38-126) U/L Total Protein 6.6 (6.3-8.2) g/dL Albumin 3.8 (3.5-5.0) g/dL Current Medications Generic Name Dose Route Start Last Admin Trade Name Freq PRN Reason Stop Dose Admin Sodium Chloride 1,000 mls @ 75 mls/hr 05/26/22 08:30 05/26/22 09:58 Saline 0.9% IV 75 mls/hr .[id number] MANUELA Administration Naloxone HCl 0.2 mg 05/26/22 08:18 Naloxone 0.4 Mg/Ml 1 Ml Vial IV Q2M PRN Opioid Reversal Intake and Output 05/25/22 05/26/22 05/26/22 22:59 06:59 14:59 Other: Weight 65.771 kg 65.771 kg Patient Weight 05/27/22 06:59 Weight 65.771 kg 05/26/22 07:00 05/26/22 07:00
[2022-05-26] MEDS ORDERED: HEPARIN SODIUM 1,000 UN/ML (10ML VL) IV ONE (11:56)
[2022-05-26] MEDS: HEPARIN SOD,PORK IN 0.45% NACL 25,000 UNIT in 0.45% NACL 1 250ML.BAG IV SCH (12:42)
[2022-05-26 12:44] LABS: Basophils % (A) 0 %; Eosinophils % (A) 0 %; HCT 34.4 % (34.0-46.0); HGB 10.5 gm/dL (11.4-16.0); Hypochromasia Slight; Lymphocytes # (A) 0.9 k/uL (1.0-4.8); Lymphocytes % (A) 7 %; MCH 25.9 pg (25.0-35.0); MCHC 30.5 g/dL (31.0-37.0); MCV 85.1 fL (80.0-100.0); Mean Platelet Volume 7.3; Monocytes # (A) 0.5 k/uL (0-1.0); Monocytes % (A) 4 %; Neutrophils # (A) 11.8 k/uL (1.3-7.7); Neutrophils % (A) 89 %; Platelet Count 354 k/uL (150-450); RBC 4.04 m/uL (3.80-5.40); RDW 15.2 % (11.5-15.5); WBC 13.2 k/uL (3.8-10.6)
[2022-05-26 12:59] LABS: INR 0.9 (<1.2); Prothrombin Time 10.3 sec (9.0-12.0)
[2022-05-26 13:42] LABS: Partial Thromboplastin Time 21.6 sec (22.0-30.0)
--- NOTE | 2022-05-26 18:20 | CA ---
Transthoracic Echo Report Name: La Matthews Age: 66 Gender: F : 1955 Exam Date: 05/26/2022 14:07 Exam Location: [place] [facility] Ht (in): 66 Wt (lb): 145 Ordering Physician: Xi Esqueda MD ([id number]) Attending/Referring Phys: Sales Operations Lead Valerie Yanez RDCS Procedure CPT: Indications: CAD Cardiac Hx: Technical Quality: Fair Contrast 1: Total Dose (mL): Contrast 2: Total Dose (mL): MEASUREMENTS (Male / Female) Normal Values 2D ECHO LV Diastolic Diameter PLAX 4.2 cm 4.2 - 5.9 / 3.9 - 5.3 cm LV Systolic Diameter PLAX 2.6 cm IVS Diastolic Thickness 1.2 cm 0.6 - 1.0 / 0.6 - 0.9 cm LVPW Diastolic Thickness 1.5 cm 0.6 - 1.0 / 0.6 - 0.9 cm LV Relative Wall Thickness 0.6 RV Internal Dim ED PLAX 3.1 cm LA Volume 43.1 cm??? 18 - 58 / 22 - 52 cm??? M-MODE Aortic Root Diameter MM 3.5 cm LA Systolic Diameter MM 4.1 cm LA Ao Ratio MM 1.2 AV Cusp Separation MM 2.0 cm DOPPLER AV Peak Velocity 135.6 cm/s AV Peak Gradient 7.4 mmHg LVOT Peak Velocity 125.0 cm/s LVOT Peak Gradient 6.3 mmHg MV Area PHT 2.3 cm??? Mitral E Point Velocity 75.0 cm/s Mitral A Point Velocity 89.9 cm/s Mitral E to A Ratio 0.8 MV Deceleration Time 324.2 ms MV E' Velocity 4.3 cm/s Mitral E to MV E' Ratio 17.6 TR Peak Velocity 245.7 cm/s TR Peak Gradient 24.1 mmHg Right Ventricular Systolic Press 29.1 mmHg FINDINGS Left Ventricle Mildly increased left ventricular wall thickness. Normal left ventricular systolic function with no obvious regional wall motion abnormalities. Left ventricular ejection fraction is estimated at 55-60 %. Right Ventricle Normal right ventricular size and function. Right ventricular systolic pressure within normal limits. Right Atrium Normal right atrial size. Left Atrium Normal left atrial size. No evidence for an atrial septal defect. Mitral Valve Structurally normal mitral valve. No mitral stenosis. Mild mitral regurgitation. Aortic Valve No aortic valve stenosis or regurgitation. Tricuspid Valve Mild tricuspid regurgitation.structurally normal tricuspid valve. Pulmonic Valve Trace pulmonic regurgitation.structurally normal pulmonic valve. Pericardium No pericardial effusion. Aorta Normal size aortic root and proximal ascending aorta. CONCLUSIONS 1. Normal left ventricle size and systolic function 2. Mild mitral and tricuspid regurgitation 3. No pericardial effusion Previewed by: Dr. Xi Esqueda MD (Electronically Signed) Final Date: 26 May 2022 18:19
[2022-05-26] MEDS: ATORVASTATIN 80 MG TAB PO SCH (22:33)
[2022-05-26] MEDS: METOPROLOL TARTRATE 12.5 MG TAB PO SCH (22:33)
[2022-05-26] MEDS: busPIRone HCl 5 MG TAB PO SCH (22:33)
[2022-05-26] MEDS: TICAGRELOR 90 MG TAB PO SCH (22:33)
[2022-05-26] MEDS: HEPARIN SODIUM 1,000 UN/ML (10ML VL) IV PRN (22:50)
[2022-05-27] MEDS ORDERED: ASPIRIN 325 MG TAB PO ONE (06:00)
[2022-05-27] MEDS ORDERED: ATORVASTATIN 80 MG TAB PO ONE (06:00)
[2022-05-27] MEDS ORDERED: HEPARIN SODIUM,PORCINE 2,500 UNIT in SODIUM CHLORIDE 0.9% 250 ML IRRIGATION PRN (07:00)
[2022-05-27] MEDS ORDERED: HEPARIN SODIUM,PORCINE 10,000 UNIT in SODIUM CHLORIDE 0.9% 1,000 ML IRRIGATION PRN (07:00)
[2022-05-27 07:17] LABS: Glucose,Whole Blood 107 mg/dL (70-110)
[2022-05-27 07:32] LABS: Prothrombin Time 11.1 sec (9.0-12.0)
[2022-05-27] MEDS: FLUoxetine HCL 20 MG CAP PO SCH (07:51)
[2022-05-27] MEDS: PANTOPRAZOLE 40 MG TABLET PO SCH (07:51)
[2022-05-27] MEDS: METOPROLOL TARTRATE 12.5 MG TAB PO SCH ×2 (07:51→20:24)
[2022-05-27] MEDS: TICAGRELOR 90 MG TAB PO SCH ×2 (07:58→20:24)
[2022-05-27] MEDS: HEPARIN SODIUM 1,000 UN/ML (10ML VL) IV PRN (07:59)
[2022-05-27 10:21] LABS: Basophils # (A) 0.03 X 10*3/uL (0.00-0.10); Basophils % (A) 0.3 %; Eosinophils # (A) 0.07 X 10*3/uL (0.04-0.35); Eosinophils % (A) 0.8 %; HCT 29.8 % (37.2-46.3); HGB 9.4 g/dL (12.0-15.0); Immature Grans, Automated 0.4 %; Lymphocytes # (A) 0.99 X 10*3/uL (0.90-5.00); Lymphocytes % (A) 10.6 %; MCH 26.2 pg (27.0-32.0); MCHC 31.5 g/dL (32.0-37.0); Monocytes # (A) 0.58 X 10*3/uL (0.20-1.00); Monocytes % (A) 6.2 %; NRBC Per 100 WBC 0 /100 WBCS (0.0-0.0); Neutrophils # (A) 7.59 X 10*3/uL (1.80-7.70); Neutrophils % (A) 81.7 %; Platelet Count 287 X 10*3/uL (140-440); RBC 3.59 X 10*6/uL (4.10-5.20); RDW 15.8 % (11.5-14.5)
[2022-05-27 10:35] LABS: African American GFR (CKD) 103.2 (60.0-200.0); Anion Gap 10.5 mmol/L (10.00-18.00); BUN/Creat Ratio 11.57 Ratio (12.00-20.00); Blood Urea Nitrogen 8.1 mg/dL (9.0-27.0); Calcium 8.4 mg/dL (8.7-10.3); Carbon Dioxide 19.5 mmol/L (20.0-27.5); Potassium 3.8 mmol/L (3.5-5.5)
[2022-05-27] MEDS ORDERED: IV FLUID CONTINUATION 1,000 ML IV ONE (11:40)
[2022-05-27] MEDS ORDERED: fentaNYL (PF) 50 MCG/ML 2 ML AMP ONE (11:54)
[2022-05-27] MEDS ORDERED: VERAPAMIL 2.5 MG/ML 2 ML AMP ONE (11:54)
[2022-05-27] MEDS ORDERED: HEPARIN SODIUM 1,000 UN/ML (10ML VL) ONE (11:54)
[2022-05-27] MEDS ORDERED: MIDAZOLAM 2 MG/2 ML VIAL IV ONE (12:16)
[2022-05-27] MEDS ORDERED: fentaNYL (PF) 50 MCG/ML 2 ML AMP IV ONE (12:16)
[2022-05-27] MEDS ORDERED: LIDOCAINE 1% INJ 10MG/ML (5 ML VIAL-PF) SQ ONE (12:17)
[2022-05-27] MEDS ORDERED: VERAPAMIL SYRINGE (5 MG/10 ML) INTRAARTER ONE (12:22)
[2022-05-27] MEDS: HEPARIN SODIUM 1,000 UN/ML (10ML VL) IV ONE ×5 (12:27→13:22)
[2022-05-27] MEDS ORDERED: NITROGLYCERIN 1000MCG/10ML SYRINGE INTRACORON ONE ×2 (12:32→13:05)
[2022-05-27] MEDS ORDERED: SODIUM CHLORIDE 0.9% 1,000 ML IV ONE (12:34)
[2022-05-27] MEDS: PHENYLEPHRINE-0.9% NACL SYG 1,000 MCG/10 ML SYRINGE IV ONE ×2 (13:04→13:15)
[2022-05-27] MEDS ORDERED: IOPAMIDOL-370 125ML BTL INJ ONE (13:13)
[2022-05-27] MEDS ORDERED: IOPAMIDOL-370 100ML BTL INJ ONE (13:18)
--- NOTE | 2022-05-27 13:31 | P.PRCINT ---
Percutaneous Coronary Int. - Percutaneous Coronary Intervention Percutaneous Coronary Intervention: PROCEDURES PERFORMED: Left heart catheterization, bilateral coronary angiography, iFR LAD, PCI mLAD with a 2.25 x 23 mm Xience TJ, postdilated with a 2.5 NC balloon INDICATION: Unstable angina, history of CAD CONSENT:I have discussed the risks, benefits and alternative therapies for the above-mentioned procedure and for both sedation/analgesia as well as necessary blood product administration, if indicated, as they pertain to this patient. The patient has indicated understanding and acceptance of the risks and procedures discussed. PROCEDURE: After the risks, benefits and alternatives of the above mentioned procedure explained in detail with the patient, informed consent was obtained. Patient was taken to the catheterization lab and prepped and draped in usual fashion. 1% lidocaine was used to anesthetize the right radial artery. A 6- Mauritian sheath was placed in the right radial artery using modified Seldinger technique. Left coronary angiography was performed with a 5-Mauritian JL 3.5 catheter and right coronary angiography was performed with a 5-Mauritian JR5 catheter in various views. A 5-Mauritian FR5 catheter was inserted into the left ventricle and pressure measurements were obtained. The decision was made to perform iFR of LAD. Heparin was given for ACT greater than 250. A 6-Mauritian CLS 3.5 guide was used to engage the left main. A 0.014 pressure wire was advanced into the proximal left main and normalize. He was then placed approximately 1 cm distal to the mid LAD lesion and iFR was performed and was grossly abnormal at 0.66. Therefore the decision was made to perform PCI. An additional 0.014 BMW wire was advanced into the distal diagonal branch. Balloon angioplasty was performed of the mid LAD with a 2.0 x 12 mm balloon. Next a 2.25 x 23 mm Xience TJ was deployed overlapping the previous mid LAD stent into the mid to distal LAD. The proximal and midportion of the stent was postdilated with a 2.5 noncompliant balloon. The wires were pulled and final angiograms were performed. Preintervention there was 70% stenosis and GINO-3 flow and postintervention there was 0% stenosis with GINO 3 flow and no compromise of the diagonal branch. The right radial sheath was removed and a TR band was placed with hemostasis achieved. The patient tolerated the procedure well. Patient was transported back to the post catheterization holding area in stable condition. Conscious Sedation: Patient was monitored under the direct supervision of vision of myself for conscious sedation using Versed and fentanyl for a total duration of 63 minutes HEMODYNAMICS: Aorta: 99/44 LV: 105/1, LVEDP 11 SELECTIVE CORONARY ARTERIOGRAPHY: LEFT MAIN: The left main is a large caliber vessel which bifurcates into the LAD and circumflex. There is no significant stenosis. LEFT ANTERIOR DESCENDING CORONARY ARTERY: LAD is a large caliber vessel which wraps around to the apex. There is a long proximal to mid LAD stents which is widely patent. Just after the stent there is diffuse 50 to up to 70% stenosis just after the diagonal 1 branch. The mid to distal LAD has mild luminal irregularities. LEFT CIRCUMFLEX CORONARY ARTERY: Left circumflex is a moderate caliber vessel with mild luminal irregularities. RIGHT CORONARY ARTERY: The right coronary artery is a large caliber vessel which gives off a PDA and PLV branch and is the dominant vessel. There is a mid RCA 40-50% stenosis which appears unchanged from prior. FINAL IMPRESSION: 1. CAD as described above with patent LAD stents more distal mid to distal LAD 50-70% stenosis (iFR abnormal at 0.66), 40-50% mid RCA stenosis and otherwise mild luminal irregularities. 2. S/p PCI mid LAD with a 2.25 x 23 mm Xience TJ, postdilated with a 2.5 NC balloon 3. Normal left sided filling pressures PLAN: 1. Aggressive risk factor modification per most recent ACC/AHA guidelines. 2. Continue dual antiplatelets with aspirin and Brillinta for 12 months.
[2022-05-27] MEDS ORDERED: ZOLPIDEM 5 MG TAB PO PRN (13:33)
[2022-05-27] MEDS ORDERED: RX INFO: IV CONTRAST WAS GIVEN 1 EACH MISC MISCELLANE PRN (13:33)
[2022-05-27] MEDS ORDERED: ATROPINE SULFATE 0.1 MG/ML 10ML SYRINGE IV PRN (13:33)
[2022-05-27] MEDS ORDERED: MAG HYDROX/AL HYDROX/SIMETH 30 ML CUP PO PRN (13:33)
--- NOTE | 2022-05-27 13:50 | P.HPIM ---
History of Present Illness H&P Date: 06/03/22 Chief Complaint: Diaphoresis, shortness of breath This is 66-year-old female with past medical history of recent STEMI on 2021 with stents to the LAD 2, prior history of ischemic cardiomyopathy, EF 30-35%, related 04/14/2022 for chest pain-medical management recommended, gastroesophageal reflux disease, hyperlipidemia, anxiety, former nicotine dependence, occasional marijuana use and multiple other medical uses presented to the ER with complaints of increased fatigue, diaphoresis and shortness of breath. Reports feeling tired 2 days, then yesterday morning patient woke with shortness of breath, diaphoresis "versus actual chest pressure, chest pain. She presented to the ER, cardiology consulted. EKG reporting sinus with anterior T-wave inversion/ Telemetry sinus. Troponins negative. ProBNP 756. Echo reporting normal LV function .Chest x-ray nonacute. Renal function stable, hemoglobin 9.4, platelets 287. Heparin drip initiated. ^ Review of Systems ROS Statement: Those systems with pertinent positive or pertinent negative responses have been documented in the HPI. ROS Other: All systems not noted in ROS Statement are negative. Past Medical History Past Medical History: Coronary Artery Disease (CAD), GERD/Reflux, Hyperlipidemia, Myocardial Infarction ([place]) Additional Past Medical History / Comment(s): Recent hypotension, ischemic cardiomyopathy Last Myocardial Infarction Date:: 03/10/22 History of Any Multi-Drug Resistant Organisms: None Reported Past Surgical History: Heart Catheterization With Stent, Tubal Ligation Past Anesthesia/Blood Transfusion Reactions: No Reported Reaction Additional Past Anesthesia/Blood Transfusion Reaction / Comment(s): Pt has motion sickness Date of Last Stent Placement:: 03/10/2022 Smoking Status: Former smoker - Past Family History Mother Family Medical History: CVA/TIA Additional Family Medical History / Comment(s): TIAs, stomach issues Father Family Medical History: Cancer, Diabetes Mellitus Additional Family Medical History / Comment(s): Heart problems Medications and Allergies Home Medications Medication Instructions Recorded Confirmed Type FLUoxetine HCL 40 mg PO DAILY 03/10/22 05/26/22 History Omeprazole 20 mg PO DAILY 03/10/22 05/26/22 History Aspirin 81 mg PO DAILY 90 Days #90 tab 03/12/22 05/26/22 Rx Atorvastatin [Lipitor] 80 mg PO HS 90 Days #90 tab 03/12/22 05/26/22 Rx Nitroglycerin Sl Tabs [Nitrostat] 0.4 mg SUBLINGUAL Q5M PRN #25 tab 03/12/22 05/26/22 Rx Ticagrelor [Brilinta] 90 mg PO BID 90 Days #180 tab 03/12/22 05/26/22 Rx Acetaminophen Tab [Tylenol] 650 mg PO Q4HR PRN tab 03/14/22 05/26/22 Rx Metoprolol Tartrate [Lopressor] 12.5 mg PO BID 05/26/22 05/26/22 History busPIRone HCL 15 mg PO HS 05/26/22 05/26/22 History Allergies Allergy/AdvReac Type Severity Reaction Status Date / Time Penicillins Allergy Rash/Hives Verified 05/26/22 08:02 Physical Exam Vitals: Vital Signs Temp Pulse Resp BP BP Pulse Ox 05/27/22 07:00 98.1 F 66 144/67 97 05/27/22 02:00 97.9 F 77 18 125/71 97 05/27/22 01:51 75 17 05/26/22 20:00 70 16 05/26/22 19:17 98.1 F 70 16 110/62 98 05/26/22 15:00 98.2 F 73 114/67 98 Intake and Output 05/26/22 05/27/22 05/27/22 22:59 06:59 14:59 Intake Total 79.456 1000 524.639 Balance 79.456 1000 524.639 Intake: IV 400 Intake, IV Titration 79.456 1000 124.639 Amount Heparin Sod,Pork in 0.45% 79.456 124.639 NaCl 25,000 unit In 0.45 % NaCl 1 250ml.bag @ 12 UNITS/KG/HR 7.893 mls/hr IV .Q24H [facility] Rx#: [id number] Sodium Chloride 0.9% 1, 1000 000 ml @ 75 mls/hr IV . [id number] [facility] Rx#:[id number] Other: Voiding Method Toilet Toilet # Voids 1 Gen: Sitting up in bed, awake and alert x 3. well developed and well nourished, no acute distress HEENT: Head is atraumatic, normocephalic. Pupils equal, round. Sclerae is anicteric. NECK: Supple. No JVD. No lymphadenopathy. No thyromegaly. LUNGS: diminished breath sounds bilaterally with no wheezing or rhonchi. HEART: Regular rate and rhythm. Systolic murmur. ABDOMEN: Soft.Bowel sounds are present. No masses. No tenderness. EXTREMITIES: No pedal edema. No calf tenderness. NEUROLOGICAL: Patient is awake, alert and oriented x3. Results CBC & Chem 7: 05/27/22 06:04 05/27/22 06:04 Labs: Abnormal Lab Results - Last 24 Hours (Table) 05/26/22 05/27/22 05/27/22 Range/Units 12: 06:04 06:04 RBC 3.59 L (4.10-5.20) X 10*6/uL Hgb 9.4 L (12.0-15.0) g/dL Hct 29.8 L (37.2-46.3) % MCH 26.2 L (27.0-32.0) pg MCHC 31.5 L (32.0-37.0) g/dL RDW 15.8 H (11.5-14.5) % APTT 21.6 L (22.0-30.0) sec Carbon Dioxide 19.5 L (20.0-27.5) mmol/L BUN 8.1 L (9.0-27.0) mg/dL BUN/Creatinine Ratio 11.57 L (12.00-20.00) Ratio Calcium 8.4 L (8.7-10.3) mg/dL 05/27/22 Range/Units 06:04 RBC (4.10-5.20) X 10*6/uL Hgb (12.0-15.0) g/dL Hct (37.2-46.3) % MCH (27.0-32.0) pg MCHC (32.0-37.0) g/dL RDW (11.5-14.5) % APTT 36.8 H (22.0-30.0) sec Carbon Dioxide (20.0-27.5) mmol/L BUN (9.0-27.0) mg/dL BUN/Creatinine Ratio (12.00-20.00) Ratio Calcium (8.7-10.3) mg/dL Thrombosis Risk Factor Assmnt - Choose All That Apply Any of the Below Risk Factors Present?: Yes Other Risk Factors: Yes Each Risk Factor Represents 2 Points: Age 61-74 years Other congenital or acquired thrombophilia - If yes, enter type in comment: No Thrombosis Risk Factor Assessment Total Risk Factor Score: 2 Thrombosis Risk Factor Assessment Level: Low Risk Assessment and Plan Assessment: Diaphoresis, shortness of breath with minimal chest pressure, cardiac cath pending. History of STEMI status post stent placement 2 to the LAD, History of Ischemic cardiomyopathy, EF 30-35%, currently EF 55-60% Hypotension on Aldactone on previous admission Hyperlipidemia Gastroesophageal reflux disease Anxiety Depression Prior nicotine use Occasional marijuana use Plan: Continue on current medication regime ,monitoring and symptomatic treatment. Patient has been evaluated by cardiology and scheduled for cardiac catheterization. Maintained on heparin drip. Discharge planning in progress pending cardiac catheterization results, final DC recommendations and clearance per cardiology. The impression and plan of care has been dictated as directed. : I performed a history and examination of this patient, discussed the same with the dictator. I agree with the dictator's note ,documented as a scribe. Any additional findings or plans will be noted.
[2022-05-27 17:22] VITALS: BMI 23.3
[2022-05-27] MEDS: HEPARIN SOD,PORK IN 0.45% NACL 25,000 UNIT in 0.45% NACL 1 250ML.BAG IV SCH (18:18)
[2022-05-27] MEDS: busPIRone HCl 5 MG TAB PO SCH (20:24)
[2022-05-27] MEDS: ATORVASTATIN 80 MG TAB PO SCH (20:24)
[2022-05-28 05:01] VITALS: RESP 16
[2022-05-28 08:03] VITALS: BP 117/67; PULSE 65; TEMP 98.4
--- NOTE | 2022-05-28 08:21 | P.PN ---
Subjective Progress Note Date: 05/28/22 PROGRESS NOTE The patient is a 66-year-old female with a history of CAD who presented with symptoms of chest discomfort, underwent cardiac catheterization yesterday by Dr. Loyd was found to have a patent stent with moderate significant disease in the mid LAD was positive IFR. Underwent stenting of that vessel. She's feeling well this morning, she denies any chest discomfort dizziness or palpitations. She denies any nausea. She is in sinus mechanism. Medications: Lipitor 80 mg daily, aspirin once a day, Brilinta 90 mg twice a day PHYSICAL EXAMINATION: Blood pressure 117/60 heart rate 65 LUNGS: Clear to auscultation HEART: Regular rate and rhythm, S1, S2. No S3. systolic ejection murmur ABDOMEN: Soft, nontender, no organomegaly EXTREMETIES: No edema, right radial pulse intact LAB: Pending IMPRESSION: 1. Status post stenting of the LAD 2. History of hyperlipidemia 3. Prior stenting of the LAD, patent PLAN: 1. Continue present therapy 2. Discharged home today 3. And follow-up with Dr. Loyd in one week Objective - Vital Signs Vital signs: Vital Signs Temp 98.4 F 05/28/22 07:00 Pulse 65 05/28/22 07:00 Resp 16 05/28/22 07:00 BP 117/67 05/28/22 07:00 Pulse Ox 97 05/28/22 07:00 FiO2 Intake & Output 05/27/22 05/28/22 05/28/22 18:59 06:59 18:59 Intake Total 524.639 Balance 524.639 Weight 65.771 kg Intake: IV 400 Intake, IV Titration 124.639 Amount Heparin Sod,Pork in 0.45% 124.639 NaCl 25,000 unit In 0.45 % NaCl 1 250ml.bag @ 12 UNITS/KG/HR 7.893 mls/hr IV .Q24H [facility] Rx#: [id number] Other: Voiding Method Toilet # Voids 1 1 - Labs CBC & Chem 7: 05/27/22 06:04 05/27/22 06:04 Labs: Abnormal Lab Results - Last 24 Hours (Table) 05/27/22 05/27/22 05/27/22 Range/Units 06:04 06:04 15:32 RBC 3.59 L (4.10-5.20) X 10*6/uL Hgb 9.4 L (12.0-15.0) g/dL Hct 29.8 L (37.2-46.3) % MCH 26.2 L (27.0-32.0) pg MCHC 31.5 L (32.0-37.0) g/dL RDW 15.8 H (11.5-14.5) % APTT 98.4 H (22.0-30.0) sec Carbon Dioxide 19.5 L (20.0-27.5) mmol/L BUN 8.1 L (9.0-27.0) mg/dL BUN/Creatinine Ratio 11.57 L (12.00-20.00) Ratio Calcium 8.4 L (8.7-10.3) mg/dL
[2022-05-28] MEDS ORDERED: ASPIRIN 81 MG PO SCH (09:00)
[2022-05-28] MEDS: FLUoxetine HCL 20 MG CAP PO SCH (09:10)
[2022-05-28] MEDS: TICAGRELOR 90 MG TAB PO SCH (09:10)
[2022-05-28] MEDS: PANTOPRAZOLE 40 MG TABLET PO SCH (09:10)
[2022-05-28] MEDS: METOPROLOL TARTRATE 12.5 MG TAB PO SCH (09:10)
[2022-05-28 10:02] LABS: Basophils % (A) 1 %; Eosinophils # (A) 0.1 k/uL (0-0.7); Eosinophils % (A) 2 %; HCT 32.2 % (34.0-46.0); HGB 10.1 gm/dL (11.4-16.0); Hypochromasia Moderate; Lymphocytes # (A) 0.7 k/uL (1.0-4.8); Lymphocytes % (A) 11 %; MCH 26.9 pg (25.0-35.0); MCHC 31.4 g/dL (31.0-37.0); MCV 85.6 fL (80.0-100.0); Mean Platelet Volume 7.3; Monocytes # (A) 0.2 k/uL (0-1.0); Monocytes % (A) 4 %; Neutrophils # (A) 5.5 k/uL (1.3-7.7); Neutrophils % (A) 82 %; Platelet Count 367 k/uL (150-450); RBC 3.76 m/uL (3.80-5.40); RDW 15.4 % (11.5-15.5); WBC 6.8 k/uL (3.8-10.6)
[2022-05-28 10:23] LABS: African American GFR (CKD) >90 (>60 ml/min/1.73 sqM); Anion Gap 10 mmol/L; Blood Urea Nitrogen 10 mg/dL (7-17); Calcium 8.6 mg/dL (8.4-10.2); Carbon Dioxide 21 mmol/L (22-30); Chloride 107 mmol/L (98-107); Glucose 109 mg/dL (74-99); Non-African American GFR(CKD) 89 (>60 ml/min/1.73 sqM); Potassium 3.8 mmol/L (3.5-5.1); Sodium 138 mmol/L (137-145)
--- NOTE | 2022-05-28 11:30 | P.DS ---
Providers Date of admission: 05/26/22 08:18 Expected date of discharge: 05/28/22 Attending physician: Chet Laguna MD Consults: 05/26/22 08:18 Consult Physician Urgent Consulting Provider: Jose Carreon Consult Reason/Comments: acute chest pain Do you want consulting provider notified?: Yes 05/27/22 13:33 Consult Physician Routine Consulting Provider: Jose Carreon Consult Reason/Comments: Post Interventional patient Do you want consulting provider notified?: Already Contacted Primary care physician: Antonia Cee Hospital Course: Final Diagnoses: Diaphoresis, shortness of breath with minimal chest pressure, status post cardiac cath.with mid LAD stenting History of STEMI status post stent placement 2 to the LAD, History of Ischemic cardiomyopathy, EF 30-35%, currently EF 55-60% Hypotension on Aldactone on previous admission Hyperlipidemia Gastroesophageal reflux disease Anxiety Depression Prior nicotine use Occasional marijuana use Hospital course:This is 66-year-old female with past medical history of recent STEMI on 2021 with stents to the LAD 2, prior history of ischemic cardiomyopathy, EF 30-35%, related 04/14/2022 for chest pain-medical management recommended, gastroesophageal reflux disease, hyperlipidemia, anxiety, former nicotine dependence, occasional marijuana use and multiple other medical uses presented to the ER with complaints of increased fatigue, diaphoresis and shortness of breath. Reports feeling tired 2 days, then yesterday morning patient woke with shortness of breath, diaphoresis "versus actual chest pressure, chest pain. She presented to the ER, cardiology consulted. EKG reporting sinus with anterior T-wave inversion/ Telemetry sinus. Troponins negative. ProBNP 756. Echo reporting normal LV function .Chest x-ray nonacute. Renal function stable, hemoglobin 9.4, platelets 287. Heparin drip initiated. Yesterday underwent cardiac catheterization with mid LAD stenting, tolerated procedure well. Denies any chest pain palpitations or shortness of breath. Denies any chest pressure, diaphoresis. Denies any lightheadedness, dizziness or focal deficits. Denies any nausea, vomiting. Telemetry sinus. Patient has been cleared for discharge by cardiology. Patient will be discharged home today in a stable condition with guarded prognosis. The impression and plan of care has been dictated as directed. : I performed a history and examination of this patient, discussed the same with the dictator. I agree with the dictator's note ,documented as a scribe. Any additional findings or plans will be noted. Patient Condition at Discharge: Stable Plan - Discharge Summary Discharge Rx Participant: No New Discharge Prescriptions: Continue Aspirin 81 mg PO DAILY 90 Days #90 tab Nitroglycerin Sl Tabs [Nitrostat] 0.4 mg SUBLINGUAL Q5M PRN #25 tab PRN Reason: Chest Pain FLUoxetine HCL 40 mg PO DAILY Omeprazole 20 mg PO DAILY Ticagrelor [Brilinta] 90 mg PO BID 90 Days #180 tab Atorvastatin [Lipitor] 80 mg PO HS 90 Days #90 tab Acetaminophen Tab [Tylenol] 650 mg PO Q4HR PRN tab PRN Reason: Fever and/ or MILD Pain busPIRone HCL 15 mg PO HS Metoprolol Tartrate [Lopressor] 12.5 mg PO BID Discharge Medication List FLUoxetine HCL 40 mg PO DAILY 03/10/22 [History] Omeprazole 20 mg PO DAILY 03/10/22 [History] Aspirin 81 mg PO DAILY 90 Days #90 tab 03/12/22 [Rx] Atorvastatin [Lipitor] 80 mg PO HS 90 Days #90 tab 03/12/22 [Rx] Nitroglycerin Sl Tabs [Nitrostat] 0.4 mg SUBLINGUAL Q5M PRN #25 tab 03/12/22 [Rx] Ticagrelor [Brilinta] 90 mg PO BID 90 Days #180 tab 03/12/22 [Rx] Acetaminophen Tab [Tylenol] 650 mg PO Q4HR PRN tab 03/14/22 [Rx] Metoprolol Tartrate [Lopressor] 12.5 mg PO BID 05/26/22 [History] busPIRone HCL 15 mg PO HS 05/26/22 [History] Follow up Appointment(s)/Referral(s): Chet Laguna MD [STAFF PHYSICIAN] - 1 Week Jeancarlos Loyd DO [STAFF PHYSICIAN] - 1 Week
== END 2022-05-28 13:00 ==
LOC: EC 06:41 → 6NMEDSUR 08:18
PROVIDERS: ADMIT Family Medicine; ATTEND Family Medicine
DX: R07.89 Other chest pain (principal); R06.02 Shortness of breath; R61 Generalized hyperhidrosis; E78.5 Hyperlipidemia, unspecified; K21.9 Gastro-esophageal reflux disease without esophagitis; F41.9 Anxiety disorder, unspecified; F32.A Depression, unspecified; Z87.891 Personal history of nicotine dependence; R53.83 Other fatigue; I10 Essential (primary) hypertension; I25.10 Atherosclerotic heart disease of native coronary artery without angina pectoris; I25.5 Ischemic cardiomyopathy; I25.2 Old myocardial infarction; W19.XXXA Unspecified fall, initial encounter; Z82.3 Family history of stroke; Z83.3 Family history of diabetes mellitus; Z95.5 Presence of coronary angioplasty implant and graft; Z79.02 Long term (current) use of antithrombotics/antiplatelets; Z79.82 Long term (current) use of aspirin; Z79.899 Other long term (current) drug therapy
CPT/HCPCS: 96360; 96361; 99285; 36415; 93005; 93306; 93458; 93799; 83880; 80053; 80048 ×2; 83735; 84484; 85025 ×3; 85610 ×2; 85730 ×2; 71045; G0378 ×3; C9600; C1769 ×3; C1887; C1894; C1725 ×2; C1874; J2250; J2001; J3010; J1644 ×3; J2370; Q9967 ×2

== ENCOUNTER 2022-07-26 11:22 | Emergency (ER) | payer MEDICARE ==
--- NOTE | 2022-07-26 12:01 | ED ---
General Adult HPI - General Chief complaint: Weakness Stated complaint: SOB, fall Time Seen by Provider: 07/26/22 11:35 Source: patient, RN notes reviewed, old records reviewed Mode of arrival: ambulatory Limitations: no limitations - History of Present Illness Initial comments: This is a 58-year-old female who states she walked up a couple steps was about 2 feet off the ground and she fell off the step. Patient states she doesn't know why she fell off she was not lightheaded she denies any chest pain denies palpitations. Patient states she denies any shortness of breath or difficulty breathing. Patient denies any recent illness per patient any nausea vomiting diarrhea per patient denies any fever chills. Patient states when she fell she landed on her left foot and it foot and ankle hurt on the left. Patient denies any knee pain or hip pain. Patient denies any other symptoms at this time. - Related Data Home Medications Medication Instructions Recorded Confirmed FLUoxetine HCL 40 mg PO DAILY 03/10/22 05/26/22 Omeprazole 20 mg PO DAILY 03/10/22 05/26/22 Metoprolol Tartrate [Lopressor] 12.5 mg PO BID 05/26/22 05/26/22 busPIRone HCL 15 mg PO HS 05/26/22 05/26/22 Previous Rx's Medication Instructions Recorded Aspirin 81 mg PO DAILY 90 Days #90 tab 03/12/22 Atorvastatin [Lipitor] 80 mg PO HS 90 Days #90 tab 03/12/22 Nitroglycerin Sl Tabs [Nitrostat] 0.4 mg SUBLINGUAL Q5M PRN #25 tab 03/12/22 Ticagrelor [Brilinta] 90 mg PO BID 90 Days #180 tab 03/12/22 Acetaminophen Tab [Tylenol] 650 mg PO Q4HR PRN tab 03/14/22 Allergies Allergy/AdvReac Type Severity Reaction Status Date / Time Penicillins Allergy Rash/Hives Verified 07/26/22 11:30 Review of Systems ROS Statement: Those systems with pertinent positive or pertinent negative responses have been documented in the HPI. ROS Other: All systems not noted in ROS Statement are negative. Past Medical History Past Medical History: Coronary Artery Disease (CAD), GERD/Reflux, Hyperlipidemia, Myocardial Infarction ([place]) Additional Past Medical History / Comment(s): Recent hypotension, ischemic cardiomyopathy Last Myocardial Infarction Date:: 03/10/22 History of Any Multi-Drug Resistant Organisms: None Reported Past Surgical History: Heart Catheterization With Stent, Tubal Ligation Past Anesthesia/Blood Transfusion Reactions: No Reported Reaction Additional Past Anesthesia/Blood Transfusion Reaction / Comment(s): Pt has motion sickness Date of Last Stent Placement:: 03/10/2022 Past Psychological History: Anxiety Smoking Status: Former smoker Past Alcohol Use History: None Reported Past Drug Use History: None Reported - Past Family History Mother Family Medical History: CVA/TIA Additional Family Medical History / Comment(s): TIAs, stomach issues Father Family Medical History: Cancer, Diabetes Mellitus Additional Family Medical History / Comment(s): Heart problems General Exam - General Exam Comments Initial Comments: GENERAL: Patient is well-developed and well-nourished. Patient is nontoxic and well- hydrated and is in mild distress. ENT: Neck is soft and supple. No significant lymphadenopathy is noted. Oropharynx is clear. Moist mucous membranes. Neck has full range of motion without eliciting any pain. EYES: The sclera were anicteric and conjunctiva were pink and moist. Extraocular movements were intact and pupils were equal round and reactive to light. Eyelids were unremarkable. PULMONARY: Unlabored respirations. Good breath sounds bilaterally. No audible rales rhonchi or wheezing was noted. CARDIOVASCULAR: There is a regular rate and rhythm without any murmurs gallops or rubs. ABDOMEN: Soft and nontender with normal bowel sounds. SKIN: Skin is clear with no lesions or rashes and otherwise unremarkable. NEUROLOGIC: Patient is alert and oriented x3. Cranial nerves II through XII are grossly intact. Motor and sensory are also intact. Normal speech, volume and content. Symmetrical smile. MUSCULOSKELETAL: Patient has ecchymosis to the top of the foot has tenderness throughout the metatarsals 2 through 5. Patient also has tenderness at the medial malleolus. LYMPHATICS: No significant lymphadenopathy is noted PSYCHIATRIC: Normal psychiatric evaluation. Limitations: no limitations Course Vital Signs 07/26/22 07/26/22 11:26 12:39 Temperature 98.2 F Pulse Rate 62 62 Respiratory 20 18 Rate Blood Pressure 122/70 138/79 O2 Sat by Pulse 98 98 Oximetry Procedures - Orthopedic Splinting/Casting Injury #1 Side: left Lower Extremity Injury Location: short leg Lower Extremity Immobilizer: posterior splint Medical Decision Making - Medical Decision Making EKG shows sinus bradycardia at 55 bpm UT interval is 162 QRS is 82 QT interval is 455 QTC is 445. Patient's EKG shows T-wave inversions V1 and V2 and V3 which were seen on old EKG. Chest x-ray shows no acute abnormality. In no time did the patient any chest pain palpitations or shortness of breath while in the emergency department. - Lab Data Result diagrams: 07/26/22 12:40 07/26/22 13:33 Lab Results 07/26/22 07/26/22 07/26/22 Range/Units 12:40 12:43 13:33 WBC 11.1 H (3.8-10.6) k/uL RBC 4.33 (3.80-5.40) m/uL Hgb 11.4 (11.4-16.0) gm/dL Hct 36.5 (34.0-46.0) % MCV 84.4 (80.0-100.0) fL MCH 26.4 (25.0-35.0) pg MCHC 31.3 (31.0-37.0) g/dL RDW 15.8 H (11.5-15.5) % Plt Count 398 (150-450) k/uL MPV 7.7 Neutrophils % 82 % Lymphocytes % 10 % Monocytes % 4 % Eosinophils % 3 % Basophils % 1 % Neutrophils # 9.1 H (1.3-7.7) k/uL Lymphocytes # 1.1 (1.0-4.8) k/uL Monocytes # 0.4 (0-1.0) k/uL Eosinophils # 0.4 (0-0.7) k/uL Basophils # 0.1 (0-0.2) k/uL Hypochromasia Moderate Sodium 134 L (137-145) mmol/L Potassium 4.0 (3.5-5.1) mmol/L Chloride 105 (98-107) mmol/L Carbon Dioxide 20 L (22-30) mmol/L Anion Gap 9 mmol/L BUN 20 H (7-17) mg/dL Creatinine 0.70 (0.52-1.04) mg/dL Est GFR (CKD-EPI)AfAm >90 (>60 ml/min/1.73 sqM) Est GFR (CKD-EPI)NonAf 89 (>60 ml/min/1.73 sqM) Glucose 85 (74-99) mg/dL Calcium 8.8 (8.4-10.2) mg/dL Magnesium 2.0 (1.6-2.3) mg/dL Total Bilirubin 1.0 (0.2-1.3) mg/dL AST 26 (14-36) U/L ALT 19 (4-34) U/L Alkaline Phosphatase 126 (38-126) U/L Total Protein 6.0 L (6.3-8.2) g/dL Albumin 3.6 (3.5-5.0) g/dL Coronavirus (PCR) Not Detected (Not Detectd) Disposition Clinical Impression: Metatarsal fracture, Fall, Bradycardia Disposition: HOME SELF-CARE Condition: Good Instructions (If sedation given, give patient instructions): Foot Fracture in Adults (ED), Fall Prevention (ED) Additional Instructions: Patient should follow-up with orthopedics on Thursday. Patient should be nonweightbearing on the left foot Is patient prescribed a controlled substance at d/c from ED?: No Time of Disposition: 14:56
--- NOTE | 2022-07-26 12:28 | XR ---
EXAMINATION TYPE: XR ankle complete LT, XR foot complete LT DATE OF EXAM: 07/26/2022 CLINICAL HISTORY: Fall injury with pain TECHNIQUE: Frontal, lateral and oblique images of the left ankle and foot are obtained. COMPARISON: None. FINDINGS: Osseous structures somewhat demineralized. There is no acute fracture/dislocation evident in the left ankle. The ankle mortise appears within normal limits. Small to moderate size superior a nd inferior calcaneal spurs. The overlying soft tissue appears unremarkable. There is no acute fracture or dislocation evident in the left foot. Hallux valgus deformity first met atarsophalangeal joint with moderate narrowing and spurring. Overlying soft tissue is unremarkable. IMPRESSION: There is no acute fracture or dislocation in the left ankle or foot.
[2022-07-26 12:40] VITALS: RESP 18
[2022-07-26 12:54] LABS: Basophils # (A) 0.1 k/uL (0-0.2); Basophils % (A) 1 %; Eosinophils # (A) 0.4 k/uL (0-0.7); Eosinophils % (A) 3 %; HCT 36.5 % (34.0-46.0); HGB 11.4 gm/dL (11.4-16.0); Hypochromasia Moderate; Lymphocytes # (A) 1.1 k/uL (1.0-4.8); Lymphocytes % (A) 10 %; MCH 26.4 pg (25.0-35.0); MCHC 31.3 g/dL (31.0-37.0); MCV 84.4 fL (80.0-100.0); Mean Platelet Volume 7.7; Monocytes # (A) 0.4 k/uL (0-1.0); Monocytes % (A) 4 %; Neutrophils # (A) 9.1 k/uL (1.3-7.7); Neutrophils % (A) 82 %; Platelet Count 398 k/uL (150-450); RBC 4.33 m/uL (3.80-5.40); RDW 15.8 % (11.5-15.5); WBC 11.1 k/uL (3.8-10.6)
[2022-07-26 14:06] LABS: ALT 19 U/L (4-34); AST 26 U/L (14-36); African American GFR (CKD) >90 (>60 ml/min/1.73 sqM); Albumin 3.6 g/dL (3.5-5.0); Alkaline Phosphatase 126 U/L (38-126); Anion Gap 9 mmol/L; Blood Urea Nitrogen 20 mg/dL (7-17); Calcium 8.8 mg/dL (8.4-10.2); Carbon Dioxide 20 mmol/L (22-30); Chloride 105 mmol/L (98-107); Glucose 85 mg/dL (74-99); Non-African American GFR(CKD) 89 (>60 ml/min/1.73 sqM); Sodium 134 mmol/L (137-145)
--- NOTE | 2022-07-26 14:18 | XR ---
EXAMINATION TYPE: XR chest 2V DATE OF EXAM: 07/26/2022 COMPARISON: 05/26/2022 HISTORY: Short of breath TECHNIQUE: FINDINGS: Heart and mediastinum are normal. Lungs are clear. Diaphragm is normal. Bony thorax is inta ct. There are chest leads. IMPRESSION: Normal chest. No change.
[2022-07-26 15:20] VITALS: BP 133/94; PULSE 60; TEMP 98.4
== END 2022-07-26 15:40 | disposition home or self-care (01) ==
LOC: EC 11:22
DX: S92.302A Fracture of unspecified metatarsal bone(s), left foot, initial encounter for closed fracture (principal); Z87.891 Personal history of nicotine dependence; Z88.0 Allergy status to penicillin; W10.9XXA Fall (on) (from) unspecified stairs and steps, initial encounter
CPT/HCPCS: 36415; 71046; 80053; 83735; 85025; 87635; 93005

== ENCOUNTER 2022-11-01 10:54 | Emergency (ER) | payer MEDICARE ==
[2022-11-01 10:58] VITALS: TEMP 98
[2022-11-01] MEDS ORDERED: ASPIRIN 81 MG PO STA (11:33)
[2022-11-01] MEDS ORDERED: NITROGLYCERIN SL TABS 0.4 MG TAB SUBLINGUAL STA (11:33)
[2022-11-01] MEDS ORDERED: SODIUM CHLORIDE 0.9% 500 ML 500 ML IV STA (11:34)
[2022-11-01 12:13] LABS: Basophils % (A) 0 %; Eosinophils # (A) 0.1 k/uL (0-0.7); Eosinophils % (A) 2 %; HCT 36.2 % (34.0-46.0); HGB 11.6 gm/dL (11.4-16.0); Lymphocytes # (A) 1.1 k/uL (1.0-4.8); Lymphocytes % (A) 18 %; MCH 25.6 pg (25.0-35.0); MCHC 31.9 g/dL (31.0-37.0); MCV 80.2 fL (80.0-100.0); Monocytes # (A) 0.4 k/uL (0-1.0); Monocytes % (A) 6 %; Neutrophils # (A) 4.4 k/uL (1.3-7.7); Neutrophils % (A) 73 %; Platelet Count 314 k/uL (150-450); RBC 4.52 m/uL (3.80-5.40); RDW 14.7 % (11.5-15.5); WBC 6.1 k/uL (3.8-10.6)
[2022-11-01 12:31] LABS: ALT 18 U/L (4-34); AST 27 U/L (14-36); African American GFR (CKD) >90 (>60 ml/min/1.73 sqM); Alkaline Phosphatase 117 U/L (38-126); Anion Gap 8 mmol/L; Blood Urea Nitrogen 17 mg/dL (7-17); Calcium 9.4 mg/dL (8.4-10.2); Carbon Dioxide 22 mmol/L (22-30); Chloride 107 mmol/L (98-107); Glucose 92 mg/dL (74-99); Magnesium 1.8 mg/dL (1.6-2.3); Non-African American GFR(CKD) 87 (>60 ml/min/1.73 sqM); Potassium 4.1 mmol/L (3.5-5.1); Sodium 137 mmol/L (137-145); Total Bilirubin 0.6 mg/dL (0.2-1.3); Total Protein 6.9 g/dL (6.3-8.2)
--- NOTE | 2022-11-01 12:33 | ED ---
General Adult HPI - General Chief complaint: Chest Pain Stated complaint: chest pain Time Seen by Provider: 11/01/22 11:20 Source: patient, RN notes reviewed, old records reviewed Mode of arrival: ambulatory Limitations: no limitations - History of Present Illness Initial comments: Patient is a 66-year-old female who presents emergency Department complaining of heart palpitations. The triage note states chest pain, however's patient states that is more she can feel her heart beating. States this has been occurring for the last 1-2 weeks. Does have a history of multiple cardiac stents. Denies any shortness of breath. Denies any cough, fevers, chills. Denies nausea, vomiting, abdominal pain. Does state she had Covid approximately one month ago. She has noticed increased fatigue since then that is unchanged as well as the heart palpitations. 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 Presents for further evaluation at this time as the heart palpitations seemed somewhat worse over the last day or so. Patient is on Brillinta. No known history of blood clots. Denies lower extremity swelling or edema. - Related Data Home Medications Medication Instructions Recorded Confirmed FLUoxetine HCL 40 mg PO DAILY 03/10/22 11/01/22 Omeprazole 20 mg PO DAILY 03/10/22 11/01/22 Previous Rx's Medication Instructions Recorded Aspirin 81 mg PO DAILY 90 Days #90 tab 03/12/22 Atorvastatin [Lipitor] 80 mg PO HS 90 Days #90 tab 03/12/22 Nitroglycerin Sl Tabs [Nitrostat] 0.4 mg SUBLINGUAL Q5M PRN #25 tab 03/12/22 Ticagrelor [Brilinta] 90 mg PO BID 90 Days #180 tab 03/12/22 Allergies Allergy/AdvReac Type Severity Reaction Status Date / Time Penicillins Allergy Rash/Hives Verified 11/01/22 13:07 Review of Systems ROS Statement: Those systems with pertinent positive or pertinent negative responses have been documented in the HPI. Review of Systems: CONST: Denies fever EYES: Denies blurry vision ENT: Denies nasal congestion C/V: Endorses palpitations RESP: Denies shortness of breath GI: Denies abdominal pain : Denies dysuria SKIN: Denies rash. MSK: Denies joint pain. NEURO: Denies headache ROS Other: All systems not noted in ROS Statement are negative. Past Medical History Past Medical History: Coronary Artery Disease (CAD), GERD/Reflux, Hyperlipide evelio, Myocardial Infarction (DC) Additional Past Medical History / Comment(s): Recent hypotension, ischemic cardiomyopathy Last Myocardial Infarction Date:: 03/10/22 History of Any Multi-Drug Resistant Organisms: None Reported Past Surgical History: Heart Catheterization With Stent, Tubal Ligation Past Anesthesia/Blood Transfusion Reactions: No Reported Reaction Additional Past Anesthesia/Blood Transfusion Reaction / Comment(s): Pt has motion sickness Date of Last Stent Placement:: 03/10/2022 Past Psychological History: Anxiety Smoking Status: Former smoker Past Alcohol Use History: None Reported Past Drug Use History: None Reported - Past Family History Mother Family Medical History: CVA/TIA Additional Family Medical History / Comment(s): TIAs, stomach issues Father Family Medical History: Cancer, Diabetes Mellitus Additional Family Medical History / Comment(s): Heart problems General Exam - General Exam Comments Initial Comments: General: Appears in no acute distress. HEAD: Normal with no signs of head trauma. EYES: PERRLA, EOMI, conjunctiva normal, no discharge. ENT: Hearing grossly intact, normal oropharynx. RESPIRATORY: Clear breath sounds bilaterally. No wheezes, rales, or rhonchi. C/V: Regular rate and rhythm. S1 and S2 auscultated, no edema, peripheral pulses 2+ and intact throughout ABD: Abd is soft, nontender, nondistended EXT: Normal range of motion, no obvious deformity SKIN: No rashes or lesions observed on exposed skin. NEURO: Alert and oriented x 4. Cranial nerves II-XII intact. No focal sensory or strength deficits. Limitations: no limitations Course Vital Signs 11/01/22 11/01/22 10:55 11:56 Temperature 98 F Pulse Rate 102 H 82 Respiratory 24 20 Rate Blood Pressure 137/73 132/82 O2 Sat by Pulse 99 96 Oximetry Medical Decision Making - Medical Decision Making Based on the patient's presentation and physical exam, she does have a significant cardiac history and I would like to obtain cardiopulmonary labs including screening d-dimer. She was in agreement with this plan. Chest x-ray and EKG will also be obtained. Vital signs within acceptable limits. We will attempt treatment with chewable aspirin, but 100 mL fluid bolus, and patient will be administered nitroglycerin tablets to either valve for improvement in symptoms. She was in agreement this plan. Chest x-ray showed no signs of acute bipolar process, EKG showed no acute ischemic process. Laboratory studies were remarkable for an undetectable troponin, BNP within normal limits. D-dimer is within acceptable limits for the patient's age. Patient is still testing positive for Covid but negative for RSV and flu. On reevaluation, patient remains relatively asymptomatic. Nitroglycerin tablets had no effect on her symptoms. I discussed the workup with her. She does appear relieved. Patient's palpitations are improved at this time. No chest discomfort. The decision making was made, as the patient is feeling improved and she decided she'll be discharged home at this time. I was in agreement this plan and is workup is largely benign with multiple days of symptoms. I did offer her observation admission which she declined at this time. We discussed that this could be related to continued Covid-like symptoms as there is a possibility of long Covid syndrome for her. She expressed understanding. I recommended follow-up with her PCP next week. She was in agreement the plan. Strict return precautions were discussed. I instructed the patient to follow up with their PCP in the next 1-3 days. I explained that the patient should return to the emergency department if they experience any worsening symptoms. Strict return precautions were discussed with the patient. The patient expressed understanding of these instructions. I answered all questions that the patient had. The patient was discharged home in good condition with their prescriptions and follow up information. Was pt. sent in by a medical professional or institution (, [facility], TECHNICAL PROJECT LEAD, urgent care, hospital, or care home...) When possible be specific @ -No Did you speak to anyone other than the patient for history (EMS, parent, family, police, friend...)? What history was obtained from this source @ -No Did you review nursing and triage notes (agree or disagree)? Why? @ -I reviewed and agree with nursing and triage notes, except patient is not complaining of chest pain but more complaining of heart palpitations. No obvious or demond chest pain. Were old charts reviewed (outside hosp., previous admission, EMS record, old EKG, old radiological studies, urgent care reports/EKG's, care home records)? Report findings @ -Yes, old charts were reviewed including EKG from July 2022. Differential Diagnosis (chest pain, altered mental status, abdominal pain women, abdominal pain men, vaginal bleeding, weakness, fever, dyspnea, syncope, headache, dizziness, GI bleed, back pain, seizure, CVA, palpatations, mental health)? @ -PE, CAD, Covid, flu, pneumonia, infection, dehydration. This list is not all inclusive. EKG interpreted by me (3pts min.). @ -As above X-rays interpreted by me (1pt min.). @ -Chest x-ray reveals no acute cardio pulmonary process, infiltrate. CT interpreted by me (1pt min.). @ -None done U/S interpreted by me (1pt. min.). @ -None done What testing was considered but not performed or refused? (CT, X-rays, U/S, labs)? Why? @ -None What meds were considered but not given or refused? Why? @ -None Did you discuss the management of the patient with other professionals (professionals i.e. , PA, TECHNICAL PROJECT LEAD, lab, RT, psych nurse, social science teacher, polysomnographer, teacher, security flex utility officer, caseworker)? Give summary @ -No Was smoking cessation discussed for >3mins.? @ -No Was critical care preformed (if so, how long)? @ -No Were there social determinants of health that impacted care today? How? (Homelessness, low income, unemployed, alcoholism, drug addiction, transportation, low edu. Level, literacy, decrease access to med. care, [facility], rehab)? @ -No Was there de-escalation of care discussed even if they declined (Discuss DNR or withdrawal of care, Hospice)? DNR status @ -No What co-morbidities impacted this encounter? (DM, HTN, Smoking, COPD, CAD, Cancer, CVA, ARF, Chemo, Hep., AIDS, mental health diagnosis, sleep apnea, morbid obesity)? @ -History of CAD. Was patient admitted / discharged? Hospital course, mention meds given and route, prescriptions, significant lab abnormalities, going to OR and other pertinent info. @ -Discharged home. See above for ED course. Undiagnosed new problem with uncertain prognosis? @ -No Drug Therapy requiring intensive monitoring for toxicity (Heparin, Nitro, Insulin, Cardizem)? @ -No Were any procedures done? @ -No Diagnosis/symptom? @ -Heart palpitations Acute, or Chronic, or Acute on Chronic? @ -Acute Uncomplicated (without systemic symptoms) or Complicated (systemic symptoms)? @ -Uncomplicated Side effects of treatment? @ -No Exacerbation, Progression, or Severe Exacerbation? @ -No Poses a threat to life or bodily function? How? (Chest pain, USA, DC, pneumonia, PE, COPD, DKA, ARF, appy, cholecystitis, CVA, Diverticulitis, Homicidal, S uicidal, threat to staff... and all critical care pts) @ -No Diagnosis/symptom? @ -COVID-19 positive Acute, or Chronic, or Acute on Chronic? @ -Acute on chronic Uncomplicated (without systemic symptoms) or Complicated (systemic symptoms)? @ -Uncomplicated Side effects of treatment? @ -none Exacerbation, Progression, or Severe Exacerbation] @ -no Poses a threat to life or bodily function? @ -no - Lab Data Result diagrams: 11/01/22 11:55 11/01/22 11:55 Lab Results 11/01/22 11/01/22 11/01/22 Range/Units 11:55 11:55 11:55 WBC 6.1 (3.8-10.6) k/uL RBC 4.52 (3.80-5.40) m/uL Hgb 11.6 (11.4-16.0) gm/dL Hct 36.2 (34.0-46.0) % MCV 80.2 (80.0-100.0) fL MCH 25.6 (25.0-35.0) pg MCHC 31.9 (31.0-37.0) g/dL RDW 14.7 (11.5-15.5) % Plt Count 314 (150-450) k/uL MPV 7.0 Neutrophils % 73 % Lymphocytes % 18 % Monocytes % 6 % Eosinophils % 2 % Basophils % 0 % Neutrophils # 4.4 (1.3-7.7) k/uL Lymphocytes # 1.1 (1.0-4.8) k/uL Monocytes # 0.4 (0-1.0) k/uL Eosinophils # 0.1 (0-0.7) k/uL Basophils # 0.0 (0-0.2) k/uL PT 10.0 (9.0-12.0) sec INR 0.9 (<1.2) APTT 22.1 (22.0-30.0) sec D-Dimer 0.53 (<0.60) mg/L FEU Sodium 137 (137-145) mmol/L Potassium 4.1 (3.5-5.1) mmol/L Chloride 107 (98-107) mmol/L Carbon Dioxide 22 (22-30) mmol/L Anion Gap 8 mmol/L BUN 17 (7-17) mg/dL Creatinine 0.72 (0.52-1.04) mg/dL Est GFR (CKD-EPI)AfAm >90 (>60 ml/min/1.73 sqM) Est GFR (CKD-EPI)NonAf 87 (>60 ml/min/1.73 sqM) Glucose 92 (74-99) mg/dL Calcium 9.4 (8.4-10.2) mg/dL Magnesium 1.8 (1.6-2.3) mg/dL Total Bilirubin 0.6 (0.2-1.3) mg/dL AST 27 (14-36) U/L ALT 18 (4-34) U/L Alkaline Phosphatase 117 (38-126) U/L Troponin I (0.000-0.034) ng/mL NT-Pro-B Natriuret Pep pg/mL Total Protein 6.9 (6.3-8.2) g/dL Albumin 4.0 (3.5-5.0) g/dL Influenza Type A (PCR) (Not Detectd) Influenza Type B (PCR) (Not Detectd) RSV (PCR) (Not Detectd) SARS-CoV-2 (PCR) (Not Detectd) 11/01/22 11/01/22 11/01/22 Range/Units 11:55 11:55 11:55 WBC (3.8-10.6) k/uL RBC (3.80-5.40) m/uL Hgb (11.4-16.0) gm/dL Hct (34.0-46.0) % MCV (80.0-100.0) fL MCH (25.0-35.0) pg MCHC (31.0-37.0) g/dL RDW (11.5-15.5) % Plt Count (150-450) k/uL MPV Neutrophils % % Lymphocytes % % Monocytes % % Eosinophils % % Basophils % % Neutrophils # (1.3-7.7) k/uL Lymphocytes # (1.0-4.8) k/uL Monocytes # (0-1.0) k/uL Eosinophils # (0-0.7) k/uL Basophils # (0-0.2) k/uL PT (9.0-12.0) sec INR (<1.2) APTT (22.0-30.0) sec D-Dimer (<0.60) mg/L FEU Sodium (137-145) mmol/L Potassium (3.5-5.1) mmol/L Chloride (98-107) mmol/L Carbon Dioxide (22-30) mmol/L Anion Gap mmol/L BUN (7-17) mg/dL Creatinine (0.52-1.04) mg/dL Est GFR (CKD-EPI)AfAm (>60 ml/min/1.73 sqM) Est GFR (CKD-EPI)NonAf (>60 ml/min/1.73 sqM) Glucose (74-99) mg/dL Calcium (8.4-10.2) mg/dL Magnesium (1.6-2.3) mg/dL Total Bilirubin (0.2-1.3) mg/dL AST (14-36) U/L ALT (4-34) U/L Alkaline Phosphatase (38-126) U/L Troponin I <0.012 (0.000-0.034) ng/mL NT-Pro-B Natriuret Pep 159 pg/mL Total Protein (6.3-8.2) g/dL Albumin (3.5-5.0) g/dL Influenza Type A (PCR) Not Detected (Not Detectd) Influenza Type B (PCR) Not Detected (Not Detectd) RSV (PCR) Not Detected (Not Detectd) SARS-CoV-2 (PCR) Detected A (Not Detectd) - EKG Data -: EKG Interpreted by Me EKG Comments: 12-lead Electrocardiogram Interpretation Note EKG was reviewed and interpreted by myself. 12-lead ECG performed at 1103 is interpreted by me as revealing normal sinus rhythm at a rate of 76 beats per minute. [place] is normal. HI interval is 165 ms, QRS duration is 91 ms, QTc is 409 ms.. There were no ST or T wave abnormalities to suggest myocardial i schemia or injury. R wave progression across the precordium was satisfactory. By my interpretation this EKG is non-diagnostic for acute ischemia. Disposition Clinical Impression: Heart palpitations, COVID-19 Disposition: HOME SELF-CARE Condition: Good Instructions (If sedation given, give patient instructions): Heart Palpitations (ED) Is patient prescribed a controlled substance at d/c from ED?: No Referrals: Antonia Cee DO [Primary Care Provider] - 1-2 days Time of Disposition: 13:30
[2022-11-01 12:37] LABS: INR 0.9 (<1.2); Partial Thromboplastin Time 22.1 sec (22.0-30.0)
--- NOTE | 2022-11-01 12:45 | XR ---
EXAMINATION TYPE: XR chest 2V DATE OF EXAM: 11/01/2022 12:19 PM COMPARISON: Chest radiographs from 07/24/2022 TECHNIQUE: XR chest 2V Frontal and lateral views of the chest. CLINICAL INDICATION:Female, 66 years old with history of Chest Pain; FINDINGS: Lungs/Pleura: There is no evidence of pleural effusion, focal consolidation, or pneumothorax. Pulmonary vascularity: Unremarkable. Heart/mediastinum: Cardiomediastinal silhouette is unremarkable. Musculoskeletal: No acute osseous pathology. IMPRESSION: No acute cardiopulmonary disease/process.
[2022-11-01 14:39] VITALS: BP 130/68; PULSE 68; RESP 16
== END 2022-11-01 14:39 | disposition home or self-care (01) ==
LOC: EC 10:54
DX: U07.1 COVID-19 (principal); E78.5 Hyperlipidemia, unspecified; F41.9 Anxiety disorder, unspecified; I25.10 Atherosclerotic heart disease of native coronary artery without angina pectoris; I25.2 Old myocardial infarction; K21.9 Gastro-esophageal reflux disease without esophagitis; Z79.899 Other long term (current) drug therapy; Z20.822 Contact with and (suspected) exposure to COVID-19; Z87.891 Personal history of nicotine dependence; Z88.0 Allergy status to penicillin
CPT/HCPCS: 36415; 71046; 80053; 83735; 83880; 84484; 85025; 85379; 85610; 85730; 87636; 93005; 96360; 96361; 99285

== ENCOUNTER 2023-08-17 14:16 | Observation (INO) | payer MEDICARE ==
[2023-08-17] MEDS ORDERED: ASPIRIN 81 MG PO STA (14:47)
[2023-08-17] MEDS ORDERED: NITROGLYCERIN OINT 1 INCH/GM PACKET TOPICAL STA (14:47)
--- NOTE | 2023-08-17 15:14 | ED ---
General Adult HPI - General Chief complaint: Chest Pain Stated complaint: Chest Pain/sob Time Seen by Provider: 08/17/23 14:25 Source: patient, RN notes reviewed, old records reviewed Mode of arrival: wheelchair Limitations: no limitations - History of Present Illness Initial comments: This is a 67-year-old female who presents emergency Department complaining of anterior chest pressure. Patient states she's not experienced this before. But it's feels like someone is pushing on her chest. Patient states this started about an hour ago and continues currently. Patient states she also is short of breath since this occurred. Patient denies any radiation of the pain. Patient denies any diaphoretic episodes. Patient denies any nausea. Patient denies abdominal pain. Patient denies any recent fever chills or cough. Patient denies headache patient denies numbness or weakness. Patient denies lightheadedness or dizziness. Patient denies any palpitations. Swelling to the legs or calf tenderness - Related Data Home Medications Medication Instructions Recorded Confirmed FLUoxetine HCL 40 mg PO DAILY 03/10/22 08/17/23 Omeprazole 20 mg PO DAILY 03/10/22 08/17/23 Atorvastatin [Lipitor] 80 mg PO DAILY 08/17/23 08/17/23 Previous Rx's Medication Instructions Recorded Aspirin 81 mg PO DAILY 90 Days #90 tab 03/12/22 Nitroglycerin Sl Tabs [Nitrostat] 0.4 mg SUBLINGUAL Q5M PRN #25 tab 03/12/22 Allergies Allergy/AdvReac Type Severity Reaction Status Date / Time Penicillins Allergy Rash/Hives Verified 08/17/23 15:10 Review of Systems ROS Statement: Those systems with pertinent positive or pertinent negative responses have been documented in the HPI. ROS Other: All systems not noted in ROS Statement are negative. Past Medical History Past Medical History: Coronary Artery Disease (CAD), GERD/Reflux, Hyperlipidemia, Myocardial Infarction (WA) Additional Past Medical History / Comment(s): Recent hypotension, ischemic cardiomyopathy Last Myocardial Infarction Date:: 03/10/22 History of Any Multi-Drug Resistant Organisms: None Reported Past Surgical History: Heart Catheterization With Stent, Tubal Ligation Past Anesthesia/Blood Transfusion Reactions: No Reported Reaction Additional Past Anesthesia/Blood Transfusion Reaction / Comment(s): Pt has motion sickness Date of Last Stent Placement:: 03/10/2022 Past Psychological History: Anxiety Smoking Status: Former smoker Past Alcohol Use History: None Reported Past Drug Use History: None Reported - Past Family History Mother Family Medical History: CVA/TIA Additional Family Medical History / Comment(s): TIAs, stomach issues Father Family Medical History: Cancer, Diabetes Mellitus Additional Family Medical History / Comment(s): Heart problems General Exam - General Exam Comments Initial Comments: GENERAL: Patient is well-developed and well-nourished. Patient is nontoxic and well- hydrated and is in mild distress. ENT: Neck is soft and supple. No significant lymphadenopathy is noted. Oropharynx is clear. Moist mucous membranes. Neck has full range of motion without elici ting any pain. EYES: The sclera were anicteric and conjunctiva were pink and moist. Extraocular movements were intact and pupils were equal round and reactive to light. Eyelids were unremarkable. PULMONARY: Unlabored respirations. Good breath sounds bilaterally. No audible rales rhonchi or wheezing was noted. CARDIOVASCULAR: There is a regular rate and rhythm without any murmurs gallops or rubs. ABDOMEN: Soft and nontender with normal bowel sounds. SKIN: Skin is clear with no lesions or rashes and otherwise unremarkable. NEUROLOGIC: Patient is alert and oriented x3. Cranial nerves II through XII are grossly intact. Motor and sensory are also intact. Normal speech, volume and content. Symmetrical smile. MUSCULOSKELETAL: Normal extremities with adequate strength and full range of motion. No lower extremity swelling or edema. No calf tenderness. LYMPHATICS: No significant lymphadenopathy is noted PSYCHIATRIC: Normal psychiatric evaluation. Limitations: no limitations Course Vital Signs 08/17/23 08/17/23 08/17/23 14:19 14:49 15:00 Temperature 98 F Pulse Rate 91 75 Pulse Rate [ 78 Vault Keeper ] Respiratory 22 18 Rate Blood Pressure 162/71 141/77 O2 Sat by Pulse 99 95 Oximetry 08/17/23 16:00 Temperature Pulse Rate 75 Pulse Rate [ Vault Keeper ] Respiratory 19 Rate Blood Pressure 132/86 O2 Sat by Pulse 98 Oximetry Medical Decision Making - Medical Decision Making EKG is interpreted by myself. EKG shows a sinus rhythm at 70 bpm NV interval 252 QRS is 81 QT interval 12/06/1971 QTC is 380. Patient's EKG is of poor quality but there is no obvious ST segment elevation or depression. Was pt. sent in by a medical professional or institution (Dr., PA, BAND CUTTER, urgent care, hospital, or assisted...) When possible be specific @ -No Did you speak to anyone other than the patient for history (EMS, parent, family, police, friend...)? What history was obtained from this source @ -No Did you review nursing and triage notes (agree or disagree)? Why? @ -I reviewed and agree with nursing and triage notes Were old charts reviewed (outside hosp., previous admission, EMS record, old EKG, old radiological studies, urgent care reports/EKG's, assisted records)? Report findings @ -I reviewed prior charts and prior lab work Differential Diagnosis (chest pain, altered mental status, abdominal pain women, abdominal pain men, vaginal bleeding, weakness, fever, dyspnea, syncope, he adache, dizziness, GI bleed, back pain, seizure, CVA, palpatations, mental health, musculoskeletal)? @ -Differential Chest Pain: Stable Angina, Unstable Angina, STEMI, NSTEMI Aortic Dissection, Pneumothorax, Musculoskeletal, Esophageal Spasm GERD, Cholecystitis, Pancreatitis, Zoster, this is not meant to be an all-inclusive list. EKG interpreted by me (3pts min.). @ -As above X-rays interpreted by me (1pt min.). @ -Chest x-ray showed no acute abnormality CT interpreted by me (1pt min.). @ -None done U/S interpreted by me (1pt. min.). @ -None done What testing was considered but not performed or refused? (CT, X-rays, U/S, labs)? Why? @ -None What meds were considered but not given or refused? Why? @ -None Did you discuss the management of the patient with other professionals (professionals i.e. [facility] Higgins, BAND CUTTER, lab, RT, psych nurse, social service liaison, backwinder, teacher, psychological operations officer, case briefer)? Give summary @ -I spoke with Dr. Laguna he agreed to admit the patient Was smoking cessation discussed for >3mins.? @ -No Was critical care preformed (if so, how long)? @ -No Were there social determinants of health that impacted care today? How? (Homelessness, low income, unemployed, alcoholism, drug addiction, transportation, low edu. Level, literacy, decrease access to med. care, group home, rehab)? @ -No Was there de-escalation of care discussed even if they declined (Discuss DNR or withdrawal of care, Hospice)? DNR status @ -No What co-morbidities impacted this encounter? (DM, HTN, Smoking, COPD, CAD, Cancer, CVA, ARF, Chemo, Hep., AIDS, mental health diagnosis, sleep apnea, morbid obesity)? @ -None Was patient admitted / discharged? Hospital course, mention meds given and route, prescriptions, significant lab abnormalities, going to OR and other pertinent info. @ -Patient received aspirin and Nitropaste in the emergency department after the Nitropaste was applied she felt relief of the pain and now she is pain-free. Labs came back and x-rays came back within normal limits. Patient will be admitted to Dr. Joe wrote admitting orders I consulted cardiology Undiagnosed new problem with uncertain prognosis? @ -No Drug Therapy requiring intensive monitoring for toxicity (Heparin, Nitro, Insulin, Cardizem)? @ -No Were any procedures done? @ -No Diagnosis/symptom? @ -Chest pain Acute, or Chronic, or Acute on Chronic? @ -Acute Uncomplicated (without systemic symptoms) or Complicated (systemic symptoms)? @ -Complicated Side effects of treatment? @ -No Exacerbation, Progression, or Severe Exacerbation? @ -No Poses a threat to life or bodily function? How? (Chest pain, [place], [place], pneumonia, PE, COPD, DKA, ARF, appy, cholecystitis, CVA, Diverticulitis, Homicidal, Suicidal, threat to staff... and all critical care pts) @ -Yes this has the potential to become an WA and lead to poor perfusion and en d organ dysfunction - Lab Data Result diagrams: 08/17/23 15:55 08/17/23 14:53 Lab Results 08/17/23 08/17/23 08/17/23 Range/Units 14:53 14:53 15:55 WBC 5.8 (3.8-10.6) k/uL RBC 3.98 (3.80-5.40) m/uL Hgb 9.5 L (11.4-16.0) gm/dL Hct 30.2 L (34.0-46.0) % MCV 75.9 L (80.0-100.0) fL MCH 23.8 L (25.0-35.0) pg MCHC 31.3 (31.0-37.0) g/dL RDW 16.3 H (11.5-15.5) % Plt Count 301 (150-450) k/uL MPV 7.5 Hypochromasia Marked Anisocytosis Slight Microcytosis Slight Sodium 135 L (137-145) mmol/L Potassium 4.4 (3.5-5.1) mmol/L Chloride 103 (98-107) mmol/L Carbon Dioxide 24 (22-30) mmol/L Anion Gap 8 mmol/L BUN 18 H (7-17) mg/dL Creatinine 0.71 (0.52-1.04) mg/dL Est GFR (CKD-EPI)AfAm >90 (>60 ml/min/1.73 sqM) Est GFR (CKD-EPI)NonAf 88 (>60 ml/min/1.73 sqM) Glucose 90 (74-99) mg/dL Calcium 9.3 (8.4-10.2) mg/dL Magnesium 2.1 (1.6-2.3) mg/dL Total Bilirubin 0.5 (0.2-1.3) mg/dL AST 70 H (14-36) U/L ALT 37 H (4-34) U/L Alkaline Phosphatase 125 (38-126) U/L Troponin I <0.012 (0.000-0.034) ng/mL Total Protein 6.7 (6.3-8.2) g/dL Albumin 3.8 (3.5-5.0) g/dL Disposition Clinical Impression: Chest pain Disposition: ADMITTED IP TO THIS HOSP Referrals: Antonia Cee DO [Primary Care Provider] - 1-2 days Time of Disposition: 16:59
[2023-08-17 15:16] LABS: ALT 37 U/L (4-34); African American GFR (CKD) >90 (>60 ml/min/1.73 sqM); Albumin 3.8 g/dL (3.5-5.0); Anion Gap 8 mmol/L; Blood Urea Nitrogen 18 mg/dL (7-17); Calcium 9.3 mg/dL (8.4-10.2); Carbon Dioxide 24 mmol/L (22-30); Chloride 103 mmol/L (98-107); Glucose 90 mg/dL (74-99); Non-African American GFR(CKD) 88 (>60 ml/min/1.73 sqM); Sodium 135 mmol/L (137-145); Total Bilirubin 0.5 mg/dL (0.2-1.3); Total Protein 6.7 g/dL (6.3-8.2)
--- NOTE | 2023-08-17 15:19 | XR ---
EXAMINATION TYPE: XR chest 2V DATE OF EXAM: 08/17/2023 3:15 PM COMPARISON: Chest radiographs from 11/01/2022 TECHNIQUE: XR chest 2V Frontal and lateral views of the chest. CLINICAL INDICATION:Female, 67 years old with history of Chest Pain; FINDINGS: Lungs/Pleura: There is no evidence of pleural effusion, focal consolidation, or pneumothorax. Pulmonary vascularity: Unremarkable. Heart/mediastinum: Cardiomediastinal silhouette is unremarkable. Musculoskeletal: No acute osseous pathology. Mild degenerative changes of the spine. IMPRESSION: No acute cardiopulmonary disease/process.
[2023-08-17 15:23] LABS: AST 70 U/L (14-36); Potassium 4.4 mmol/L (3.5-5.1)
[2023-08-17 15:24] LABS: Alkaline Phosphatase 125 U/L (38-126); Magnesium 2.1 mg/dL (1.6-2.3)
[2023-08-17 16:36] LABS: Anisocytosis Slight; HCT 30.2 % (34.0-46.0); HGB 9.5 gm/dL (11.4-16.0); Hypochromasia Marked; MCH 23.8 pg (25.0-35.0); MCHC 31.3 g/dL (31.0-37.0); MCV 75.9 fL (80.0-100.0); Mean Platelet Volume 7.5; Microcytosis Slight; RBC 3.98 m/uL (3.80-5.40); RDW 16.3 % (11.5-15.5); WBC 5.8 k/uL (3.8-10.6)
[2023-08-17] MEDS ORDERED: NITROGLYCERIN SL TABS 0.4 MG TAB SUBLINGUAL PRN (16:59)
[2023-08-17 17:09] LABS: Eosinophils # (M) 0.12 k/uL (0-0.7); Lymphocytes # (M) 1.39 k/uL (1.0-4.8); Monocytes # (M) 0.23 k/uL (0-1.0); Neutrophils # (M) 4.06 k/uL (1.3-7.7); Neutrophils % (M) 70 %; Nucleated Red Blood Cells 0 /100 WBC (0-0); Total Cells Counted 100
[2023-08-17] MEDS: NITROGLYCERIN OINT 1 INCH/GM PACKET TOPICAL SCH (17:43)
[2023-08-17 18:26] LABS: INR 0.9 (<1.2); Prothrombin Time 10.4 sec (10.0-12.5)
[2023-08-17 18:30] LABS: Partial Thromboplastin Time 19.1 sec (22.0-30.0)
[2023-08-18] MEDS: NITROGLYCERIN OINT 1 INCH/GM PACKET TOPICAL SCH ×2 (02:03→05:13)
[2023-08-18 07:35] VITALS: BP 131/74; RESP 17; TEMP 98.3
[2023-08-18] MEDS ORDERED: FLUoxetine HCL 20 MG CAP PO SCH (09:00)
[2023-08-18] MEDS ORDERED: PANTOPRAZOLE 40 MG TABLET PO SCH (09:00)
[2023-08-18] MEDS ORDERED: ATORVASTATIN 80 MG TAB PO SCH (09:00)
[2023-08-18] MEDS: ASPIRIN 325 MG TAB PO SCH (10:07)
[2023-08-18 10:09] VITALS: PULSE 73
--- NOTE | 2023-08-18 10:32 | P.HPIM ---
History of Present Illness H&P Date: 08/18/23 Chief Complaint: Chest pain History and Physical and Discharge Summary: This is a 67-year-old female with past medical history significant for strong family history of CAD-her father, CAD,STEMI, stents 3-most recent stent May 2022, recovered cardiomyopathy,long Covid, chronic fatigue, esophageal reflux disease, hyperlipidemia, anxiety, former nicotine dependence, occasional marijuana use and multiple other medical issues presented to the ER with complaints of midsternal chest pressure radiating to left arm and left neck accompanied by flatus, shortness of breath. Denies nausea, vomiting or abdominal pain. Reports increased fatigue, denies diaphoresis. Denies lightheadedness dizziness or focal deficits. Denies syncope. EKG reporting sinus rhythm, troponins negative 3, chest x-ray reporting nonacute. Afebrile, WBC 5.8 , hemoglobin 9.5, INR 0.9, sodium 135, potassium 4.4, bicarbonate 24, BUN 18, creatinine 0.71, magnesium 2.1 with minimally elevated AST and ALT.This morning asymptomatic, denies chest pain, palpitations or shortness of breath. Maintaining O2 sats in the high 90s on room air. Review of Systems ROS Statement: Those systems with pertinent positive or pertinent negative responses have been documented in the HPI. ROS Other: All systems not noted in ROS Statement are negative. Past Medical History Past Medical History: Coronary Artery Disease (CAD), GERD/Reflux, Hyperlipidemia, Myocardial Infarction ([place]) Additional Past Medical History / Comment(s): Recent hypotension, ischemic cardiomyopathy Last Myocardial Infarction Date:: 03/10/22 History of Any Multi-Drug Resistant Organisms: None Reported Past Surgical History: Heart Catheterization With Stent, Tubal Ligation Additional Past Surgical History / Comment(s): x3 stents Past Anesthesia/Blood Transfusion Reactions: No Reported Reaction Additional Past Anesthesia/Blood Transfusion Reaction / Comment(s): Pt has motion sickness Date of Last Stent Placement:: 05/2022 Past Psychological History: Anxiety, Depression Additional Psychological History / Comment(s): Pt resides with a roomate. She is independent Smoking Status: Never smoker Past Alcohol Use History: None Reported Additional Past Alcohol Use History / Comment(s): Pt smoked during college years. Past Drug Use History: None Reported Additional Drug Use History / Comment(s): Occasional marijuana use - Past Family History Mother Family Medical History: CVA/TIA Additional Family Medical History / Comment(s): TIAs, stomach issues Father Family Medical History: Cancer, Diabetes Mellitus Additional Family Medical History / Comment(s): Heart problems Medications and Allergies Home Medications Medication Instructions Recorded Confirmed Type FLUoxetine HCL 40 mg PO DAILY 03/10/22 08/17/23 History Omeprazole 20 mg PO DAILY 03/10/22 08/17/23 History Aspirin 81 mg PO DAILY 90 Days #90 tab 03/12/22 08/17/23 Rx Nitroglycerin Sl Tabs [Nitrostat] 0.4 mg SUBLINGUAL Q5M PRN #25 tab 03/12/22 08/17/23 Rx Atorvastatin [Lipitor] 80 mg PO DAILY 08/17/23 08/17/23 History Ferrous Sulfate [Feosol] 325 mg PO DAILY #30 tab 08/18/23 Rx Sennosides-Docusate Sodium 2 tab PO HS #30 tablet 08/18/23 Rx [Senokot-S] Allergies Allergy/AdvReac Type Severity Reaction Status Date / Time Penicillins Allergy Rash/Hives Verified 08/17/23 15:10 Physical Exam Vitals: Vital Signs Temp Pulse Pulse Pulse Resp BP BP 08/18/23 08:00 73 70 17 08/18/23 07:19 98.3 F 70 17 131/74 08/18/23 01:49 98.5 F 73 18 118/71 08/17/23 19:44 98.2 F 84 16 122/65 08/17/23 18:07 98.2 F 08/17/23 17:00 70 18 143/78 08/17/23 16:00 75 19 132/86 08/17/23 15:00 75 18 141/77 08/17/23 14:49 78 08/17/23 14:19 98 F 91 22 162/71 Pulse Ox 08/18/23 08:00 08/18/23 07:19 96 08/18/23 01:49 98 08/17/23 19:44 96 08/17/23 18:07 08/17/23 17:00 98 08/17/23 16:00 98 08/17/23 15:00 95 08/17/23 14:49 08/17/23 14:19 99 Intake and Output 08/17/23 08/18/23 08/18/23 22:59 06:59 14:59 Other: # Voids 1 2 Weight 65.771 kg Gen: Sitting up in bed, awake and alert x 3. well developed and well nourished, no acute distress HEENT: Head is atraumatic, normocephalic. Pupils equal, round. Sclerae is anicteric. NECK: Supple. No JVD. No lymphadenopathy. No thyromegaly. LUNGS: diminished breath sounds bilaterally with no wheezing or rhonchi. HEART: Regular rate and rhythm. Systolic murmur. ABDOMEN: Soft.Bowel sounds are present. No masses. No tenderness. EXTREMITIES: No pedal edema. No calf tenderness. NEUROLOGICAL: Patient is awake, alert and oriented x3. Results CBC & Chem 7: 08/17/23 15:55 08/17/23 14:53 Labs: Abnormal Lab Results - Last 24 Hours (Table) 08/17/23 08/17/23 08/17/23 Range/Units 14:53 15:55 17:56 Hgb 9.5 L (11.4-16.0) gm/dL Hct 30.2 L (34.0-46.0) % MCV 75.9 L (80.0-100.0) fL MCH 23.8 L (25.0-35.0) pg RDW 16.3 H (11.5-15.5) % APTT 19.1 L (22.0-30.0) sec Sodium 135 L (137-145) mmol/L BUN 18 H (7-17) mg/dL AST 70 H (14-36) U/L ALT 37 H (4-34) U/L Assessment and Plan Assessment: Chest pain, troponin is negative 3, acute coronary syndrome ruled out CAD, history of STEMI 03/26, History of recovered ischemic cardiomyopathy Chronic fatigue Hypertension Hyperlipidemia Gastroesophageal reflux disease Anxiety Depression Prior nicotine use Occasional marijuana use Plan: Continue on current medication regime ,monitoring and symptomatic treatment. Evaluated by cardiology, reporting patient's iron low-she had been directed to take her FeSO4 daily and had not been prior to admission. Cleared by cardiology for discharge. Cardiology discussing possible outpatient stress test. Patient will be discharged home today in a stable condition with guarded prognosis. Discharge Medication List FLUoxetine HCL 40 mg PO DAILY 03/10/22 [History] Omeprazole 20 mg PO DAILY 03/10/22 [History] Aspirin 81 mg PO DAILY 90 Days #90 tab 03/12/22 [Rx] Nitroglycerin Sl Tabs [Nitrostat] 0.4 mg SUBLINGUAL Q5M PRN #25 tab 03/12/22 [Rx] Atorvastatin [Lipitor] 80 mg PO DAILY 08/17/23 [History] Ferrous Sulfate [Feosol] 325 mg PO DAILY #30 tab 08/18/23 [Rx] Sennosides-Docusate Sodium [Senokot-S] 2 tab PO HS #30 tablet 08/18/23 [Rx] The impression and plan of care has been dictated as directed. : I performed a history and examination of this patient, discussed the same with the dictator. I agree with the dictator's note ,documented as a scribe. Any additional findings or plans will be noted.
--- NOTE | 2023-08-18 10:33 | P.CRDCN ---
History of Present Illness Consult date: 08/18/23 Consult reason: chest pain History of present illness: History of present illness: This is a 67 year old female patient of Dr. Loyd with past medical history of gastroesophageal reflux disease, coronary artery disease status post anterior STEMI 03/2022, ischemic cardiomyopathy with initial EF of 30-35% since recovered, PCI of the mid and distal LAD in May 2022, long Covid. We have been asked to evaluate the patient for chest pain. Patient states that she resented has been tired and weak first and then developed chest pain. She thought it was related to her long Covid because she feels fine this morning. Noted that her hemoglobi n was 9.3. She states her PCP had put her on iron supplement but she was unable to tolerate it due to constipation and decided to quit on her own. Patient has no chest pain at this time and no concerns. EKG sinus rhythm with no acute ST changes Chest x-ray: No acute findings Hemoglobin 9.5. Electrolytes unremarkable. Creatinine 0.71. Troponin negative 3. AST 70 and ALT 37 otherwise liver function tests are normal. Magnesium 2.1. Home cardiac medications: Aspirin 81 mg daily, atorvastatin 80 mg daily, nitroglycerin 0.4 mg sublingual as needed. Stress echocardiogram 04/2023 she was able to exercise for 4 minutes and 9 seconds, nonspecific stress EKG portion secondary to baseline EKG abnormalities, normal stress echo portion without inducible ischemia, EF 50%. Review Of Systems: At the time of my evaluation: Constitutional: No fever, no chills. No weakness, fatigue or lethargy. EENT: No headache. No dizziness. Lungs: No shortness of breath, cough, no sputum production. No wheezing. Cardiovascular: No chest pain, no lower extremity edema. No palpitations. No paroxysmal nocturnal dyspnea. No orthopnea. No lightheadedness or dizziness. No syncopal episodes. Abdominal: No abdominal pain. No nausea, vomiting. No diarrhea. No constipation. No bloody or tarry stools. Genitourinary: No dysuria.. No urinary retention. Musculoskeletal: No myalgias. No muscle weakness, no frequent falls. No back pain. No neck pain. Integumentary: No wounds. No rash. No unusual bruising. Neurologic: No aphasia. No facial droop. No change in mentation. No head injury. No headache. Physical examination: Gen: This is a 67-year-old female. She is resting in bed in no acute distress. VS: reviewed HEENT: Head is atraumatic, normocephalic. Pupils equal, round. Sclerae is anicteric. NECK: Supple. No JVD. . LUNGS: Clear to auscultation. No wheezes or rhonchi. No intercostal retractions. HEART: Regular rate and rhythm. No murmur. ABDOMEN: Soft No tenderness. EXTREMITIES: No pedal edema. No calf tenderness. NEUROLOGICAL: Patient is awake, alert and oriented x3. Assessment: Atypical chest pain, acute coronary syndrome ruled out History of ST elevated myocardial infarction and 03/2022 History of coronary artery disease History of cardiomyopathy recovered Hypertension Hyperlipidemia Chronic fatigue Plan: Continue patient's home cardiac medications Recommend adding iron tablet every other day Follow-up with Dr. Loyd in 2 weeks. Thank you kindly for this consultation. Nurse practitioner note has been reviewed, I agree with documented findings and plan of care. Patient was seen and examined. Past Medical History Past Medical History: Coronary Artery Disease (CAD), GERD/Reflux, Hyperlipidemia, Myocardial Infarction ([place]) Additional Past Medical History / Comment(s): Recent hypotension, ischemic cardiomyopathy Last Myocardial Infarction Date:: 03/10/22 History of Any Multi-Drug Resistant Organisms: None Reported Past Surgical History: Heart Catheterization With Stent, Tubal Ligation Additional Past Surgical History / Comment(s): x3 stents Past Anesthesia/Blood Transfusion Reactions: No Reported Reaction Additional Past Anesthesia/Blood Transfusion Reaction / Comment(s): Pt has motion sickness Date of Last Stent Placement:: 05/2022 Past Psychological History: Anxiety, Depression Additional Psychological History / Comment(s): Pt resides with a roomate. She is independent Smoking Status: Never smoker Past Alcohol Use History: None Reported Additional Past Alcohol Use History / Comment(s): Pt smoked during college years. Past Drug Use History: None Reported Additional Drug Use History / Comment(s): Occasional marijuana use - Past Family History Mother Family Medical History: CVA/TIA Additional Family Medical History / Comment(s): TIAs, stomach issues Father Family Medical History: Cancer, Diabetes Mellitus Additional Family Medical History / Comment(s): Heart problems Medications and Allergies Home Medications Medication Instructions Recorded Confirmed Type FLUoxetine HCL 40 mg PO DAILY 03/10/22 08/17/23 History Omeprazole 20 mg PO DAILY 03/10/22 08/17/23 History Aspirin 81 mg PO DAILY 90 Days #90 tab 03/12/22 08/17/23 Rx Nitroglycerin Sl Tabs [Nitrostat] 0.4 mg SUBLINGUAL Q5M PRN #25 tab 03/12/22 08/17/23 Rx Atorvastatin [Lipitor] 80 mg PO DAILY 08/17/23 08/17/23 History Allergies Allergy/AdvReac Type Severity Reaction Status Date / Time Penicillins Allergy Rash/Hives Verified 08/17/23 15:10 Physical Exam Vitals: Vital Signs Temp Pulse Pulse Pulse Resp BP BP 08/18/23 07:19 98.3 F 70 17 131/74 08/18/23 01:49 98.5 F 73 18 118/71 08/17/23 19:44 98.2 F 84 16 122/65 08/17/23 18:07 98.2 F 08/17/23 17:00 70 18 143/78 08/17/23 16:00 75 19 132/86 08/17/23 15:00 75 18 141/77 08/17/23 14:49 78 08/17/23 14:19 98 F 91 22 162/71 Pulse Ox 08/18/23 07:19 96 08/18/23 01:49 98 08/17/23 19:44 96 08/17/23 18:07 08/17/23 17:00 98 08/17/23 16:00 98 08/17/23 15:00 95 08/17/23 14:49 08/17/23 14:19 99 Intake and Output 08/17/23 08/18/23 08/18/23 22:59 06:59 14:59 Other: # Voids 1 2 Weight 65.771 kg Results 08/17/23 15:55 08/17/23 14:53 Cardiac Enzymes 08/17/23 08/17/23 08/17/23 Range/Units 14:53 14:53 17:24 AST 70 H (14-36) U/L Troponin I <0.012 <0.012 (0.000-0.034) ng/mL 08/17/23 Range/Units 21:21 AST (14-36) U/L Troponin I <0.012 (0.000-0.034) ng/mL Coagulation 08/17/23 Range/Units 17:56 PT 10.4 (10.0-12.5) sec APTT 19.1 L (22.0-30.0) sec CBC 08/17/23 Range/Units 15:55 WBC 5.8 (3.8-10.6) k/uL RBC 3.98 (3.80-5.40) m/uL Hgb 9.5 L (11.4-16.0) gm/dL Hct 30.2 L (34.0-46.0) % Plt Count (150-450) k/uL Comprehensive Metabolic Panel 08/17/23 Range/Units 14:53 Sodium 135 L (137-145) mmol/L Potassium 4.4 (3.5-5.1) mmol/L Chloride 103 (98-107) mmol/L Carbon Dioxide 24 (22-30) mmol/L BUN 18 H (7-17) mg/dL Creatinine 0.71 (0.52-1.04) mg/dL Glucose 90 (74-99) mg/dL Calcium 9.3 (8.4-10.2) mg/dL AST 70 H (14-36) U/L ALT 37 H (4-34) U/L Alkaline Phosphatase 125 (38-126) U/L Total Protein 6.7 (6.3-8.2) g/dL Albumin 3.8 (3.5-5.0) g/dL Current Medications Generic Name Dose Route Start Last Admin Trade Name Freq PRN Reason Stop Dose Admin Aspirin 325 mg 08/18/23 09:00 Aspirin 325 Mg Tab PO DAILY MANUELA Nitroglycerin 0.4 mg 08/17/23 16:59 Nitroglycerin Sl Tabs 0.4 Mg Tab SUBLINGUAL Q5M PRN Chest Pain Nitroglycerin 1 inch 08/17/23 18:00 08/18/23 05:13 Nitroglycerin Oint 1 Inch/Gm Packet TOPICAL Not Given Q6HR MANUELA Intake and Output 08/17/23 08/18/23 08/18/23 22:59 06:59 14:59 Other: # Voids 1 2 Weight 65.771 kg 08/17/23 15:55 08/17/23 14:53
[2023-08-18 11:04] LABS: Chol/HDL Ratio 3.37 Ratio; LDL Cholesterol,Calculated 121.2 mg/dL (0.0-131.0)
== END 2023-08-18 11:46 ==
LOC: EC 14:16 → 6NMEDSUR 16:59 → INTOOBSV 16:59 → 6NMEDSUR 17:31
PROVIDERS: ADMIT Family Medicine; ATTEND Family Medicine
DX: R07.89 Other chest pain (principal); M79.602 Pain in left arm; M54.2 Cervicalgia; I25.10 Atherosclerotic heart disease of native coronary artery without angina pectoris; I25.5 Ischemic cardiomyopathy; I10 Essential (primary) hypertension; E78.5 Hyperlipidemia, unspecified; R53.82 Chronic fatigue, unspecified; U09.9 Post COVID-19 condition, unspecified; K21.9 Gastro-esophageal reflux disease without esophagitis; T45.4X6A Underdosing of iron and its compounds, initial encounter; Z91.148 Patient's other noncompliance with medication regimen for other reason; I25.2 Old myocardial infarction; F32.A Depression, unspecified; F41.9 Anxiety disorder, unspecified; Z79.82 Long term (current) use of aspirin; Z79.899 Other long term (current) drug therapy; Z87.891 Personal history of nicotine dependence; Z95.5 Presence of coronary angioplasty implant and graft; Z98.51 Tubal ligation status; Z82.3 Family history of stroke; Z83.3 Family history of diabetes mellitus; Z82.49 Family history of ischemic heart disease and other diseases of the circulatory system; Z83.79 Family history of other diseases of the digestive system; Z80.9 Family history of malignant neoplasm, unspecified
CPT/HCPCS: 36415; 71046; 80053; 80061; 83735; 84484; 85025; 85610; 85730; 93005; 99285

== ENCOUNTER → 2024-11-30 | Day surgery (SDC) | payer MEDICARE ==
[2024-11-28 11:25] VITALS: BMI 25.0
[~2024-11-30] MED LIST: LACTATED RINGERS 1,000 ML IV SCH; MIDAZOLAM 2 MG/2 ML VIAL ONE; TETRACAINE 0.5% OPHTH (PF) DROPS 4 ML BTL OP PRN; fentaNYL (PF) 50 MCG/ML 2 ML AMP ONE
[2024-11-30] MEDS: IV FLUID CONTINUATION 1,000 ML IV ONE (09:49)
[2024-11-30] MEDS: CYCLOPENTOLATE 1% OPHTH SOLN 2 ML BTL OP PRN (09:57)
[2024-11-30] MEDS: PHENYLEPHRINE 2.5% OPHTH DRP 2ML OP PRN (10:00)
[2024-11-30 10:32] VITALS: TEMP 97.7
[2024-11-30] MEDS: EPINEPHrine (PF) 0.3 ML in BALANCED SALT IRRIG SOLN COMB2 500 ML IRRIGATION ONE (11:05)
[2024-11-30] MEDS: DUOVISC KIT (GREEN BOX) INTRAOCULA ONE ×2 (11:07)
[2024-11-30] MEDS: BALANCED SALT IRRIG SOLN COMB2 15 ML IRRIG.SOLN IRRIGATION ONE (11:07)
[2024-11-30] MEDS: LIDOCAINE 1% (PF) 10MG/ML VIAL MISCELLANE ONE (11:07)
[2024-11-30] MEDS: MOXIFLOXACIN HCL 0.5% DROPS 3 ML BTL OP PRN (11:07)
[2024-11-30] MEDS: TIMOLOL 0.5% OPHTH DROPS 5 ML BTL OP PRN (11:08)
[2024-11-30] MEDS: TRYPAN BLUE 0.06% SYRINGE 0.5 ML SYRINGE MISCELLANE ONE (11:12)
--- NOTE | 2024-11-30 11:51 | P.OP ---
Date of Procedure: 11/30/24 Preoperative Diagnosis: NS & combination mechanism mild stage Postoperative Diagnosis: same Procedure(s) Performed: PIOL & Hydrus stent implant Implants: [id number] 20.00 & Hydrus stent Anesthesia: MAC Surgeon: Jordin Kraus Pathology: none sent Condition: stable Disposition: same day Indications for Procedure: blurry vision and poor glaucoma control Operative Findings: no complications
[2024-11-30 12:32] VITALS: BP 146/63; PULSE 58; RESP 16
--- NOTE | 2024-11-30 22:29 | OP ---
OPERATIVE REPORT DATE OF SERVICE : 11/30/2024 PROCEDURES: Phacoemulsification of cataract and intraocular lens implant of the left eye with Hydrus stent implantation of the left eye. 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 ANESTHESIA: Topical. ESTIMATED BLOOD LOSS: Less than 5 mL. SPECIMENS TAKEN: None. NARRATIVE: After obtaining the appropriate consent, the patient was brought into the operating room. There, she was placed under cardiac monitoring, prepped and draped in the usual sterile manner. She was approached from her left temporal side, and at the 5 o'clock position, an MVR blade was used to create a paracentesis port. Through this opening, 1% lidocaine MPF 50:50 mix with balanced salt solution was injected into the anterior chamber. This was then followed by Trypan blue, which was allowed to dwell in the eye for 90 seconds. The Trypan blue was then irrigated away, and the eye was then stabilized with Viscoat. A second MVR opening was created at about 6 o'clock, more tangentially to the limbus and in the general direction of the nasal trabecular meshwork. The patient was then asked to rotate her head to the right, approximately 45 degrees to maintain a general gaze in that direction. A gonioprism was placed on the patient's eye and the Hydrus Microstent was passed through the temporal paracentesis placed at approximately 12:30 p.m. in the eye. The device was then advanced towards the nasal trabecular meshwork, and the trabecular meshwork was engaged and the drainage stent was then passed without difficulty into Schlemm's canal. A Sinskey hook was then used to advance the drainage device a bit further into its proper final position. The patient was then rotated back to the normal supine position. A 2.5 mm keratome was used to create a self-sealing corneal flap incision. This was followed by introduction of a cystotome to begin a continuous tear capsulorrhexis, which was completed using the Utrata forceps. Hydrodissection and hydrodelineation of the lens were accomplished with balanced salt solution. Phacoemulsification of the lens utilizing phaco chop was accomplished in 16.94 seconds at 12.1% power. Additional Xylocaine MPF was instilled into the anterior chamber. This was followed by removal of the remaining cortical material under irrigation and aspiration as well as careful polishing of the posterior capsule in the capsule vacuum mode. Provisc was then used to stabilize the capsular bag and a [employer], model CCWET0, 20.0 diopter posterior chamber intraocular lens was then advanced into the capsular bag without difficulty. The remaining viscoelastic was removed from in and around the intraocular lens, and the eye was brought to slightly above normal intra-ocular pressure after sealing both the temporal as well as the paracenteses incisions with balanced salt solution. The patient then received 2 drops of 0.5% timolol followed by 2 drops of 0.5% moxifloxacin. She was then lightly patched and shielded in the usual manner. There were no complications from the procedure. She tolerated the procedure well and was returned to outpatient recovery in good condition. MIRI / CHICO: [id number] /
== END | disposition home or self-care (01) ==
LOC: OR 09:19
PROVIDERS: ATTEND Ophthalmology
DX: H25.12 Age-related nuclear cataract, left eye (principal); H25.012 Cortical age-related cataract, left eye; H25.11 Age-related nuclear cataract, right eye; H25.011 Cortical age-related cataract, right eye; H47.393 Other disorders of optic disc, bilateral; H40.033 Anatomical narrow angle, bilateral; H52.13 Myopia, bilateral; H40.53 Glaucoma secondary to other eye disorders, bilateral; H52.223 Regular astigmatism, bilateral; H52.4 Presbyopia; H40.9 Unspecified glaucoma; I25.2 Old myocardial infarction; I25.10 Atherosclerotic heart disease of native coronary artery without angina pectoris; K21.9 Gastro-esophageal reflux disease without esophagitis; F32.A Depression, unspecified; F41.9 Anxiety disorder, unspecified; G43.909 Migraine, unspecified, not intractable, without status migrainosus; Z88.0 Allergy status to penicillin; Z79.82 Long term (current) use of aspirin; Z79.899 Other long term (current) drug therapy
CPT/HCPCS: 66991; J2250; J0171; J3010; J2003

== ENCOUNTER 2024-12-21 11:52 | Day surgery (SDC) | payer MEDICARE ==
[2024-12-12 14:03] VITALS: BMI 25.0
[~2024-12-21 11:52] MED LIST changes: -LACTATED RINGERS 1,000 ML IV SCH; -MIDAZOLAM 2 MG/2 ML VIAL ONE; +MOXIFLOXACIN HCL 0.5% DROPS 3 ML BTL OP PRN; +PILOCARPINE 2% OPHTH DROPS 15 ML BTL OP PRN; +TIMOLOL 0.5% OPHTH DROPS 5 ML BTL OP PRN; -fentaNYL (PF) 50 MCG/ML 2 ML AMP ONE
[2024-12-21] MEDS ORDERED: LACTATED RINGERS 1,000 ML IV SCH (12:05)
[2024-12-21] MEDS: IV FLUID CONTINUATION 1,000 ML IV ONE (12:20)
[2024-12-21 12:29] VITALS: TEMP 98.4
[2024-12-21] MEDS: PILOCARPINE 2% OPHTH DROPS 15 ML BTL OP PRN (12:30)
[2024-12-21] MEDS: LACTATED RINGERS 1,000 ML IV SCH (12:34)
[2024-12-21] MEDS ORDERED: fentaNYL (PF) 50 MCG/ML 2 ML AMP ONE (13:19)
[2024-12-21] MEDS ORDERED: MIDAZOLAM 2 MG/2 ML VIAL ONE (13:19)
[2024-12-21] MEDS: EPINEPHrine (PF) 0.3 ML in BALANCED SALT IRRIG SOLN COMB2 500 ML IRRIGATION ONE (13:34)
[2024-12-21] MEDS: MOXIFLOXACIN HCL 0.5% DROPS 3 ML BTL OP PRN (13:37)
[2024-12-21] MEDS: TIMOLOL 0.5% OPHTH DROPS 5 ML BTL OP PRN (13:39)
[2024-12-21] MEDS: BALANCED SALT IRRIG SOLN COMB2 15 ML IRRIG.SOLN INTRAOCULA ONE (13:39)
--- NOTE | 2024-12-21 13:47 | P.OP ---
Date of Procedure: 12/21/24 Preoperative Diagnosis: posterior synichiae, left Postoperative Diagnosis: same Procedure(s) Performed: synechiolysis, OS Implants: none Anesthesia: MAC Surgeon: Jordin Kraus Pathology: none sent Condition: stable Disposition: same day Indications for Procedure: glaucoma control Operative Findings: no complications
[2024-12-21 14:06] VITALS: BP 113/75; PULSE 75; RESP 16
--- NOTE | 2024-12-21 23:47 | OP ---
OPERATIVE REPORT DATE OF SERVICE : 12/21/2024 PROCEDURE PERFORMED: Synechiolysis of the peripheral anterior synechiae over the Hydrus stent implantation. 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 ANESTHESIA: Topical. ESTIMATED BLOOD LOSS: Less than 5 mL. SPECIMENS TAKEN: None. NARRATIVE: After obtaining the appropriate consent, the patient was brought into the operating room. There she was placed under cardiac monitoring and prepped and draped in the usual sterile manner. Using previously acquired corneal topography information, she was approached from her left temporal side and at the 5 o'clock position, an MVR blade was used to create a paracentesis port. Through this opening, 1% Xylocaine MPF 50:50 mix with balanced salt solution was injected into the anterior chamber. This was followed by stabilization of the anterior chamber with Viscoat. At the 3 o'clock position, a 2.5 mm keratome was used to create a self-sealing corneal flap incision. Additional viscoelastic was placed on the patient's cornea, and the patient was then rotated approximately 45 degrees to her right and a gonioprism was placed on the patient's eye for better illustration of the anterior chamber angle. Using both blunt dissection with a Cyclodialysis spatula as well as dissection with the viscoelastic of Viscoat, the overlap of iris onto the cornea was gently teased away over the area of where the Hydrus stent implantation had previously taken place. It appeared that 90% of the adhesions were adequately removed with a small amount of heme refluxed at the end of the procedure. The patient was then asked to rotate back to the normal supine position and under irrigation and aspiration, all remaining viscoelastic was removed from the anterior chamber. The eye was then checked for watertight integrity and the eye was brought above normal intra-ocular pressure by about 5 to 6 mmHg. She then received 2 drops of 5% timolol, 2 drops of moxifloxacin, and 2 drops of 2% pilocarpine. She was then lightly patched and shielded at the end of the procedure. There were no complications from the procedure. She tolerated the procedure well and was returned to outpatient recovery in good condition. MMODL / IJN: [id number] / [facility] HOSPITALZunilda
== END 2024-12-21 14:37 | disposition home or self-care (01) ==
LOC: OR 11:52
PROVIDERS: ATTEND Ophthalmology
DX: H21.542 Posterior synechiae (iris), left eye (principal); T85.398D Other mechanical complication of other ocular prosthetic devices, implants and grafts, subsequent encounter; H25.11 Age-related nuclear cataract, right eye; H40.033 Anatomical narrow angle, bilateral; E78.00 Pure hypercholesterolemia, unspecified; I25.2 Old myocardial infarction; D64.9 Anemia, unspecified
CPT/HCPCS: 65875; J2250; J0171; J3010

== ENCOUNTER 2025-01-11 09:20 | Day surgery (SDC) | payer MEDICARE ==
[~2025-01-11 09:20] MED LIST changes: +LACTATED RINGERS 1,000 ML IV SCH; -PILOCARPINE 2% OPHTH DROPS 15 ML BTL OP PRN
[2025-01-11] MEDS: IV FLUID CONTINUATION 1,000 ML IV ONE ×2 (09:50)
[2025-01-11] MEDS: CYCLOPENTOLATE 1% OPHTH SOLN 2 ML BTL OP PRN (09:54)
[2025-01-11 09:56] VITALS: TEMP 97.9
[2025-01-11] MEDS: PHENYLEPHRINE 2.5% OPHTH DRP 2ML OP PRN (09:57)
[2025-01-11] MEDS ORDERED: fentaNYL (PF) 50 MCG/ML 2 ML AMP ONE (11:22)
[2025-01-11] MEDS ORDERED: MIDAZOLAM 2 MG/2 ML VIAL ONE (11:22)
[2025-01-11] MEDS: EPINEPHrine (PF) 0.3 ML in BALANCED SALT IRRIG SOLN COMB2 500 ML IRRIGATION ONE (11:39)
[2025-01-11] MEDS: LIDOCAINE 1% (PF) 10MG/ML VIAL SQ ONE ×2 (11:43→11:48)
[2025-01-11] MEDS: DUOVISC KIT (GREEN BOX) INTRAOCULA ONE ×2 (11:43→11:48)
[2025-01-11] MEDS: BALANCED SALT IRRIG SOLN COMB2 15 ML IRRIG.SOLN INTRAOCULA ONE ×2 (11:43→11:47)
[2025-01-11] MEDS: ACETYLCHOLINE CHLORIDE 10 MG/ML 2 ML KIT INTRAOCULA ONE (12:13)
[2025-01-11] MEDS: FLUORESCEIN STRIPS 1 MG STRIP RIGHT EYE ONE (12:17)
[2025-01-11] MEDS: HYALURONATE SODIUM INTRAOCULAR 1 EACH SYRINGE (12MG/ML) INTRAOCULA ONE (12:17)
--- NOTE | 2025-01-11 12:20 | P.OP ---
Date of Procedure: 01/11/25 Preoperative Diagnosis: NS & CS & POAG mild, angle closure Postoperative Diagnosis: same Procedure(s) Performed: PIOL & hydrus stent implant OD Implants: [id number] 20.50 & Hydrus stent Anesthesia: MAC Surgeon: Jordin Kraus Pathology: none sent Condition: stable Disposition: same day Indications for Procedure: blurry vision and glaucoma control Operative Findings: pc rent, otherwise no complications
[2025-01-11 12:42] VITALS: BP 130/78
[2025-01-11 13:13] VITALS: PULSE 79; RESP 18
--- NOTE | 2025-01-12 00:26 | OP ---
OPERATIVE REPORT DATE OF SERVICE : 01/11/2025 PROCEDURE: Phacoemulsification of the right eye with Hydrus stent implantation, right eye. 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 ANESTHESIA: Topical. ESTIMATED BLOOD LOSS: None. SPECIMENS TAKEN: None. NARRATIVE: After obtaining the appropriate consent, the patient was brought into the operating room. There, she was placed under cardiac monitoring, prepped and draped in the usual sterile manner. She was approached from her right temporal side, and at the 11 o'clock position and 6 o'clock position, a paracentesis was performed with an MVR blade. Through this opening, 1% Xylocaine MPF 50:50 mix of balanced salt solution was injected into the anterior chamber. This was followed by Trypan blue, which was allowed to dwell in the eye for 90 seconds. This was irrigated away with balanced salt solution and the anterior chamber was then stabilized with Viscoat. The patient was then asked to rotate her head approximately 45 degrees to her left and maintain a gaze in the general direction, and a Hydrus stent was advanced through the 6 o'clock position towards the nasal trabecular meshwork. After the trabecular meshwork was engaged, advancement of the Hydrus stent within the Schlemm's canal was accomplished without any significant difficulties. Small amount of blood was refluxed at the end of this part of the procedure. The patient was then rotated back to her normal supine position, and at the 9 o'clock position, a 2.5 mm keratome was used to create a self-sealing corneal flap incision. Through this opening, a cystotome was introduced to begin a continuous tear capsulorrhexis, which was then completed using the Utrata forceps. Hydrodissection and hydrodelineation of the lens were accomplished with balanced salt solution. Phacoemulsification of the lens was accomplished in 21.57 seconds at 19.5% power. Additional Xylocaine MPF was instilled into the anterior chamber. This was followed by removal of the remaining cortical material within the lens bag. Near the end of the removal of cortical material from the equator of the bag, a small central opening was appreciated through the posterior capsule and just prior to being able to tamponade the opening with viscoelastic, a little minor pressure from the patient extended the capsular rent from 1 o'clock to 8 o'clock. The area of the opening was then tamponaded with the viscoelastic without any appreciation of vitreous escaping into the anterior chamber. A change of intra-ocular lens was made to the [employer], the LI61AO, 20.5 diopter. The lens was placed with the haptics in the ciliary sulcus, and the lens was pushed through the anterior capsule to further maintain tamponading of the vitreous material from the posterior chamber. Gentle irrigation aspiration was used to remove any remaining viscoelastic from within the anterior chamber of the eye and Miochol were used to bring about pupillary miosis. All incisional wounds were hydrated with balanced salt solution and the eye was brought to slightly higher than normal intra-ocular pressure with balanced salt solution through the superior paracentesis. The wounds were confirmed watertight with fluorescein, and then she received 2 drops of 0.5% timolol followed by 2 drops of 0.5% moxifloxacin and then was lightly patched and shielded in the usual manner. There were no other complications from the procedure She tolerated the procedure well and was returned to outpatient recovery in good condition. MMODL / IJN: [id number] /
== END 2025-01-11 13:14 | disposition home or self-care (01) ==
LOC: OR 09:20
PROVIDERS: ATTEND Ophthalmology
DX: H25.11 Age-related nuclear cataract, right eye (principal); H25.011 Cortical age-related cataract, right eye; H25.041 Posterior subcapsular polar age-related cataract, right eye; H40.1112 Primary open-angle glaucoma, right eye, moderate stage
CPT/HCPCS: 66984; C1783; V2632; V2788; J2250; J0171; J3010; J2003